=== PATIENT | female | born 1995 | race Caucasian/White ===

== ENCOUNTER 2017-05-26 15:07 | Emergency (ER) | payer OTHER, BC, SELFPAY ==
[2017-05-26 15:08] VITALS: BP 119/69; PULSE 73; RESP 16; TEMP 36.2; O2SAT 98; BMI 31.3
--- NOTE | 2017-05-26 15:29 | ED.VISSUMM ---
- ER Visit Summary Date of Service: 05/26/17 Chief Complaint: [] Rash History of Present Illness: The patient is a 21 F [] c/o rash to B/L breasts and bilateral upper extremities and left lower extremity. 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 She reports she was holding up the parts to her chest and the oil may have leaked through into her close. Physical Examination: [] Rash consistent with contact dermatitis to the breasts and left upper extremity and left lower extremity. Test Results: [] None Emergency Department Course and Treatment: [] Patient given prednisone and Benadryl in the emergency department and a prescription for prednisone for home. Treatment Plan: [] Continue taking prednisone at home. Disposition: [] Discharge, stable. Impression: [] Contact dermatitis This note was generated with [employer] dictation software. It may contain incorrect words, spelling, and punctuation that were not noted in review of the chart prior to signing ED Disposition - Plan for ED Patient: Chief Complaint: Rash Referrals: [facility] Doctor,Out of [Primary Care Provider] -
--- NOTE | 2017-05-26 15:31 | ED.DEP ---
ED Disposition - Plan for ED Patient: Disposition: Home or Assisted Living Chief Complaint: Rash Instructions: ED Dermatitis Contact Prescriptions: Prednisone [Deltasone] 40 mg PO DAILY #5 tab Referrals: [facility] Doctor,Out of [Primary Care Provider] -
[2017-05-26] MEDS: DiphenhydrAMINE 25 MG Capsule 50 MG PO (15:48)
[2017-05-26 15:59] VITALS: PULSE 71; RESP 16; O2SAT 99
== END 2017-05-26 16:00 | disposition home or self-care (01) ==
LOC: ED 15:55
PROVIDERS: Emergency Provider Emergency Medicine
DX: L25.9 Unspecified contact dermatitis, unspecified cause (principal); E03.9 Hypothyroidism, unspecified; Z79.899 Other long term (current) drug therapy
CPT/HCPCS: 99283

== ENCOUNTER 2019-04-06 00:48 | Emergency (ER) | payer OTHER, MEDICAID, SELFPAY ==
[2019-04-06 00:50] VITALS: BP 130/82; PULSE 100; RESP 15; TEMP 37.1; O2SAT 100; BMI 35.3
--- NOTE | 2019-04-06 00:57 | ED.DCSUM_ITS ---
- ER Visit Summary Date of Service: 04/06/19 Chief Complaint: Nausea and vomiting History of Present Illness: The patient is a 23 F past medical history of hypothyroidism. Currently 17 weeks due September 09, 2019. This is her first . Patient states that Saturday evening earlier tonight she started having nausea and vomiting around 7 PM. She later developed some mild left upper quadrant abdominal discomfort. No documented fever but subjectively if felt feverish. No diarrhea. No constipation. No dysuria. She has previously had a ultrasound showing a single live IUP. She denies any vaginal bleeding. Physical Examination: Young female actively vomiting. Vital signs are stable. She is afebrile. She does not look septic or toxic. HEENT exam unremarkable. Moist with membranes. Neck nontender. Lungs clear to auscultation bilaterally. Heart regular rhythm rate about 95. No murmur. Abdomen gravid uterus nontender. Normal bowel sounds no peritoneal signs. Right upper right lower quadrant unremarkable. No Jose sign or McBurney's point tenderness. Patient is moving all 4 extremities. Neurovascularly intact. No edema. Neurologically she is awake and alert with no focal motor deficits. Skin is unremarkable. Test Results: Hepatic enzymes are normal as is her lipase. Positive heart tones on ultrasound. Emergency Department Course and Treatment: Most likely patient is a viral syndrome versus nausea and vomiting of . Should be treated with a liter normal saline and IV Zofran. Patient is doing better on repeat exam at oh 2:20 AM. Positive p.o. fluids. She was also given a GI cocktail and Pepcid. Treatment Plan: Zofran as needed for nausea. Plenty of fluids and rest. [place] diet and increase slowly as tolerated. Follow-up with your [facility] for reevaluation. Disposition: Discharge Impression: Acute nausea and vomiting at 17 weeks This note was generated with [employer] dictation software. It may contain incorrect words, spelling, and punctuation that were not noted in review of the chart prior to signing ED Disposition - Plan for ED Patient: Referrals: [facility] Doctor,Out of [NON-STAFF] -
[2019-04-06] MEDS: 0.9% Normal Saline 1,000 ML 1000 ML IV (01:08)
[2019-04-06] MEDS: Ondansetron 4 MG/2 ML Vial IV (01:09)
[2019-04-06 01:37] LABS: AST(SGOT) 14 U/L (15-37); Alanine Aminotransfer ALT/SGPT 18 U/L (13-56); Albumin, Serum 3.3 g/dL (3.2-5.0); Alkaline Phosphatase 60 U/L (45-117); Bilirubin, Direct 0.08 mg/dL (0.00-0.30); Globulin 4.9 g/dL (2.2-4.2); Lipase 65 U/L (73-393); Protein, Total 8.2 g/dL (6.4-8.2)
--- NOTE | 2019-04-06 02:22 | DCINST.ED_ITS ---
ED Disposition - Plan for ED Patient: Disposition: Home or Assisted Living Instructions: VOMITING (8y-Adult) Prescriptions: Ondansetron [Zofran Odt] 4 mg PO Q8H PRN PRN #10 tab PRN Reason: Nausea Prescription Printed Additional Instructions: Follow-up with your SPOOL FIXER or emergency department technician. Zofran as needed for nausea.
[2019-04-06] MEDS: Famotidine 20 MG Tablet 40 MG PO (02:34)
[2019-04-06] MEDS: Mag Hydrox/Al Hydrox/Simeth 30 ML UDC PO (02:34)
== END 2019-04-06 02:34 | disposition home or self-care (01) ==
PROVIDERS: Emergency Provider Emergency Medicine
DX: O21.9 Vomiting of pregnancy, unspecified (principal); Z3A.17 17 weeks gestation of pregnancy; O99.282 Endocrine, nutritional and metabolic diseases complicating pregnancy, second trimester; E03.9 Hypothyroidism, unspecified; Z79.899 Other long term (current) drug therapy
CPT/HCPCS: 80076; 83690; 96361; 96374; 99283; A4216; J2405

== ENCOUNTER 2019-05-26 17:01 | Outpatient (CLI) | payer OTHER, MEDICAID, SELFPAY ==
[2019-05-26 17:33] VITALS: BMI 37.4
[2019-05-26 18:20] LABS: Color, Urine Yellow (Yellow); Glucose, Dipstick Normal (Normal); Ketone-Dipstick 5 mg/dl (Negative); Leukocyte Esterase-Dipstick 25 /ul (Negative); Nitrite-Dipstick Negative (Negative); Occult Blood-Urine Negative /ul (Negative); Protein-Dipstick Negative (Negative); Specific Gravity, Urine 1.015 (1.002-1.030); Urine Bilirubin Dipstick Negative (Negative); Urine Clarity Clear (Clear); Urine Urobilinogen Normal (Normal); Urine pH 6.5 (5.0 - 8.0)
--- NOTE | 2019-05-26 21:00 | OB.TRI.HP_ITS ---
History of Present Illness Reason For Visit: NST Date of Service: 05/26/19 Final TREV: 09/09/19 Gestational age: 24 Weeks and 6 Days Allergies Penicillins Allergy (Verified 05/26/19 17:32) Unknown sulfamethoxazole [From Bactrim] Allergy (Verified 05/26/19 17:32) Rash trimethoprim [From Bactrim] Allergy (Verified 05/26/19 17:32) Rash amoxicillin Adverse Reaction (Verified 05/26/19 17:32) Unknown Laboratory Studies: Laboratory Tests 05/26/19 Range/Units 17:45 Urine Color Yellow (Yellow) Urine Clarity Clear (Clear) Urine pH 6.5 (5.0 - 8.0) Ur Specific [place] 1.015 (1.002-1.030) Urine Protein Negative (Negative) mg/dl Urine Glucose (UA) Normal (Normal) mg/dl Urine Ketones 5 H (Negative) mg/dl Urine Occult Blood Negative (Negative) /ul Urine Nitrite Negative (Negative) Urine Bilirubin Negative (Negative) mg/dL Urine Urobilinogen Normal (Normal) mg/dl Ur Leukocyte Esterase 25 H (Negative) /ul NST - FHR Rate Baby A Baseline: 150 Decelerations:: Variable NST Reactive:: Appropriate for gestational age Impression/Plan Reassuring NST for 24 weeks for patient with decreased FM
== END 2019-05-26 19:20 | disposition home or self-care (01) ==
LOC: WPOUT 17:02 → OBT 17:03
PROVIDERS: Referring Provider Obstetrics & Gynecology; Visit Provider Obstetrics & Gynecology
DX: O36.8120 Decreased fetal movements, second trimester, not applicable or unspecified (principal); Z3A.24 24 weeks gestation of pregnancy
CPT/HCPCS: 59025; 59050; 81002; 99218; G0378

== ENCOUNTER 2019-08-29 07:00 | Inpatient (IN) | payer OTHER, MEDICAID, SELFPAY ==
[2019-05-28 13:26] VITALS: BMI 37.4
[2019-08-29] VITALS (44 sets, daily range): BP systolic 109–213; BP diastolic 55–140; PULSE 83–184; RESP 18; TEMP 36.1–37.7; O2SAT 98–100; BMI 44.3
[2019-08-29 07:00] LABS: ROM Internal Control Test YES-OK TO RESULT pt. (Internal QC); ROM Patient Test POSITIVE (Negative)
[2019-08-29] MEDS: Lactated Ringers 1,000 ML 200 ML IV ×3 (07:30→19:06)
[2019-08-29] MEDS: Lactated Ringers 500 ML 999 ML IV ×2 (07:53→17:33)
[2019-08-29 08:07] LABS: Absolute Lymphocyte Count 2.31 X10^3/uL (0.83-4.51); Absolute Neutrophil Count 11.7 X10^3/uL (2.0-7.7); Basophil# 0.03 X10^3/uL; Basophil% 0.2 % (0-1); Eosinophil# 0.03 X10^3/uL; Eosinophils% 0.2 % (0-5); Hematocrit 37.8 % (37-47); Hemoglobin 13.1 g/dL (12.0-15.0); Lymphocyte # 2.31 X10^3/ul (4.0); Lymphocyte % 15.3 % (19-41); Mean Corp Hgb Conc 34.7 g/dL (32-36); Mean Corpuscular Hgb 30.3 pg (27.0-32.0); Mean Corpuscular Volume 87.3 fL (81-99); Mean Platelet Vol. 11.4 fl (6.2-12.0); Monocyte# 0.89 X10^3/uL; Monocyte% 5.9 % (0-10); NRBC Flagged by Analyzer 0 % (0-5); Neutrophil # 11.72 X10^3/uL (2.7-7.7); Neutrophil % 77.5 % (47-70); Platelet Count 256 K/mm3 (150-450); RBC Distribution Width CV 13.9 % (11.6-14.6); RBC Distribution Width SD 43.6 fl (35.1-43.9); Red Blood Count 4.33 M/mm3 (4.2-5.4); White Blood Count 15.1 K/mm3 (4.4-11.0)
--- NOTE | 2019-08-29 08:50 | PCM.HP.OB ---
History Date of Admission: 08/29/19 Final TREV: 09/09/19 Final TREV Source: US <20 weeks Gestational age: 38 Weeks and 3 Days History of this : This is a 24 year-old, @ 38.3 wks, SROM at home in early labor Medical History: Medical History (Last Updated 06/05/19 @ 09:[address] 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, E06.3 Allergies sulfamethoxazole [From Bactrim] Allergy (Verified 08/29/19 06:31) Rash trimethoprim [From Bactrim] Allergy (Verified 08/29/19 06:31) Rash Home Medications: Home Medications Pnv No.95/Ferrous Fum/Folic AC [ Caplet] 1 ea PO DAILY 04/06/19 Levothyroxine Sodium [Synthroid] 100 mcg PO DAILY 08/29/19 Smoking Status: Former smoker Substance Use Type: Alcohol, Marijuana Number of Fetus(es): 1 History Past Pregnancies: Past Pregnancies Delivery Date Name GA/ Weeks Outcome Route Wt Sex Labor Length Anesthesia Delivery Location Provider FOB Expected Infant Delivery Method: Spontaneous Vaginal Physical Exam Vitals: Vital Signs Temp Pulse BP Pulse Ox 99.0 F 98 141/85 H 98 08/29/19 08:29 08/29/19 08:47 08/29/19 08:47 08/29/19 08:44 General: Alert, Oriented x3 Abdomen: Soft, Non Tender, Gravid Neurological: Cranial nerves II-XII grossly intact Presentation: Cephalic Cervix Dilation (cm): 3.5 - per RN Station: -2 Effacement (%): 60 Assessment/Plan This is a 24 year-old, G 1P0 @ 38.3 weeks, SROM at home in early labor admit to L&D monitor fhr/toco anticipate epidural for pain mgmt PCN for GBS pitocin for augmentation if indicated
[2019-08-29] MEDS: fentaNYL-bupivacaine (epidural) 100 ML BAG EPIDURAL ×2 (09:24→16:25)
[2019-08-29] MEDS: Ondansetron 4 MG/2 ML Vial IV ×3 (10:09→22:04)
[2019-08-29] MEDS: Oxytocin 30 units/NS 500 ml 30 UNITS/500 ML IV.SOLN IV (10:37)
--- NOTE | 2019-08-29 22:42 | PCM.PN.BLA ---
Progress Note Patient seen at bedside and examined. Vaginal exam 8.5/90/0 with caput appreciated. Difficult to tell if the fetus is in the OP presentation. At this time I discussed with the patient that she has been 7 cm since approximately 2 PM and 8 cm since approximately 4:30 PM with minimal change now with caput appreciated my recommendation is for primary section for arrest of dilation-8 cm for approximately 6 hours. Discussion of primary and risks reviewed with the patient she agrees to proceed at this time. OR staff was notified. Preoperative azithromycin 500mg and Ancef 2 g were ordered. STROKE Vital Signs/Narrative: Vital Signs Temp Pulse BP Pulse Ox 08/29/19 22:20 99.2 F H 104 H 120/69 100 08/29/19 21:18 98.2 F 95 122/71 H 100 08/29/19 20:27 98 100 08/29/19 20:26 99.3 F H 88 115/56 L 08/29/19 19:22 99.0 F 99 120/63 100
[2019-08-29] MEDS: Sodium Citrate/Citric Acid 30 ML UDC PO (22:45)
[2019-08-29] MEDS: Cefazolin 2 GM in 0.9% Normal Saline 100 ML IV (22:57)
--- NOTE | 2019-08-29 23:39 | PCM.OPRPT ---
Delivery Classification: OLEGARIO Final TREV: 09/09/19 Gestational age: 38 Weeks and 3 Days chemical technician: Farshad Grullon Type of Anesthesia:: Epidural Implants Used: none Date of Procedure: 08/29/19 Pre-Operative Diagnosis: term gestation, arrest of dilation Post-Operative Diagnosis: Same, Live female OP position, Indications: Arrest of dilation 8cm for approximately 6 hours with SROM and Adequate contractions Description of Procedure: After informed consent was obtained the patient was taken the operating room. She was then placed in the supine position. She was prepped and draped in the normal sterile fashion. Epidural Anesthesia was found to be adequate. At this time a Pfannenstiel skin incision was made with a knife was carried down to the underlying layer of the fascia. The fascial incision was then extended laterally using curved Posadas scissor. Attention was then turned to the superior aspect of the fascial edge was grasped with 2 straight [place] clamps tented up and the rectus muscle dissected off sharply using curved Posadas scissor. Attention was then turned to the inferior aspect where again [place] clamps were placed in the rectus muscles were tented up and the fascia was dissected off sharply using the curved Posadas scissor. Rectus muscles were then in the midline bluntly and peritoneum was entered bluntly. Gentle opposing traction was placed. At this time the vesicouterine peritoneum was identified. Scalpel was used to make a uterine incision in a low transverse fashion. The uterus was then entered bluntly gentle opposing traction was placed to extend this incision. Thick meconium fluid noted. 's head in OP position- was brought to the uterine incision was delivered atraumatically. Cord was clamped and cut infant was handed to the waiting nursery team. The Placenta was removed from the uterus. The uterus was then removed from the abdominal cavity. The uterus was cleared of all clots and debris using a lap. At this time the uterine incision was reapproximated using #1 Vicryl in a running locked fashion- followed by a second imbricating layer using #1 vicryl. Hemostasis was appreciated. Posterior cul-de-sac was then cleared of all clots and debris. Uterus was placed back in the abdominal cavity. Gutters were cleared of all clots and debris. Uterine incision was reevaluated and noted to be of excellent hemostasis. Zaida placed. At this time the peritoneum was grasped with Kellys reapproximated using #2 Vicryl suture in a running fashion. Fascia was then reapproximated using #1 PDS in a running fashion. Zaida placed in Subcu layer- Subcu layer was reapproximated with #2 0 vicryl suture in an interrupted fashion. Subcu layer was closed using 4-0 vicryl on a Duong needle in a subcu fashion. Dry sterile dressing was applied. Instrument lap needle count correct ?2. Anticipated normal postoperative course. Amniotic Membrane Rupture Type: Spontaneous Amniotic Fluid Description: Thick meconium - at time of delivery Placenta Disposition: [facility] Drain: [place] to straight drain Cord Entanglement: None Cord Vessel Description: 3 Vessels Esitmated Blood Loss (ml): 600 Gender: Female (1 minute): 8 (5 minute): 9 Antibiotic Given: Ancef 2 grams IV x1, Zithromax 500 mg/5 mL X1 Pt instructed on risks of surgery: Bleeding, Anesthesia Risks, Infection, Injury to surrounding structure(s) including bowel and bladder Complications: None - Admit VTE Documentation VTE Present on Admission: Yes VTE Mechan Device Prophylaxis: SCD's VTE Pharm Prophylaxis ordered?: Yes
[2019-08-29] MEDS: Oxytocin 30 units/NS 500 ml 30 UNITS/500 ML IV.SOLN 167 UNITS IV (23:55)
[2019-08-30] VITALS (15 sets, daily range): BP systolic 101–128; BP diastolic 51–88; PULSE 78–100; RESP 16–18; TEMP 36.4–37.7; O2SAT 96–100
[2019-08-30] MEDS: HYDROmorphone 1 MG/ML Syringe IV ×2 (00:09→03:20)
[2019-08-30] MEDS: Lactated Ringers 1,000 ML 100 ML IV (02:46)
[2019-08-30] MEDS: Ketorolac 30 MG/ML Syringe IV ×4 (06:00→23:58)
[2019-08-30] MEDS: Levothyroxine 100 MCG Tablet PO (06:06)
[2019-08-30 06:16] LABS: Hematocrit 32.6 % (37-47); Hemoglobin 10.6 g/dL (12.0-15.0); Mean Corp Hgb Conc 32.5 g/dL (32-36); Mean Corpuscular Hgb 29.6 pg (27.0-32.0); Mean Corpuscular Volume 91.1 fL (81-99); Platelet Count 202 K/mm3 (150-450); RBC Distribution Width CV 14.3 % (11.6-14.6); RBC Distribution Width SD 47.7 fl (35.1-43.9); Red Blood Count 3.58 M/mm3 (4.2-5.4); White Blood Count 18.9 K/mm3 (4.4-11.0)
[2019-08-30 06:20] LABS: Scan Indicated on CBC? Y/N NO
--- NOTE | 2019-08-30 08:25 | PCM.PN.OB ---
Subjective: pt seen at bedside, doing well. pt reports good pain control. lochia mild. Breast feeding. Shepherd still in place. denies N/v or flatus at this time. - Physical Exam Vitals/I&O's: Vital Signs Temp Pulse Resp BP Pulse Ox 97.6 F L 89 18 123/52 H 98 08/30/19 07:50 08/30/19 07:50 08/30/19 07:50 08/30/19 07:50 08/30/19 07:50 Oxygen Delivery Method Room Air Weight: 96.162 kg Body Mass Index (BMI) 44.3 Intake and Output for Last 24 Hours 08/28/19 08/29/19 08/30/19 23:59 23:59 23:59 Intake Total 4068.60 / 4068.60 1575.95 / 1575.95 Output Total 500 / 500 250 / 250 Balance 3568.60 / 3568.60 1325.95 / 1325.95 General: Alert, Oriented x3 Abdomen: Soft, Non-Distended, - - fundus firm, dressing dry and intact Extremities: No Calf Tenderness Laboratory Results 08/29/19 07:52: Blood Type A POSITIVE, Antibody Screen NEGATIVE 08/30/19 06:03: WBC 18.9 H, RBC 3.58 L, Hgb 10.6 L, Hct 32.6 L, MCV 91.1, MCH 29.6, MCHC 32.5 D, RDW Std Deviation 47.7 H, RDW Coeff of Miguel 14.3, Plt Count 202, MPV 11.0 Current Medications Acetaminophen (Tylenol) 1,000 mg PO Q8H PRN PRN PRN Reason: Pain Score 1-3/10;Temp>99.6F Bisacodyl (Dulcolax) 10 mg RECTAL UD PRN PRN Reason: If no BM Enoxaparin Sodium (Lovenox) 40 mg SC BID YARI Hydrocortisone (Hytone) 1 applic TOPICAL TID PRN PRN; Protocol PRN Reason: Discomfort Hydromorphone HCl (Dilaudid Inj) 0.5 - 1.5 mg IV Q3H PRN PRN PRN Reason: Pain Score 4-10/10 Stop: 08/30/19 23:47 Last Admin: 08/30/19 03:20 Dose: 1 mg Documented by: Lactated Ringer's () 1,000 mls @ 100 mls/hr IV .Q10H [facility] Last Admin: 08/30/19 02:46 Dose: 100 mls/hr Documented by: Naloxone HCl 4 mg/ Dextrose 504 mls @ 0 mls/hr IV .Q0M PRN; Protocol PRN Reason: Respiratory depression Ibuprofen (Motrin) 600 mg PO Q6H PRN PRN PRN Reason: Pain Score 1-3/10 Ketorolac Tromethamine (Toradol (Bkc)) 30 mg IV Q6H [facility] Stop: 09/01/19 00:01 Last Admin: 08/30/19 06:00 Dose: 30 mg Documented by: Levothyroxine Sodium (Synthroid) 100 mcg PO DAILY@0600 [facility] Last Admin: 08/30/19 06:06 Dose: 100 mcg Documented by: Methylergonovine Maleate (Methergine) 0.2 mg IM X1 PRN PRN Reason: Uterine Atony Naloxone HCl (Narcan) 0.02 mg IV Q1M PRN PRN Reason: RR <10 and pt unresponsive Ondansetron HCl (Zofran) 4 mg IV Q4H PRN PRN PRN Reason: Nausea Oxycodone HCl (Oxyir) 5 - 10 mg PO Q4H PRN PRN PRN Reason: Pain Score 4-10/10 Prochlorperazine Edisylate (Compazine Iv) 10 mg IV Q6H PRN PRN PRN Reason: NAUSEA Senna/Docusate Sodium (Senokot-S, Larissa-Colace) 0 tablet PO DAILY PRN PRN Reason: Constipation Simethicone (Mylicon) 80 mg PO PCHS PRN PRN Reason: Indigestion/stomach pain Sodium Chloride () 5 - 15 ml IV UD PRN PRN Reason: SALINE FLUSH Medical Necessity - Tobacco Use Smoking Status: Former smoker Assessment/Plan POD#1, doing well routine care pain mgmt ambulation sherry shepherd
[2019-08-30] MEDS: Senna/Docusate Sodium 1 Tablet PO (09:20)
[2019-08-30] MEDS: oxyCODONE 5 MG Tablet PO ×4 (09:21→21:38)
[2019-08-30] MEDS: 0.9% Saline Lock 10 ML Syringe IV ×4 (09:41→23:58)
[2019-08-30] MEDS: Enoxaparin 40 MG/0.4 ML Syringe SC ×2 (12:35→21:39)
[2019-08-31 01:10] VITALS: BP 129/76; PULSE 98; RESP 18; TEMP 37.1
--- NOTE | 2019-08-31 01:10 | NURSING ---
RN called to room by patient. Patient reported passing a large clot into the toilet. This RN evaluated clot and it looked medium in size. Larger than a grape but smaller than an egg. Assessed fundus and it was -1, midline, and semi-firm. Massaged to completely firm. No large gushes during massage. Vital signs stable with BP: 129/76, HR: 98, Resp: 18, temp 98.8. Patient stated it was the first clot she had passed since delivery and that bleeding on the pad was light. After assessment, this RN decided no further action was needed at this time. Instructed patient to call RN to room if another clot was passed for further assessment.
[2019-08-31] MEDS: Acetaminophen 500 MG Tablet 1000 MG PO (04:07)
[2019-08-31] MEDS: Ketorolac 30 MG/ML Syringe IV ×3 (05:51→17:41)
[2019-08-31] MEDS: 0.9% Saline Lock 10 ML Syringe IV ×3 (05:51→17:41)
[2019-08-31] MEDS: Levothyroxine 100 MCG Tablet PO (05:56)
[2019-08-31 08:00] VITALS: BP 128/60; PULSE 88; RESP 16; TEMP 36.3; O2SAT 99
[2019-08-31] MEDS: Enoxaparin 40 MG/0.4 ML Syringe SC ×2 (09:37→21:50)
[2019-08-31] MEDS: oxyCODONE 5 MG Tablet PO ×2 (11:33→21:50)
[2019-08-31 11:37] VITALS: BP 138/79; PULSE 94; RESP 18; O2SAT 98
--- NOTE | 2019-08-31 11:41 | NURSING ---
Patient called and requested pain medication for pain rating of 8/10. States she woke up in a lot of pain. She had just been up to the restroom and passed a clot in the toilet. I visualized the clot which was about the size of the palm of my hand. Fundus is -2, firm and midline. Lochia has been appropriate. Vitals taken and recorded. Patient denies feeling dizzy or lightheaded when up. Will notify OB when she rounds unit shortly.
--- NOTE | 2019-08-31 13:10 | CASEMGMT ---
Social Work Assessment Labor and Delivery Unit Patient Address: [address] [place] [address] Phone number: [phone] Date of Referral: 08/29/2019 Time of Referral: 234 Referred By: Dr. Ontiveros Date of Intervention: 08/31/2019 Time of Intervention: 1310 Reason for Referral: mental health History obtained from: medical records, patient/mother of baby (MOB), and father of baby (FOB) Doug Elliott Household composition: MOB and FOB live with MOB's parents. Home is reported as safe and adequate. Patient's parent/guardian status: ELENITA Resendiz (age 22) has been with FOB Doug Elliott (age 21) for 4 years. Privately, MOB denies any form of abuse, control, intimidation in this relationship. [place] baby, Mitra Elliott (born on 08.29.2017) is the first child for both. Medical History: MOB is G1, P0 to 1 after delivering Mitra. care started in [place] at 15 weeks, a transfer of care from Dr. Raymond in [place]. Transfer of care reportedly due to insurance issues. MO with history of PCOS, migraines, and hypothyroidism. Baby born via OLEGARIO at 38 weeks gestation. Birthweight 7 pounds 3 ounces. Apgars 8 and 9. Educational Status: MOB graduated from high school, reports to be able to read and write. No learning comprehension issues reported. 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 ELENITA is not currently employed but plans to look for a job when able. No concerns with finances voiced. Infant Supplies: MOB reports to have needed baby supplies including bassinet, crib, car seat, clothing, diapers, wipes, and a breast pump. Childcare/Caregiver(s): MOB and FOB. Transportation: No reported issues. Programs/Agencies Involved: Active with [facility] for food and medical. Active with WIC. MOB reports to have a counselor named Anais at [facility] (but admittedly has not gone recently). Agrees to a Help Me Grow referral. Children Services/Legal Issues: None reported. Behavioral Health Issues: Mental Health History: MOB reports history of depression and anxiety, with medications recommended during this . MOB admits she did not take the medicine and prefers counseling. MOB denies any thoughts of suicide during this , but west report a history of thoughts 2 years ago. MOB reports history of self injury by cutting, more as a way to feel in control rather than to take her life. MOB reports has not self-injured in two years. [place] Depression screen completed at [facility] visit 04.07.2019 was an 8. Today score is a 5 (see attached link). Substance Use History: MOB reports history of using alcohol and marijuana, describing this as something she did when she was younger. Denies use was problematic or that was dependent on either substance. MOB reports last use was in November or December when found out was . MOB reports ti was not hard at all to quit. MOB denies history of other drug use such as heroin, cocaine, meth, or narcotic type pills. No tobacco use at this time. Family History: ELENITA's sister with history of depression and depression. Drug Screens: maternal drugs screen on 03.20.2019 negative. Baby's urine negative at delivery. There is a meconium and this is pending. Family/Social Stressors: FOB reports he was diagnoses with depression and started on medication during ELENITA's . FOB reports his parents both have bipolar disorder, so FOAntwon was tested and it was deemed that ALIVIA has depression only. FOB reports since starting on medication this has been helpful. Support Systems: MOB reports her parents and ALIVIA's parents are all supportive. MOB reports to lean on her mother for emotional support. Depression/Shaken Baby/Safe Sleeping : Educated parents to mood and anxiety disorders, risk factors, and reinforced importance of seeking out care and support should symptoms arise and/or cause distress. Education on shaken baby prevention and safe sleeping discussed as well. ASSESSMENT: Met with MOB and FOB together and then alone with MOB to complete depression screening (also addressed DV/IPV at this time). MOB and FOB both pleasant and cooperative. Both engaged in conversation, held normal eye contact, and made appropriate comments. MOB and FOB reports to feel good about the baby, to have help at home, and to have needed supplies to care for baby. MOB and FOB both agree to a Help Me Grow referral as well. MOB denies any intent to start using marijuana again not that now . MOB reports willingness to go back to counseling should mood or anxiety issues surface. No voiced concerns by staff regarding parent/child bonding or interactions. Safe Plan of Care for related to substance use: Continue abstinence of marijuana or other substances. PLAN: MOB and baby to home when ready. [facility] resource lists provided as well as resources on mood and anxiety disorders. [facility] referral to be completed. MOB will call WIC and JFS to alert to of baby. No other services requested or indicated. -ELIDA Callejas, POCKET AND PULLEY MACHINE OPERATOR
[2019-08-31 13:23] VITALS: BP 117/66; PULSE 96; RESP 18; TEMP 36.3; O2SAT 98
--- NOTE | 2019-08-31 14:17 | PCM.PN.OB ---
Subjective: No complaints - Physical Exam Vitals/I&O's: Vital Signs Temp Pulse Resp BP Pulse Ox 97.3 F L 96 18 117/66 98 08/31/19 13:23 08/31/19 13:23 08/31/19 13:23 08/31/19 13:23 08/31/19 13:23 Oxygen Delivery Method Room Air Weight: 212 lb Body Mass Index (BMI) 44.3 Intake and Output for Last 24 Hours 08/29/19 08/30/19 08/31/19 23:59 23:59 23:59 Intake Total 4068.60 / 4068.60 3617.62 / 3617.62 Output Total 500 / 500 1050 / 1050 Balance 3568.60 / 3568.60 2567.62 / 2567.62 General: Alert, Oriented x3 Abdomen: Soft, Non Tender, Non-Distended - ff mid & below umb; incision - bandage c/d/i; some abdominal erythema on panus and on skin but no erythema near incision Extremities: No Calf Tenderness Musculoskeletal: No Tenderness to Palpation of Joints or Extremities Neurological: Cranial nerves II-XII grossly intact Current Medications Acetaminophen (Tylenol) 1,000 mg PO Q8H PRN PRN PRN Reason: Pain Score 1-3/10;Temp>99.6F Last Admin: 08/31/19 04:07 Dose: 1,000 mg Documented by: Bisacodyl (Dulcolax) 10 mg RECTAL UD PRN PRN Reason: If no BM Enoxaparin Sodium (Lovenox) 40 mg SC BID [facility] Last Admin: 08/31/19 09:37 Dose: 40 mg Documented by: Hydrocortisone (Hytone) 1 applic TOPICAL TID PRN PRN; Protocol PRN Reason: Discomfort Naloxone HCl 4 mg/ Dextrose 504 mls @ 0 mls/hr IV .Q0M PRN; Protocol PRN Reason: Respiratory depression Ibuprofen (Motrin) 600 mg PO Q6H PRN PRN PRN Reason: Pain Score 1-3/10 Ketorolac Tromethamine (Toradol (Bkc)) 30 mg IV Q6H [facility] Stop: 09/01/19 00:01 Last Admin: 08/31/19 12:03 Dose: 30 mg Documented by: Levothyroxine Sodium (Synthroid) 100 mcg PO DAILY@0600 [facility] Last Admin: 08/31/19 05:56 Dose: 100 mcg Documented by: Methylergonovine Maleate (Methergine) 0.2 mg IM X1 PRN PRN Reason: Uterine Atony Naloxone HCl (Narcan) 0.02 mg IV Q1M PRN PRN Reason: RR <10 and pt unresponsive Ondansetron HCl (Zofran) 4 mg IV Q4H PRN PRN PRN Reason: Nausea Oxycodone HCl (Oxyir) 5 - 10 mg PO Q4H PRN PRN PRN Reason: Pain Score 4-10/10 Last Admin: 08/31/19 11:33 Dose: 10 mg Documented by: Prochlorperazine Edisylate (Compazine Iv) 10 mg IV Q6H PRN PRN PRN Reason: NAUSEA Senna/Docusate Sodium (Senokot-S, Larissa-Colace) 0 tablet PO DAILY PRN PRN Reason: Constipation Last Admin: 08/30/19 09:20 Dose: 2 tablet Documented by: Simethicone (Mylicon) 80 mg PO PCHS PRN PRN Reason: Indigestion/stomach pain Last Admin: 08/30/19 21:38 Dose: 80 mg Documented by: Sodium Chloride () 5 - 15 ml IV UD PRN PRN Reason: SALINE FLUSH Last Admin: 08/31/19 12:03 Dose: 10 ml Documented by: Medical Necessity - Tobacco Use Smoking Status: Former smoker Assessment/Plan POD#2 ID - AF, no signs infection. Skin erythema - away from incision thus no concern for cellulitis. Suspect irritant dermatitis vs yeast infection. Rx nystatin cream and hydrocortisone cream given. D/c home later today per patient request.
--- NOTE | 2019-08-31 14:20 | DCINST_ITS ---
Discharge Diet: No Restrictions Discharge Activity: May not drive while taking narcotic pain medications., May Shower May resume sexual activity in: 6 weeks Weight Bearing Status: Weight bearing as tolerated Call your doctor if your incision/area has: Continuous Slow Oozing, Sudden Increased Bleeding, Increased Pain/ Swelling, Foul Smelling Discharge, Swelling at the incision site Suture Line Care: Avoid Pulling/Pushing, Avoid Pinching/Bending Cleanse incision/area with: Soap & Water Additional Instructions: If you experience any of the following, contact your healthcare provider. * Bleeding that soaks a pad every hour for 2 hours * Fever 100.4 or higher * Unrelieved incision or abdominal pain * Swelling, redness, discharge or bleeding from your incision or episiotomy site * Your incision begins to separate * Problems urinating (including inability to urinate or burning while urinating). * Visual changes * Severe headache * Flu-like symptoms * Pain or redness in one of both of your breasts * Pain, warmth, tenderness or swelling in your legs, especially the calf area * Frequent nausea and vomiting * Symptoms of depression or anxiety If you experience any of the following, call 911 or go to the nearest Emergency Room. * Chest pain * Problems breathing * Seizure activity * Partial or complete paralysis of a body part, slurred speech, weakness or drooping of the face, or a sudden inability to walk or hold your balance Allergies/Adverse Reactions: Allergies sulfamethoxazole [From Bactrim] Allergy (Verified 08/29/19 06:31) Rash trimethoprim [From Bactrim] Allergy (Verified 08/29/19 06:31) Rash Medications to take at Discharge Pnv No.95/Ferrous Fum/Folic AC [ Caplet] 1 ea PO DAILY 04/06/19 Levothyroxine Sodium [Synthroid] 100 mcg PO DAILY 08/29/19 Acetaminophen [Tylenol] 1,000 mg PO Q8H PRN PRN tablet 08/31/19 Hydrocortisone 2.5% Crm [Hytone] 1 applic TOPICAL TID PRN PRN #1 tube 08/31/19 Ibuprofen [Motrin] 600 mg PO Q6H PRN PRN tablet 08/31/19 Nystatin 1 applicatio TP TID #30 g 08/31/19 Ondansetron HCl [Zofran] 4 mg PO Q8H PRN PRN #10 tab 08/31/19 Oxycodone [Oxyir] 5 - 10 mg PO Q4H PRN PRN 5 Days #20 tab 08/31/19 Senna/Docusate Sodium [Senokot-S] 1 tab PO DAILY PRN #15 tab 08/31/19 The following prescriptions were given: Hydrocortisone 2.5% Crm [Hytone] 1 applic TOPICAL TID PRN PRN #1 tube PRN Reason: Discomfort Transmission Status: Pending to [facility] Nystatin 1 applicatio TP TID #30 g Transmission Status: Pending to [facility] Oxycodone [Oxyir] 5 - 10 mg PO Q4H PRN PRN 5 Days #20 tab PRN Reason: Pain Score 4-10/10 Transmission Status: Sent to [facility] Senna/Docusate Sodium [Senokot-S] 1 tab PO DAILY PRN #15 tab PRN Reason: Constipation Transmission Status: Pending to [facility] Ondansetron HCl [Zofran] 4 mg PO Q8H PRN PRN #10 tab PRN Reason: Nausea Transmission Status: Pending to [facility] Follow-Up: Call to make an appointment with your doctor for an incision check in 1-2 weeks. You will also need a 6 week post- follow up appointment. Test results from this visit will be discussed in further detail at your follow- up appointment, if applicable.
[2019-08-31] MEDS: Nystatin Ointment 1 APPLIC TOPICAL ×2 (16:09→21:50)
[2019-08-31] MEDS: Hydrocortisone 2.5% Crm 1 APPLIC TOPICAL (16:09)
[2019-08-31] MEDS: Senna/Docusate Sodium 1 Tablet PO (17:40)
[2019-08-31 20:22] VITALS: BP 125/75; PULSE 92; RESP 16; TEMP 36.2; O2SAT 99
[2019-09-01 01:37] VITALS: BP 121/74; PULSE 96; RESP 20; TEMP 36.8; O2SAT 100
[2019-09-01] MEDS: Acetaminophen 500 MG Tablet 1000 MG PO (04:02)
[2019-09-01] MEDS: Ibuprofen 600 MG Tablet PO (06:10)
[2019-09-01] MEDS: Senna/Docusate Sodium 1 Tablet PO (06:10)
[2019-09-01] MEDS: Levothyroxine 100 MCG Tablet PO (06:10)
[2019-09-01] MEDS: Nystatin Ointment 1 APPLIC TOPICAL (06:10)
[2019-09-01 08:11] VITALS: BP 98/64; PULSE 96; RESP 18; TEMP 36.6; O2SAT 96
[2019-09-01] MEDS: oxyCODONE 5 MG Tablet PO (08:42)
--- NOTE | 2019-09-01 10:01 | PCM.PN.OB ---
- Physical Exam Vitals/I&O's: Vital Signs Temp Pulse Resp BP Pulse Ox 97.9 F 96 18 98/64 96 09/01/19 08:11 09/01/19 08:11 09/01/19 08:11 09/01/19 08:11 09/01/19 08:11 Oxygen Delivery Method Room Air Weight: 212 lb Body Mass Index (BMI) 44.3 Intake and Output for Last 24 Hours 08/30/19 08/31/19 09/01/19 23:59 23:59 23:59 Intake Total 3617.62 / 3617.62 Output Total 1050 / 1050 Balance 2567.62 / 2567.62 General: Alert, Oriented x3 Abdomen: Soft, Non Tender, Non-Distended - ff mid & below umb; incision - bandage c/d/i; some abdominal erythema (stable) on panus and on skin but no erythema near incision Extremities: No Calf Tenderness Neurological: Cranial nerves II-XII grossly intact Current Medications Acetaminophen (Tylenol) 1,000 mg PO Q8H PRN PRN PRN Reason: Pain Score 1-3/10;Temp>99.6F Last Admin: 09/01/19 04:02 Dose: 1,000 mg Documented by: Bisacodyl (Dulcolax) 10 mg RECTAL UD PRN PRN Reason: If no BM Enoxaparin Sodium (Lovenox) 40 mg SC BID [facility] Last Admin: 08/31/19 21:50 Dose: 40 mg Documented by: Hydrocortisone (Hytone) 1 applic TOPICAL TID PRN PRN; Protocol PRN Reason: Discomfort Last Admin: 08/31/19 16:09 Dose: 1 tube Documented by: Naloxone HCl 4 mg/ Dextrose 504 mls @ 0 mls/hr IV .Q0M PRN; Protocol PRN Reason: Respiratory depression Ibuprofen (Motrin) 600 mg PO Q6H PRN PRN PRN Reason: Pain Score 1-3/10 Last Admin: 09/01/19 06:10 Dose: 600 mg Documented by: Levothyroxine Sodium (Synthroid) 100 mcg PO DAILY@0600 [facility] Last Admin: 09/01/19 06:10 Dose: 100 mcg Documented by: Methylergonovine Maleate (Methergine) 0.2 mg IM X1 PRN PRN Reason: Uterine Atony Naloxone HCl (Narcan) 0.02 mg IV Q1M PRN PRN Reason: RR <10 and pt unresponsive Nystatin (Mycostatin) 1 applic TOPICAL TID YARI; Protocol Last Admin: 09/01/19 06:10 Dose: 1 applicatio Documented by: Ondansetron HCl (Zofran) 4 mg IV Q4H PRN PRN PRN Reason: Nausea Oxycodone HCl (Oxyir) 5 - 10 mg PO Q4H PRN PRN PRN Reason: Pain Score 4-10/10 Last Admin: 09/01/19 08:42 Dose: 5 mg Documented by: Prochlorperazine Edisylate (Compazine Iv) 10 mg IV Q6H PRN PRN PRN Reason: NAUSEA Senna/Docusate Sodium (Senokot-S, Larissa-Colace) 0 tablet PO DAILY PRN PRN Reason: Constipation Last Admin: 09/01/19 06:10 Dose: 2 tablet Documented by: Simethicone (Mylicon) 80 mg PO PCHS PRN PRN Reason: Indigestion/stomach pain Last Admin: 09/01/19 00:30 Dose: 80 mg Documented by: Sodium Chloride () 5 - 15 ml IV UD PRN PRN Reason: SALINE FLUSH Last Admin: 08/31/19 17:41 Dose: 10 ml Documented by: Medical Necessity - Tobacco Use Smoking Status: Former smoker Assessment/Plan POD#3 D/c home Skin dermatitis - suspect yeast vs irritation. Continue steroid & nystatin creams. Skin around incision without erythema.
--- NOTE | 2019-09-01 10:04 | DS.PCM_ITS ---
Discharge Date and Diagnosis Date of Admission: 08/29/19 Date of Discharge: 09/01/19 - Secondary Discharge Diagnosis Chronic Problems (Last Updated 06/05/19 @ 09:[address] 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 She had a primary c- section - see operative note. Hospital course Heme - HDS, post-op CBC reviewed. ID - AF, no signs infection. Skin erythema - away from incision thus no concern for cellulitis. Suspect irritant dermatitis vs yeast infection. Rx nystatin cream and hydrocortisone cream given. GI/ - no issues. - Physical Exam Vitals/I&O's: Vital Signs Temp Pulse Resp BP Pulse Ox 97.9 F 96 18 98/64 96 09/01/19 08:11 09/01/19 08:11 09/01/19 08:11 09/01/19 08:11 09/01/19 08:11 Oxygen Delivery Method Room Air Weight: 212 lb Body Mass Index (BMI) 44.3 Intake and Output for Last 24 Hours 08/30/19 08/31/19 09/01/19 23:59 23:59 23:59 Intake Total 3617.62 / 3617.62 Output Total 1050 / 1050 Balance 2567.62 / 2567.62 Current Medications Acetaminophen (Tylenol) 1,000 mg PO Q8H PRN PRN PRN Reason: Pain Score 1-3/10;Temp>99.6F Last Admin: 09/01/19 04:02 Dose: 1,000 mg Documented by: Bisacodyl (Dulcolax) 10 mg RECTAL UD PRN PRN Reason: If no BM Enoxaparin Sodium (Lovenox) 40 mg SC BID [facility] Last Admin: 08/31/19 21:50 Dose: 40 mg Documented by: Hydrocortisone (Hytone) 1 applic TOPICAL TID PRN PRN; Protocol PRN Reason: Discomfort Last Admin: 08/31/19 16:09 Dose: 1 tube Documented by: Naloxone HCl 4 mg/ Dextrose 504 mls @ 0 mls/hr IV .Q0M PRN; Protocol PRN Reason: Respiratory depression Ibuprofen (Motrin) 600 mg PO Q6H PRN PRN PRN Reason: Pain Score 1-3/10 Last Admin: 09/01/19 06:10 Dose: 600 mg Documented by: Levothyroxine Sodium (Synthroid) 100 mcg PO DAILY@0600 [facility] Last Admin: 09/01/19 06:10 Dose: 100 mcg Documented by: Methylergonovine Maleate (Methergine) 0.2 mg IM X1 PRN PRN Reason: Uterine Atony Naloxone HCl (Narcan) 0.02 mg IV Q1M PRN PRN Reason: RR <10 and pt unresponsive Nystatin (Mycostatin) 1 applic TOPICAL TID [facility]; Protocol Last Admin: 09/01/19 06:10 Dose: 1 applicatio Documented by: Ondansetron HCl (Zofran) 4 mg IV Q4H PRN PRN PRN Reason: Nausea Oxycodone HCl (Oxyir) 5 - 10 mg PO Q4H PRN PRN PRN Reason: Pain Score 4-10/10 Last Admin: 09/01/19 08:42 Dose: 5 mg Documented by: Prochlorperazine Edisylate (Compazine Iv) 10 mg IV Q6H PRN PRN PRN Reason: NAUSEA Senna/Docusate Sodium (Senokot-S, Larissa-Colace) 0 tablet PO DAILY PRN PRN Reason: Constipation Last Admin: 09/01/19 06:10 Dose: 2 tablet Documented by: Simethicone (Mylicon) 80 mg PO PCHS PRN PRN Reason: Indigestion/stomach pain Last Admin: 09/01/19 00:30 Dose: 80 mg Documented by: Sodium Chloride () 5 - 15 ml IV UD PRN PRN Reason: SALINE FLUSH Last Admin: 08/31/19 17:41 Dose: 10 ml Documented by: Discharge Diet: No Restrictions Discharge Activity: May not drive while taking narcotic pain medications., May Shower May resume sexual activity in: 6 weeks Weight Bearing Status: Weight bearing as tolerated Call your doctor if your incision/area has: Continuous Slow Oozing, Sudden Increased Bleeding, Increased Pain/ Swelling, Foul Smelling Discharge, Swelling at the incision site Suture Line Care: Avoid Pulling/Pushing, Avoid Pinching/Bending Cleanse incision/area with: Soap & Water Home Medications: Medications to take at Discharge Pnv No.95/Ferrous Fum/Folic AC [ Caplet] 1 ea PO DAILY 04/06/19 Levothyroxine Sodium [Synthroid] 100 mcg PO DAILY 08/29/19 Acetaminophen [Tylenol] 1,000 mg PO Q8H PRN PRN tab 08/31/19 Hydrocortisone 2.5% Crm [Hytone] 1 applic TOPICAL TID PRN PRN #1 tube 08/31/19 Ibuprofen [Motrin] 600 mg PO Q6H PRN PRN tab 08/31/19 Nystatin 1 applicatio TP TID #30 g 08/31/19 Ondansetron HCl [Zofran] 4 mg PO Q8H PRN PRN #10 tab 08/31/19 Oxycodone [Oxyir] 5 - 10 mg PO Q4H PRN PRN 5 Days #20 tab 08/31/19 Senna/Docusate Sodium [Senokot-S] 1 tab PO DAILY PRN #15 tab 08/31/19 Following Prescrptions Were Given to Patient: Hydrocortisone 2.5% Crm [Hytone] 1 applic TOPICAL TID PRN PRN #1 tube PRN Reason: Discomfort Transmission Status: Received by [facility] Nystatin 1 applicatio TP TID #30 g Transmission Status: Received by [facility] Oxycodone [Oxyir] 5 - 10 mg PO Q4H PRN PRN 5 Days #20 tab PRN Reason: Pain Score 4-10/10 Transmission Status: Received by [facility] Senna/Docusate Sodium [Senokot-S] 1 tab PO DAILY PRN #15 tab PRN Reason: Constipation Transmission Status: Received by [facility] Ondansetron HCl [Zofran] 4 mg PO Q8H PRN PRN #10 tab PRN Reason: Nausea Transmission Status: Received by [facility] Please Follow Up With: Niki Coleman MD When: Make appt for incision check in 1-2 weeks. Please Follow Up With: Niki Coleman MD When: Make appt for visit in 6 weeks. Medical Necessity - Tobacco Use Smoking Status: Former smoker Meaningful Use Info Meaningful Use Diagnoses (Choose all that apply): None applicable
--- NOTE | 2019-09-01 11:29 | CASEMGMT ---
Social Work Labor and Delivery Help Me Grow referral submitted via the [facility]'s secure web based referral form. No other services requested or indicated. Refer to prior social work notes this admission for details of interactions and resources provided. -MICHAEL Callejas, PEDIATRIC PHYSICIAN ASSISTANT
--- OUTSIDE RECORDS SUMMARY | 2020-02-02 07:57 | XMS RPT_ITS | CCD ---
:1995 External Reference #:[id number] Author Organization [facility] Care Team Providers Name Role Phone Gil Unavailable Unavailable Hadley Berumen Unavailable Unavailable Premtabi Unavailable Unavailable Qasim, N Unavailable Unavailable BIRO Unavailable Unavailable BIRO Unavailable Unavailable [place] Unavailable Unavailable Segundo Unavailable Unavailable Hadley Berumen Primary Care Provider Allergies Reported Allergen Reaction(s) Severity Date of Onset Location Sulfamethoxazole / Itching, Vomiting 03-12-2019 - [facility] Trimethoprim ([id number]) Sulfamethoxazole / Itching, Itching MP-Kira [facility] Trimethoprim Practice ([id number] ) Medications Medication Name Sig Date Prescriber Location Ethinyl Estradiol / norgestimate 0.25 09-18-2019 Audrey ([facility]) [facility] norgestimate mg-ethinyl estradiol Colleen Audrey ([id number] ) 35 mcg (SPRINTEC) ([facility]) [place] 0.25-35 mg-mcg per tablet Take 1 tablet by mouth once daily. 3 Package 3 09/18/2019 Active Comment: Take 1 tablet by mouth once daily. fluticasone fluticasone (FLONASE) 50 06-05-[address] [facility] mcg/actuation nasal Provider ([id number]) spray USE 2 SPRAYS IN EACH NOSTRIL ONCE DAILY NEEDED FOR NASAL CONGESTION 0 06/05/2019 Active Comment: USE 2 SPRAYS IN EACH NOSTRIL ONCE DAILY NEEDED FOR NASAL CONGESTION levothyroxine levothyroxine 09-08-2019 [facility] (SYNTHROID) 75 mcg Practice (11933) tablet Take 1 tablet by mouth once daily. 30 tablet 2 09/08/2019 Active Levothyroxine Sodium 75 MCG 06-20-2018 Olga CAMPA [facility] Practice Oral Tablet TAKE 1 TABLET DAILY (49063) DIRECTED. Quantity: 30 Refills: Olga Petty DO Start : 20-Jun-2018 Active Comment: Take 1 tablet by mouth once daily. metFORMIN metFORMIN HCl - 500 10-01-2017 [facility] nd MG Oral Tablet TAKE [facility] Alisson hoskins 2 TABLETS DAILY. (08945) Refills: 0 DO Start : 01-Oct-2017 Active NITROFURANTOIN, nitrofurantoin 09-18-2019 - Audrey ([facility]) [facility] MACROCRYSTALS / monohydrate and 09-25-2019 [place] Audrey (74881) Nitrofurantoin, macrocrystal ([facility]) [place] Monohydrate (MACROBID) 100 mg capsule Take 1 capsule by mouth twice daily for 7 days. 14 capsule 0 09/18/2019 09/25/2019 Active Comment: Take 1 capsule by mouth twic e daily for 7 days. Multi +DHA Multi +DHA [facility] [address] 27-0.8-250 MG Oral 27-0.8-250 MG Oral (44 805) Capsule Capsule Refills: 0 DO Active Multi +DHA 27-0.8-250 MG Oral [facility] [address] (03666) Capsule Refills: 0 Active Ccf Provider [place] Drzfgbfw-Sj-Xgt-Fe-FA Dzghudjg-Wz-Ldc-Fe-FA Ccf [facility] ([id number]) ( VITAMIN) tab ( VITAMIN) tab Take 1 tablet by mouth. 0 Active Comment: Take 1 tablet by mouth. Triamcinolone triamcinolone 09-18-2019 - Audrey ([facility]) [place] Cli kaveh (KENALOG) 0.025 % 09-28-[facility] (81449) cream Apply to ([facility]) [place] affected area twice daily for 10 days. 80 g 0 09/18/2019 09/28/2019 Active Comment: Apply to affected area twice daily for 10 days. Problems Active Problems Category Problem Name Status Date Location Administrative/social Encounter for Active 09-30-2017 - [facility] admission pre-employment Hospital (000 00) examination Anxiety disorders Generalized anxiety Active [facility] Family disorder Practice (34643 ) Menstrual disorders Secondary amenorrhea Active [facility] (06178 ) Mood disorders Depressive disorder Active [facility] (06662 ) Other endocrine disorders Polycystic ovarian Active [facility] Family syndrome Practice (56957 ) Other endocrine disorders [facility]ar[facility] [address] ([address]) Other gastrointestinal Functional disorder of Active [facility] disorders intestine [address] ([address]689) Other nutritional; Obesity Active 06-26-2019 - [facility] endocrine; and metabolic (44 195) disorders Other screening for Cancer cervix - Active [facility] suspected conditions (not screening done [address] mental disorders or (23764) infectious disease) Other skin disorders [facility] [address] (30441) Thyroid disorders Acquired hypothyroidism Active [facility] (72378 ) Past or Other Problems Category Problem Name Status Date Location Genitourinary symptoms Bacteriuria Completed 03-23-2019 - [place] [facility] and ill-defined (36946) conditions Other nutritional; H/O: hypothyroidism Completed 03-12-2019 - [facility] endocrine; and (71885) metabolic disorders Other and Urine test Completed 03-12-2019 - [facility] delivery including positive Practice (41580) normal Residual codes; FH: Congenital heart Completed 03-12-2019 - [facility] unclassified disease (25130) NEGATED: Highlighted Disease Completed [facility] and Family row has not Practice (63464 ) occurred!Residual codes; unclassified Screening and history H/O: depression Completed 03-12-2019 - [facility] of mental health and (36517) substance abuse codes Unclassified General finding of [facility] Family height Practice (88760 ) Unclassified Patient encounter [facility] Practice (13744 ) Unclassified Cancer cervix screening [facility] Practice (62712 ) Results Result Name Value Range Unit Interpretation Flag Date Location triage - ed on 2019 Triage - ED Quick Triage: Normal 12-11-2019 [facility] Are You no H ealth (56259) Are You Currently Breastfeedingno Chart Review: CHIEF COMPLAINT ERMIAS EGAN is a Female patient with a chief co mplaint of ear pain (left ear pain started 3 wks ago, went to urgent care had amoxil for 10 days but came back. had green puss coming out and I c ant hear out of it lump by my ear). Triage Date/Time: 11-Dec-2019 14:27 Pain Rating (0-10): 8 = Severe Pain location: ear Vital Signs: Temperature: 97.6F ( 36.4C) taken oral Blood Pressure: 126/78 Mean: Heart Rate: 90 Respiratory Rate: 18 Pulse Oximetry: 97% on room air, no respiratory support. Height: 4 feet 10.00 inches. 147.3 CM Weight: 188.4 pounds. Calculated 85.5 kg. Calculated BMI (kg/m2): 39.405 Calculated BSA (m2) 1.87 [place] Coma Scale: Best Eye Response: (E4) spontaneous Best Motor Response: (M6) obeys commands Best Verbal Response: (V5) oriented Kaveh Score: 15 Allergies: yes Last menstrual period: 16-Nov-2019 Patient has homicidal thoughts: no DENNIS: 4 Symptoms Are POSITIVE For: hearing problems. Symptoms Are Negative For: chills, congestion, cough, dizziness, fe lenin, headache, ear itching, rhinorrhea and sore throat. Risk Screens Suicide Risk Screen In the Past Month: Have you wished you were or wished y ou could go to sleep and not wake up no In the Past Month: Have you had any actual thoughts of killi ng yourself no In Your Lifetime: Have you ever done anything, started to do anything, or prepared to do anything to end your life no Marie Fall Scale Screening Has the patient fallen before (or is the patient in the ED as a result of a fall) has not had a fall Does the patient have an impaired gait does not have impaire d gait Is the patient cognitively impaired not cognitively impaired Interventions: Marie Fall Interventions: LOW INTERVENTIONS: *patient oriented to surroundings and call system, * patient/family falls education completed and documented, *patients fall status communicated during bedside handoff, *whiteboard updated, *mode of toileting discussed with patient, *bed in low position with brakes locked, *call light in reach, * non-skid footwear PAIN Pain Scale Used: JENNA Pain Rating (0-10): 8 = Severe ARRIVAL INFORMATION Mode of Arrival: private vehicle TRAVEL HISTORY Travel History Coronavirus Screening: no exposure or symptoms Past Medical History: Past Medical History Reviewedno Electronic Signatures: Prisca Bonilla) (Signed 11-Dec-2019 14:31) Authored: Triage, Past Medical History Last Updated: 11-Dec-2019 14:31 by Prisca Bonilla (CHANTELLE) risk screen - adult emergency on 2019-12-11 Risk Screen - Preferred Language: Normal 2019 [facility] Adult Emergency Preferred Language: [facility] Preferred Language for Discussing Health Care (patient/desjoaquina nee)Malian (04805) Advanced Directives: Advance Directive/DNRno Family Violence Adult: Abuse Screen: Are you or have you been threatened or abused physically, em otionally, or sexually by anyoneno Learning Assessment (Patient): Learning Assessment (Patient): Patient is Able to be Assessed for Learningyes Factors Influencing Readiness to Learnacuteness of illness Factors that Impact Ability to Learnnone Devices/Methods Used to Communicatenone Learning Preferencesaudio Cultural Considerationsnone Developmental Considerationsnone Shinto Considerationsnone Learning Assessment (Other Learner): Learning Assessment (Other Learner): Other learner availableno Pressure Injury/TB/Substance: Pressure Injury: Pressure Injury Present on Admissionno Do you have a coughno Admission Risk Screen: Significant IndicatorsComplete CAGE: CAGE: Is this an injured patient at a Trauma Center ([facility]/Emiliano/Liz villegas/[place]/Stefan/[place]): no Electronic Signatures: Prisca Bonilla (CHANTELLE) (Signed 11-Dec-2019 14:32) Authored: Preferred Language, Advanced Directives, Family Vi olence Adult, Learning Assessment (Patient), Learning Assessment (Ot her Learner), Pressure Injury/TB/Substance, CAGE Last Updated: 11-Dec-2019 14:32 by Prisca Bonilla (CHANTELLE) provider note - ed v2 on 2019-12-11 Provider Note - Provider Note - ED v2: Normal 0 12-11-2019 [facility] ED v2 Chart Review: [facility] ED NOTES ([id number]) ED NOTES: ====HPI==== Patient is a 24-year-old fem adolfo who presents to the emergency department with a chief complaint of left ear pain. Patient states that her sy mptoms started approximately 3 weeks ago. She states at that time she was t reated for an inner ear infection. She was told that they could not see her eardrum. She states that she was put on amoxicillin for an ear infe ction. She states that her ear pain continues to worsen and she has had green pus from her ear. She states that her ear is tender to touch. She denies any fev er or chills. She states that her hearing is muffled. Character: Severity: 9/10 Exacerbated by: nothing Improved by: nothing ====Review of Systems==== 10 point system review is negative except for th ose specifically mentioned in history of present illness ====Physical Exam==== Constitutional/General: Aler t and oriented x3, well appearing, nontoxic, and in NAD. Head: Normocephalic and atraumatic. Eyes: PERRL, EOMI, conjuncti ve normal, sclera nonicteric, subconjunctival layer is pink. Ears: External auditory canal on the left side is swollen. T M is mildly erythematous Mouth: Oropharynx clear, handling secretions, no trismus, no asymmetry of the posterior oropharynx or uvular edema Neck: Supple, full ROM, non tender to pa lpation in the midline, no stridor, no crepitus, no meningeal signs. Trachea at midline. Respiratory: Lungs clear to auscultation bilaterally, no w heezes, rales, or rhonchi, not in respiratory distress. Cardiovascular: Regular rate, regular rh ythm, no murmurs, gallops, or rubs, 2+ distal pulses. Musculoskeletal: Moves all e xtremities x4, warm and well perfused, no clubbing, cyanosis, or edema, cap refill <3 seconds Integument: Skin warm and dry, no rashes. Lymphatic: No lymphadenopathy noted. Neurologic: GCS 15, no focal deficits, s ymmetric strength 5/5 in the upper and lower extremities bilaterally. Psychiatric: Normal affect. ====ED Course and Medical Decision Making==== See MDM section for review of findings & plan of care. Portions of this note were dictated by kirill snow. An attempt at proof reading was made to minimize errors. Minor errors in transcr iption may be present. Please call if questions.. HISTORY OF PRESENTING ILLNESS ERMIAS is a 24 year old Female and was seen by me at 14:36 for a chief complaint of ear pain (left ear pain started 3 w ks ago, went to urgent care had amoxil for 10 days but came back. had green puss coming out and I cant hear out of it lump by my ear). Triage Information: Most recent Vital Sign Value Date Temp (F): 97.6 12-11-2019 14:27 Temp (C): 36.4 12-11-2019 14:27 Heart Rate (beats/min): 90 12-11-2019 14:27 Respirations (breaths/min): 18 12-11-2019 14:27 SpO2 (%): 97 12-11-2019 14:27 BP Systolic (mm Hg): 126 12-11-2019 14:27 BP Diastolic (mm Hg): 78 12-11-2019 14:27 PAST MEDICAL HISTORY ATTESTATION: I have reviewed and confirm ed nurse's/medic's notes for patient's medications, allergies, medical history, and surgical histor y ALLERGIES/INTOLERANCES: Allergy Allergen: Bactrim Type: Drug Reaction: Itching Allergen: sulfa drugs Type: Drug Category Reaction: Itching HEALTH HISTORY: No documented data. OUTPATIENT MEDICATIONS: Home Medications Review Status for R econciliation: Complete Med Status: Patient Currently Takes Medications Drug Name: amoxicillin 500 mg oral capsule Instructions: 1 cap(s) orally 3 times a day for 10 days Drug Name: EUTHYROX 75 MCG TABLET Instructions: 1 tab(s) orally once a day Drug Name: SPRINTEC 28 TAB 28 DAY Instructions: 1 tab(s) orally once a day//last filled in August Drug Name: Ciprodex 0.3%-0.1% otic suspension Instructions: 4 drop(s) in each affected ear 2 times a day Drug Name: Augmentin 875 mg-125 mg oral tablet Instructions: 1 tab(s) orally every 12 hours SIGNIFICANT EVENTS: No documented data. MULTIFOCAL BUTTON GENERATOR: Is : no Is : no RESULTS/VITAL SIGNS VITAL SIGNS: T PRBP SpO2O2(LPM) %FiO2 Method 11-Dec-2019 14:27:[id number] 97 room air, no respirat ory support MEDICAL DECISION MAKING/ED COURSE MDM/ED COURSE: Patient has evidence of otitis externa. Her tympanic membran e was only partially visualized secondary to swelling of he r external auditory canal and the portion that was visualized appeared erythematous consistent with otitis media. She was on amoxicillin and has not received any treat ment for her otitis externa. She will be discharged home with Augmentin a long with Ciprodex. She is afebrile and nontoxic-appearing. She does r eport that her hearing is muffled. She has been referred to ENT and i nstructed to follow-up if no improvement of her symptoms. CLINICAL IMPRESSION Diagnosis/Annotation: ED Dx Name:Otitis externa of left ear Code:H60.92 Dispostion: discharged Type: home ATTESTATION CRITICAL CARE TIME Is this a critically ill patient: no Electronic Signatures: Sumi Baldwin (PAC) (Signed 11-Dec-2019 15:29) Authored: Provider Note - ED v2 Last Updated: 11-Dec-2019 15:29 by Sumi Baldwin (PAC ) obsolete on 2019-11 OBSOLETE Refill (OBGYWM) Normal 11-23-2019 [facility] ERMIAS EGAN ([id number]) 1995 [facility] Time Provider Department ([id number]) 11/23/19 MARIAJOSE HERRON OBGYWM During your visit today, we recorded the following informati on about you: Tarah Anand LPN 11/24/2019 8:52 AM Addendum Refill request received from pharmacy for levothyroxine 75 mcg. Patient was last seen for 6 week visit 10/14/19 Haylie Urena MD 11/24/2019 12:18 PM Signed Patient should be following with pcp and getting refil ls there at this time. We can give her 1 month if needed. MD Tarah Claros LPN 11/24/2019 4:31 PM Signed Left message to call office Tarah Anand LPN 11/26/2019 9:05 AM Signed Left message to call office Tarah Anand LPN 11/26/2019 4:38 PM Signed [facility] Patient aware that she will need to get further refill from pcp. Allergies As of Date: 11/23/2019 Noted Allergy Reaction BACTRIM (SULFAMETHOXAZOLE-TRIMETH*03/12/2019 9 - Itching 11 - Vomiting Date Reviewed: 10/14/2019 Reviewed by: Giana Biswas Ma - Fully Assessed Reason for Visit: Refill Request [94] Order(s):levothyroxine (SYNTHROID) 75 mcg tabletTake 1 tab let by mouth once daily.Disp: 30 tabletRfl: 2 Prescriptions as of 11/23/2019 Sig: LEVOTHYROXINE 75 MCG TABLET Take 1 tablet by mouth once d* NORGESTIMATE 0.25 MG-ETHINYL * Take 1 tablet by mouth once d * FLUTICASONE PROPIONATE 50 MCG* USE 2 SPRAYS IN EACH NOSTRIL * VITAMIN TABLET Take 1 tablet by mouth. Problem List As Of Date 11/23/2019 Noted Resolved with care elsewhere, antepar*03/12/2019 0 10/14/2019 More... History of hypothyroidism [Z86.39] 03/12/2019 10/14/2019 More... History of depression [Z86.59] 03/12/2019 More... Family history of congenital heart defect [Z82.*03/12/2019 0 10/14/2019 More... GBS bacteriuria [R82.71] 03/23/2019 10/14/2019 Obesity in , antepartum [O99.210] 06/26/20192019 More... Prescriptions ordered this encounter Disp Refills Start End LEVOTHYROXINE 75 MCG TABLET 30 t* 2 11/26/2019 Route: ORAL Sig: Take 1 tablet by mouth once daily. Medications Discontinued During This Encounter Prescriptions - levothyroxine (SYNTHROID) 75 mcg tablet (Discontinued) Take 1 tablet by mouth once daily. Encounter Status:Closed by HAYLIE URENA MD on 11/26/19 progress on 2019-09 PROGRESS HNO ID: [id number] Normal 10-14-2019 [facility] Author: Mariajose Gutierrez ([id number]) Service: ? Author Type: Physician Type: Progress Notes Filed: 10/14/2019 4:48 PM Note Text: VISIT Ermias Egan is a 24 year old year old here for postpa rtum visit. Delivery Summary: C-s ROS/ Recovery: Feeding: Bottle feeding problems: None Menses since delivery: light flow Menstrual pattern prior to : Regular periods [place] since delivery: Resumed Depression: denies symptoms of depression. (Lines 3 AND 4 applicable if either Lines 1 or 2 are positiv e) 1. Over the past 2 weeks have you felt down, depressed, or h opeless? Negative 2. Over the past two weeks, have you felt little interest or pleasure in doing things? Negative 3. Have you had thoughts of harming yourself or others? N/A 4. [place] Depression Scale (EPDS) Total Score: 0 Emotional support: Yes Bowel symptoms: Negative for abdominal discomfort, blood in stools or black stools and change in bowel habits Abdomen: She reports no incisional redness, tenderness, eryt merrill Bladder symptoms: No dysuria, gross hematuria, urinary frequ ency, urinary urgency, or incontinence Other issues: None Last Pap: 2019 normal HPV: N/A PAST MEDICAL HISTORY Diagnosis Date - depression/anxiety - Hypothyroid - PCOS (polycystic ovarian syndrome) PAST SURGICAL HISTORY Procedure Laterality Date - DELIVERY ONLY 08/29/2019 C/S low transverse FAMILY HISTORY Problem Relation Age of Onset - other (pulmonary atresia) Mother - other (vsd) Mother - other (transposition of great arteries) Mother - Thyroid Father - Thyroid Sister - Diabetes Maternal Grandmother - Heart Failure Maternal Grandfather - other (liver sclerosis) Paternal Grandfather - Thyroid Sister - Depression Sister Social History Tobacco Use - Smoking status: Never Smoker - Smokeless tobacco: Never Used Substance Use Topics - Alcohol use: Not Currently - Drug use: Not Currently PHYSICAL EXAMINATION: Ht 4' 10 (1.47m) Wt 187 lb (84.8kg) LMP 10/13/2019 BM I 39.09 kg/(m2). GENERAL: pleasant, female in no apparent distress HEENT: Normocephalic, atraumatic, mucus membranes moist and no lesions NECK: Supple, full range of motion, no adenopathy and thyroi d normal DERMATOLOGY: Normal, without lesions, non-icteric and non-hi rsute BREAST: soft, non-tender, symmetric, no dominant mass, johanna l nipple-areolar complex, no lymphadenopathy and no nipple dis charge CHEST: Normal inspiratory effort ABDOMEN: soft, non-tender and no masses. INCISION: No incisi onal redness, swelling, or drainage PELVIC: external genitalia normal, normal Bartholin's glands , urethra, Boyle's glands, no vulvar lesions, no cervical lesions, good vaginal support, physiologic discharge present, normal appearing per ineal body and perianal region BIMANUAL: uterus normal size, shape and consistency, no adne xal masses and non-tender NEURO: alert and oriented x3,exam grossly non-focal EXTREMITIES: normal ASSESSMENT AND PLAN: 24 year old status post CS with normal co urse. Contraception plan: Oral contraceptives Follow up: RTC for annual exams and PRN Mariajose Herron MD urine culture on 08-09-28 Bacteria Sp. Request/Comment: - Specimen received in preservative Critically 09-18-2019 [place] identified Cx Nom abnormal Cl inic (U) Culture Result - <10,000 CFU /ml Streptococcus agalactiae (Group B streptococcus) --> ABNORMAL ALERT No further workup --> ABNORMAL ALERT <10,000 CFU/ml Normal urogenital manan [place] ([id number]) Comment: Performed By: #### CBC, HIV1 2C, RUBIGG, SYPHTX, AHCV, HBSAG #### [facility] [address] [place] [id number] progress on 2019-08 PROGRESS HNO ID: [id number] Normal 09-18-2019 [place] Author: Audrey Anne) [place] [facility] Service: ? [place] Author Type: Nurse Practitioner ([id number]) Type: Progress Notes Filed: 09/18/2019 4:52 PM Note Text: Ermias Egan is a 24 year old female who presents for problem visit dysuria for 3 days. HPI: pt states that she is having burning with urination for the past 3 days. Having some light spotting from delivery still, just n otices when wiping. She has notice a strong odor that started about 4-5 days ago. Also is having some mild breast pain in the right upper breast. P t plans to stop when infant is 1 month old. PAST MEDICAL HISTORY Diagnosis Date - depression/anxiety - Hypothyroid - PCOS (polycystic ovarian syndrome) PAST SURGICAL HISTORY Procedure Laterality Date - DELIVERY ONLY 08/29/2019 C/S low transverse FAMILY HISTORY Problem Relation Age of Onset - other (pulmonary atresia) Mother - other (vsd) Mother - other (transposition of great arteries) Mother - Thyroid Father - Thyroid Sister - Diabetes Maternal Grandmother - Heart Failure Maternal Grandfather - other (liver sclerosis) Paternal Grandfather - Thyroid Sister - Depression Sister Social History Tobacco Use - Smoking status: Never Smoker - Smokeless tobacco: Never Used Substance Use Topics - Alcohol use: Not Currently - Drug use: Not Currently Current Outpatient Medications Medication Sig - levothyroxine (SYNTHROID) 75 mcg tablet Take 1 tablet by m outh once daily. - fluticasone (FLONASE) 50 mcg/actuation nasal spray USE 2 S PRAYS IN EACH NOSTRIL ONCE DAILY NEEDED FOR NASAL CONGESTION - Zgrrjarw-Nr-Hbi-Fe-FA ( VITAMIN) tab Take 1 tablet by mouth. No current facility-administered medications for this visit. Allergies As of Date: 09/18/2019 Allergen Noted Reaction BACTRIM [SULFAMETHOXAZOLE-TRIMETH*03/12/2019 Itching and Vom iting Fully Assessed 09/07/2019 REVIEW OF SYSTEMS Abdomen: No bloating, early satiety, indigestion, or increas ed flatulence. No abdominal pain, nausea, vomiting, diarrhea, or constipati on. Bladder: +dysuria. Breast: pain in the right breast. Expanded ROS: N/A Allergies and current medication updated:Yes EXAM: LMP 12/03/2018 GENERAL: pleasant, female in no apparent distress HEENT: Normocephalic, atraumatic, mucus membranes moist and no lesions BREAST: soft, symmetric, no dominant mass, normal nipple-are olar complex, no lymphadenopathy, no nipple discharge and mild tenderness in the right breast upper quadrant possible clogged milk duct CHEST: Normal inspiratory effort PELVIC: external genitalia normal, normal Bartholin's glands , urethra, Boyle's glands, no vulvar lesions, no cervical lesions, good vaginal support, physiologic discharge present, normal appearing per ineal body and perianal region BIMANUAL: deferred NEURO: alert and oriented x3,exam grossly non-focal EXTREMITIES: normal ASSESSMENT/PLAN: 1. Dysuria - ICD9: 788.1, ICD10: R30.0 (primary diagnosis) acute - UA positive for tamara esterase, hematuria and proteinuria - Send urine for culture - Begin treatment with Macrobid 100 mg BID for 7 days - Patient education for prevention given - UA DIP, URINE (POC) - HCG QUAL UR B/O - URINE CULTURE 2. Vaginal odor - ICD9: 625.8, ICD10: N89.8 - BACT/CRISTHIAN VAG GRAM STAIN 3. Oral contraception initial prescription - ICD9: V25.01, I CD10: Z30.011 - RX for Sprintec given today. - discussed with patient on how to take OCP's. - counseled on benefits, risks and possible severe side effe cts of OCP's. - discussed need to use Condoms to help to prevent STD's inc luding HIV etc. 4. Mammary disorder - ICD9: 611.9, ICD10: N64.9 - Possible clogged milk duct- recommended massage and warm c ompresses to the breast Audrey Murillo APRN.TISH wymann on 2019-09-18 CNPN Telephone (OBGYWM) Normal 09-18-2019 [place] [facility] ERMIAS EGAN ([id number]) 1995 [facility] Date Time Provider Department ([id number]) 09/18/19 MARIJAOSE HERRON OBGYWM During your visit today, we recorded the following informati on about you: Mariajose Alcantara Pss 09/18/2019 2:40 PM Signed Patient would like to be seen for a UTI/rash on stomac h. Please call patient On Wait list today Adriana Ocasio LPN 09/18/2019 2:45 PM Signed Spoke with pt and appt scheduled. Adriana Ocasio LPN Allergies As of Date: 09/18/2019 Noted Allergy Reaction BACTRIM (SULFAMETHOXAZOLE-TRIMETH*03/12/2019 9 - Itching 11 - Vomiting Date Reviewed: 09/07/2019 Reviewed by: Eliza Loomis - Fully Assessed Reason for Visit: uti/urgent care ? [Other] Prescriptions as of 09/18/2019 Sig: LEVOTHYROXINE 75 MCG TABLET Take 1 tablet by mouth once d* FLUTICASONE PROPIONATE 50 MCG* USE 2 SPRAYS IN EACH NOSTRIL * VITAMIN TABLET Take 1 tablet by mouth. Problem List As Of Date 09/18/2019 Noted Resolved with care elsewhere, antepar*03/12/2019 More... History of hypothyroidism [Z86.39] 03/12/2019 More... History of depression [Z86.59] 03/12/2019 More... Family history of congenital heart defect [Z82.*03/12/2019 More... GBS bacteriuria [R82.71] 03/23/2019 Obesity in , antepartum [O99.210] 06/26/2019 More... Encounter Status:Closed by ADRIANA OCASIO LPN on 09/18/19 cnov on 2019-09-18 CNOV Office Visit (OBGYWM) Normal 09-18-[address] [place] [address] Rocco LONGERMIAS Fonseca ([id number]) 1995 [facility] Time Provider Department ([id number]) 09/18/19 4:15 PM AUDREY MURILLO (TISH) OBGYWM During your visit today, we recorded the following informati on about you: Blood pressure Weight 110/70 84.2 kg Audrey Murillo APRN.CNP 09/18/2019 4:52 PM Signed Ermias Egan is a 24 year old female who presents for problem visit dysuria for 3 days. HPI: pt states that she is having burning with u rination for the past 3 days. Having some light spotting from delivery still, just notices when wiping. She has notice a strong odor that started about 4-5 days ago. Also is having some mild breast pain in the righ t upper breast. Pt plans to stop when infant is 1 month old. PAST MEDICAL HISTORY Diagnosis Date - depression/anxiety - Hypothyroid - PCOS (polycystic ovarian syndrome) PAST SURGICAL HISTORY Procedure Laterality Date - DELIVERY ONLY 08/29/2019 C/S low transverse FAMILY HISTORY Problem Relation Age of Onset - other (pulmonary atresia) Mother - other (vsd) Mother - other (transposition of great arteries) Mother - Thyroid Father - Thyroid Sister - Diabetes Maternal Grandmother - Heart Failure Maternal Grandfather - other (liver sclerosis) Paternal Grandfather - Thyroid Sister - Depression Sister Social History Tobacco Use - Smoking status: Never Smoker - Smokeless tobacco: Never Used Substance Use Topics - Alcohol use: Not Currently - Drug use: Not Currently Current Outpatient Medications Medication Sig - levothyroxine (SYNTHROID) 75 mcg tablet Take 1 table t by mouth once daily. - fluticasone (FLONASE) 50 mcg/actuation nasal spray USE 2 S PRAYS IN EACH NOSTRIL ONCE DAILY NEEDED FOR NASAL CONGESTION - Mqtjtlxa-Zs-Jza-F e-FA ( VITAMIN) tab Take 1 tablet by mouth. No current facility-administered medications for this visit. Allergies As of Date: 09/18/2019 Allergen Noted Reaction BACTRIM [SULFAMETHOXAZOLE-TRIMETH*03/12/2019 Itching and Vom iting Fully Assessed 09/07/2019 REVIEW OF SYSTEMS Abdomen: No bloating, early satiety, indigestion , or increased flatulence. No abdominal pain, nausea, vomiting, diarrhea, or constipation. Bladder: +dysuria. Breast: pain in the right breast. Expanded ROS: N/A Allergies and current medication updated:Yes EXAM: LMP 12/03/2018 GENERAL: pleasant, female in no apparent distress HEENT: Normocephalic, atraumatic, mucus membranes moist and no lesions BREAST: soft, symmetric, no dominant mass, normal nipp le-areolar complex, no lymphadenopathy, no nipple discharge and mild tenderne ss in the right breast upper quadrant possible clogged milk duct CHEST: Normal inspiratory effort PELVIC: external genitalia normal, johanna l Bartholin's glands, urethra, Boyle's glands, no vulvar lesions, no cervical lesions, good vaginal support, physiologic discharge present, normal appearing perineal bod y and perianal region BIMANUAL: deferred NEURO: alert and oriented x3,exam grossly non-focal EXTREMITIES: normal ASSESSMENT/PLAN: 1. Dysuria - ICD9: 788.1, ICD10: R30.0 (primary diagnosis) acute - UA positive for tamara esterase, hematuria and proteinuria - Send urine for culture - Begin treatment with Macrobid 100 mg BID for 7 days - Patient education for prevention given - UA DIP, URINE (POC) - HCG QUAL UR B/O - URINE CULTURE 2. Vaginal odor - ICD9: 625.8, ICD10: N89.8 - BACT/CRISTHIAN VAG GRAM STAIN 3. Oral contraception initial prescription - ICD9: V25.01, I CD10: Z30.011 - RX for Sprintec given today. - discussed with patient on how to take OCP's. - counseled on benefits, risks and possible severe side effe cts of OCP's. - discussed need to use Condoms to help to prevent STD's i ncluding HIV etc. 4. Mammary disorder - ICD9: 611.9, ICD10: N64.9 - Possible clogged milk duct- recommended massage and warm compresses to the breast Audrey Murillo APRN.SENIOR LOAN PROCESSOR Referring Provider: SELF [200] Allergies As of Date: 09/18/2019 Noted Allergy Reaction BACTRIM (SULFAMETHOXAZOLE-TRIMETH*03/12/2019 9 - Itching 11 - Vomiting Date Reviewed: 09/18/2019 Reviewed by: Ligia Barry - Fully Assessed Reason for Visit: Breast Problem [16] Urinary Problem [252] Primary Visit Diagnosis:Dysuria [R30.0] Other Visit Diagnoses:Vaginal odor [N89.8] Oral contraception initial prescription [Z30.011] Mammary disorder [N64.9] Order(s):UA DIP, URINE (POC) [[id number]] Order #: [id number] UA DIP, URINE (POC) [] Order #: [id number]. #:[id number] HCG QUAL UR B/O [[id number]] Order #: [id number] URINE CULTURE [SQURCUL] Order #: [id number] norgestimate 0.25 mg-ethinyl estradiol 35 mcg (SPRINTEC) 0.2 5-35 mg-mcg per tabletTake 1 tablet by mouth once daily.Disp: 3 PackageRfl: 3 nitrofurantoin monohydrate and macrocrystal (MACROBID) 100 m g capsuleTake 1 capsule by mouth twice daily for 7 days.Disp: 14 capsuleRfl: 0 triamcinolone (KENALOG) 0.025 % creamApply to affected area twice daily for 10 days.Disp: 80 gRfl: 0 BACT/CRISTHIAN VAG GRAM STAIN [SQBVCNSM] Order #: [id number] F UTURE Prescriptions as of 09/18/2019 Sig: LEVOTHYROXINE 75 MCG TABLET Take 1 tablet by mouth once d* VITAMIN TABLET Take 1 tablet by mouth. NORGESTIMATE 0.25 MG-ETHINYL * Take 1 tablet by mouth once d * NITROFURANTOIN MONOHYDRATE AND * Take 1 capsule by mouth twi ce* TRIAMCINOLONE ACETONIDE 0.025* Apply to affected area twice * FLUTICASONE PROPIONATE 50 MCG* USE 2 SPRAYS IN EACH NOSTRIL * Problem List As Of Date 09/18/2019 Noted Resolved with care elsewhere, antepar*03/12/2019 More... History of hypothyroidism [Z86.39] 03/12/2019 More... History of depression [Z86.59] 03/12/2019 More... Family history of congenital heart defect [Z82.*03/12/2019 More... GBS bacteriuria [R82.71] 03/23/2019 Obesity in , antepartum [O99.210] 06/26/2019 More... Prescriptions ordered this encounter Disp Refills Start End NORGESTIMATE 0.25 MG-ETHINYL ESTRADI* 3 Pa* 3 09/18/2019 Route: ORAL Sig: Take 1 tablet by mouth once daily. NITROFURANTOIN MONOHYDRATE AND MACROCR* 14 c* 0 09/18/2019 0 09/25/2019 Route: ORAL Sig: Take 1 capsule by mouth twice daily for 7 days. TRIAMCINOLONE ACETONIDE 0.025 % TOPI* 80 g 0 09/18/2019 06/0 11/2019 Route: TOPICAL Sig: Apply to affected area twice daily for 10 days. Encounter Status:Closed by AUDREY MURILLO on 09/18/19 bact/cand vag grm st on 2019-09-18 Bact/Cand Vag Grm Sp. Request/Comment: - Swab Norm [place]18[place] [facility] [id number] Smear Result - BACTERIAL VAG INOSIS RESULT: Stain results indicate mixed morphotypes consistent with transition from normal vaginal manan. No Yeast observed Few Polymorphonuclear leukocytes Moderate Epithelial cells Comment: Performed By: #### CBC, HIV1 2C, RUBIGG, SYPHTX, AHCV, HBSAG #### [facility] [address] [place], [place] [address] cnpn on 2019-09-09 CNPN Telephone (OBGYWM) Normal 09-09-2019 [place] [facility] ERMIAS EGAN ([id number]) 1995 [facility] Date Time Provider Department ([id number]) 09/09/19 MARIAJOSE HERRON OBGYWMeliton During your visit today, we recorded the following informati on about you: Muriel Queen RN 09/09/2019 4:08 PM Signed C/S on 09/01/19. Seen on 09/07/19 for inci mathieu check. Patient calling today with lower left sided abdominal pain below c/s incisi on. Pain started an hour ago. Pain rate of 9 out of 10. Took 600mg of Ibuprofen. Pain rate of 7 now. Intermittent cramping. Patie nt had unprotected intercourse last night. Did a 30 minute fast walking workout on the treadmill and almost fe ll. Unsure if she pulled something. Nurse stressed that liz berry had major surgery and should not overdo her activity. Bleeding is minimal. Please advise. Muriel Herron MD 09/09/2019 4:42 PM Signed She should not have intercou rse for at least 4 weeks after a c/s and should not do any type of high impact activity, including walking at a fast pace for 6 weeks after abdominal surgery. Doing so will increase her ri sk of complications and hernias. I would recommend heat and ice, take 2 tylenol to supplement the motrin and not stress the incision. MD Dina Zhang RN 09/09/2019 4:50 PM Signed Patient notified. Dina Cho RN Allergies As of Date: 09/09/2019 Noted Allergy Reaction BACTRIM (SULFAMETHOXAZOLE-TRIMETH*03/12/2019 9 - Itching 11 - Vomiting Date Reviewed: 09/07/2019 Reviewed by: Eliza Loomis - Fully Assessed Reason for Visit: Post C/S abdominal pain [Other] Prescriptions as of 09/09/2019 Sig: LEVOTHYROXINE 75 MCG TABLET Take 1 tablet by mouth once d* FLUTICASONE PROPIONATE 50 MCG* USE 2 SPRAYS IN EACH NOSTRIL * VITAMIN TABLET Take 1 tablet by mouth. Problem List As Of Date 09/09/2019 Noted Resolved with care elsewhere, antepar*03/12/2019 More... History of hypothyroidism [Z86.39] 03/12/2019 More... History of depression [Z86.59] 03/12/2019 More... Family history of congenital heart defect [Z82.*03/12/2019 More... GBS bacteriuria [R82.71] 03/23/2019 Obesity in , antepartum [O99.210] 06/26/2019 More... Encounter Status:Closed by DINA CHO RN on 09/09/19 tsh on 2019-09-07 TSH Qn 0.836 0.270-4.200 uU/mL Normal 09-07-2019 [facility] ([id number]) Comment: Result Comment: If the patie nt is , TSH reference range varies by gestational period: First Trimester (weeks 9-12) : 0.180-2.990 mcIU/mL Second Trimester: 0.110-3.98 0 mcIU/mL Third Trimester: 0.480-4.710 mcIU/mL Yosi Haskins, et al. A Practica l Approach for the Verifications and Determination of Site- and Trimester-Specific Reference Intervals for Thyroid Function tests in . Thyroid, 2019:29:3:412-420. Mateo Hall, et al. 2017 Guide lines of the [place] Thyroid Association for the Diagnosis and Management of Thyroid Disease during and the . Thyroid, 2017:27:3:315-389. Performed By: #### CBC, HIV1 2C, RUBIGG, SYPHTX, AHCV, HBSAG #### [facility] [address] [place], [place] [address] progress on 2019-08 PROGRESS HNO ID: [id number] Normal 09-07-2019 [facility] Author: Mariajose Gutierrez ([id number]) Service: ? Author Type: Physician Type: Progress Notes Filed: 09/07/2019 3:53 PM Note Text: EARLY VISIT Ermias Egan is a 24 year old here for 1 week postpart um visit. Delivery Summary: c-s ROS: General: Denies any fever or chills Hypertension Screening: ? Headache? No. ? Visual Changes? No ? Epigastric Pain? No ? Increased Swelling? No ? Taking any BP medications at home? No ? If applicable, monitoring BP at home? (If Yes, include res ults) NA Mood: normal Depression: denies symptoms of depression. (Lines 3 AND 4 applicable if either Lines 1 or 2 are positiv e) 1. Over the past 2 weeks have you felt down, depressed, or h opeless? Negative 2. Over the past two weeks, have you felt little interest or pleasure in doing things? Negative 3. Have you had thoughts of harming yourself or others? N/A 4. [place] Depression Scale (EPDS) Total Score: 0 Feeding: Breast feeding problems: None Bladder: No dysuria, gross hematuria, urinary frequency, uri nary urgency, or incontinence Bowel symptoms: Negative for abdominal discomfort, blood in stools or black stools and change in bowel habits Abdomen: She reports no incisional redness, tenderness, eryt merrill Bleeding: light flow Bottom and Perineum: No issues Sleep: no sleep concerns, feels rested [place] since delivery: Not resumed Emotional support: Yes Exercise: N/A Other issues: None PHYSICAL EXAMINATION: BP 126/80 Pulse 64 Resp 16 Wt 191 lb (86.6 kg) LMP 0 12/03/2018 BMI 39.24 kg/m? General: pleasant,female in no apparent distress, AANDO x 3. Skin warm and intact. Breast: Deferred Abdomen: Deferred /Incision: No incisional redness, swelling , or drainage Pelvic: Deferred Bimanual: Deferred ASSESSMENT AND PLAN: 1. 24 year old status post CS with normal course. 2. Contraception plan: Oral contraceptives . Reinforced 6-we ek pelvic rest. Encouraged condom usage should patient deviate. 3. Education: resources provided - see MA/RN note Check TSH so we can adjust syntrhoid ok to stop nystatin cream Follow up: Return to Clinic for 6 week visit and as needed Mariajose Herron MD cnpn on 2019-09-07 CNPN Telephone (OBGYWM) Normal 09-07-2019 [facility] JULISAERMIAS ([id number]) 1995 [facility] Date Time Provider Department ([id number]) 09/07/19 RICHIE MONROE OBDENISE During your visit today, we recorded the following informati on about you: Muriel Queen RN 09/07/2019 12:06 PM Signed Patient had a c/s on 08/29/19. States she passed x2 golf ball sized blood clots. Bleeding was a little heavie r yesterday. Today bleeding is light. Pushed on her stomach and it felt hard. Discussed that she could be feeling the top of her uterus. Scheduled for a incision check tomorrow. Good appeti te and overall doing well. Reassurance given. Please advise. Muriel Coleman MD 09/07/2019 12:37 PM Signed So long as no continued heavy bleeding or large clots she ca n wait until tomorrow to be seen. Muriel Queen RN 09/07/2019 2:20 PM Signed Called patient. She stated she spoke with dorothy hall and made her incision check appointment for this afternoon because she [facility]. Muriel Queen RN Allergies As of Date: 09/07/2019 Noted Allergy Reaction BACTRIM (SULFAMETHOXAZOLE-TRIMETH*03/12/2019 9 - Itching 11 - Vomiting Date Reviewed: 08/24/2019 Reviewed by: Tarah Anand LPN - Fully Assessed Reason for Visit: PP question [Other] Prescriptions as of 09/07/2019 Sig: BLOOD PRESSURE MONITOR KIT 1 Each once daily. FLUTICASONE PROPIONATE 50 MCG* USE 2 SPRAYS IN EACH NOSTRIL * BREAST PUMP Use as directed Double elect* LEVOTHYROXINE 100 MCG TABLET Take 1 tablet by mouth once d* VITAMIN TABLET Take 1 tablet by mouth. Problem List As Of Date 09/07/2019 Noted Resolved with care elsewhere, antepar*03/12/2019 More... History of hypothyroidism [Z86.39] 03/12/2019 More... History of depression [Z86.59] 03/12/2019 More... Family history of congenital heart defect [Z82.*03/12/2019 More... GBS bacteriuria [R82.71] 03/23/2019 Obesity in , antepartum [O99.210] 06/26/2019 More... Encounter Status:Closed by TARAH ANAND LPN on 09/07/19 progress on 2019-08 PROGRESS HNO ID: [id number] Normal 09-01-2019 [facility] Author: Adriana Ocasio LPN ([id number]) Service: ? Author Type: ? Type: Progress Notes Filed: 09/01/2019 11:44 AM Note Text: Pt delivered via C/S at [facility] on 08/29/[address] Ontiveros and Genna AGUIRRE. See OB Outcome note. Adriana Ocasio LPN slaboratory other o n 2019-08-29 sLaboratory Other The document you are Normal 0 08-29-2019 [place] ([id number]) trying to view is stored as a scanned image and cannot be viewed with the Pll[employer]it Document Viewer. tishn on 2019-08-13 CNPN Telephone (WOOB) Normal 08-13-2019 [facility] ERMIAS EGAN ([id number]) 1995 [facility] Date Time Provider Department ([id number]) 08/13/19 ROLAND PERKINS During your visit today, we recorded the following informati on about you: Muriel Queen RN 08/13/2019 12:59 PM Signed [facility] states [facility] will not pay for a BP cuff without a dx of Hypertension. Is this dx appropriate for patient? Their most expensive B P cuff is $49.99. Unsure of cost of the least expensive. Please ad vise regarding dx. Thank you. Muriel Perkins MD 08/13/2019 1:20 PM Signed No she does not have hyperte nsion. Ok to not use blood pressure cuff at home at this time given her labs were are normal yesterday. To have appointment next week. Will check BP at that time. Adriana Ocasio LPN 08/13/2019 2:01 PM Signed Pt notified and voiced understanding. [place]ns s appt for next week. Adriana Ocasio LPN Allergies As of Date: 08/13/2019 Noted Allergy Reaction BACTRIM (SULFAMETHOXAZOLE-TRIMETH*03/12/2019 9 - Itching 11 - Vomiting Date Reviewed: 08/12/2019 Reviewed by: Roland Perkins - Fully Assessed Reason for Visit: Pharmacy question [Other] Prescriptions as of 08/13/2019 Sig: BLOOD PRESSURE MONITOR KIT 1 Each once daily. FLUTICASONE PROPIONATE 50 MCG* USE 2 SPRAYS IN EACH NOSTRIL * BREAST PUMP Use as directed Double elect* LEVOTHYROXINE 100 MCG TABLET Take 1 tablet by mouth once d* VITAMIN TABLET Take 1 tablet by mouth. Problem List As Of Date 08/13/2019 Noted Resolved with care elsewhere, antepar*03/12/2019 More... History of hypothyroidism [Z86.39] 03/12/2019 More... History of depression [Z86.59] 03/12/2019 More... Family history of congenital heart defect [Z82.*03/12/2019 More... GBS bacteriuria [R82.71] 03/23/2019 Obesity in , antepartum [O99.210] 06/26/2019 More... Encounter Status:Closed by ADRIANA OCASIO LPN on 08/13/19 uric acid on 2019-0 08-11 Urate [Mass/Vol] 7.4 2.5-6.6 mg/dL High 08-12-[address] [facility] ([id number]) protein/creatinine ratio on 2019-08-12 Creatinine,Urine,Ran 203.6 20-300 mg/dL Normal 0 [facility] ([id number]) Comment: Performed By: #### CBC, HIV1 2C, RUBIGG, SYPHTX, AHCV, HBSAG #### [facility] [address] [place], [place] [address] Protein (U) [Mass/Vol] 41 0-20 mg/dL High 020 [facility] ([id number]) Comment: Performed By: #### CBC, HIV1 2C, RUBIGG, SYPHTX, AHCV, HBSAG #### [facility] [address] [place], [place] [address] Protein/Creatinine Ratio 0.2 <0.2 High 08-11 [facility] ([id number]) Comment: Performed By: #### CBC, HIV1 2C, RUBIGG, SYPHTX, AHCV, HBSAG #### [facility] [address] [place], [place] [address] progress on 2019-07 PROGRESS HNO ID: [id number] Normal 08-12-2019 [facility] Author: Jesse Farfan ([id number]) Service: ? Author Type: Physician Type: Progress Notes Filed: 08/12/2019 3:59 PM Note Text: Please see ultrasound report for details of this visit. Jesse Farfan M.D. creatinine on 08-11 Creatinine [Mass/Vol] >60 Normal 08-12-19 20 [facility] ([id number]) Comment: Result Comment: eGFR (Estima temitope GFR) Units of measure: mL/min/1.73 meters squared eGFR is derived from the ree xpressed MDRD Study equation using the following parameters: serum creatinine, age, gender and race. The creatinine assay has been calibrated to be traceable to IDMS. An eGFR <60 mL/min/1.73m2 fo r >3 months is consistent with chronic kidney disease. Refer to KDOQI guidelines for clinical interpretation. In patients with unstable re nal function, e.g. those with acute kidney injury, the eGFR may not accurately reflect actual GFR. Creatinine [Mass/Vol] 0.73 0.58-0.96 mg/dL Normal 08-12-19 [facility] ([id number]) cbc on 2019-08-12 Absolute nRBC <0.01 <0.01 Normal 08-12-2019 [facility] ([id number]) Erythrocyte distribution 14.0 11.5-15.0 % Normal 08-11 [facility] width (RBC) [Ratio] [place] ([id number]) Hematocrit (Bld) [Volume 39.2 36.0-46.0 % Normal 08-11 [facility] fraction] [place] ([id number]) Hemoglobin (Bld) 13.4 11.5-15.5 g/dL Normal 08-12-2019 [facility] [Mass/Vol] [place] ([id number]) MCH (RBC) [Entitic mass] 30.0 26.0-34.0 pG Normal 08-11 [facility] ([id number]) MCHC (RBC) [Mass/Vol] 34.2 30.5-36.0 g/dL Normal 08-12-19 20 [facility] ([id number]) MCV (RBC) [Entitic vol] 87.9 80.0-100.0 fL Normal 08-11 [facility] (45052) Platelet mean volume 10.9 9.0-12.[address] [facility] (Bld) [Entitic vol] [place] ([id number]) Platelets (Bld) [#/Vol] 270 150-400 k/uL Normal 2019 [facility] ([id number]) RBC (Bld) [#/Vol] 4.46 3.90-5.20 m/uL Normal 08-12-2019 C [facility] ([id number]) WBC (Bld) [#/Vol] 12.03 3.70-11.00 k/uL High 08-12-2019 [facility] ([id number]) ast on 2019-08-12 AST [Catalytic activity/Vol] 16 13-35 U/L Normal 0 08-12-2019 [facility] ([id number]) alt on 2019-08-12 ALT [Catalytic activity/Vol] 13 7-38 U/L Normal 0 08-12-2019 [facility] ([id number]) cnpn on 2019-07-21 CNPN Telephone (WOOB) Normal 07-21-2019 [facility] ERMIAS EGAN ([id number]) 1995 [facility] Date Time Provider Department () 07/21/19 RICHIE MONROE During your visit today, we recorded the following informati on about you: Muriel Queen RN 07/21/2019 2:34 PM Signed 32w6d Patient calling with c/o skin irritation. Stretch alexys s below her abdomen is itchy, arias, and getting puffY'. Not applying any lotion to the area. Began over the past week. Feels it may be irritation from her mate rnity pants rubbing. Please advise on recommendations. Discu ssed coconut oil and allowing her skin to breathe whenever possible. Muriel Coleman MD 07/21/2019 2:43 PM Signed Yes try oatmeal lotion or coconut oil- if a rash or severe i tching may try Benadryl Dina Cho RN 07/21/2019 2:45 PM Signed Patient notified. Dina Cho RN Allergies As of Date: 07/21/2019 Noted Allergy Reaction BACTRIM (SULFAMETHOXAZOLE-TRIMETH*03/12/2019 9 - Itching 11 - Vomiting Date Reviewed: 07/08/2019 Reviewed by: Tiffanie Day - Fully Assessed Reason for Visit: OB skin irritation [Other] Prescriptions as of 07/21/2019 Sig: FLUTICASONE PROPIONATE 50 MCG* USE 2 SPRAYS IN EACH NOSTRIL * BREAST PUMP Use as directed Double elect* LEVOTHYROXINE 100 MCG TABLET Take 1 tablet by mouth once d* VITAMIN TABLET Take 1 tablet by mouth. Problem List As Of Date 07/21/2019 Noted Resolved with care elsewhere, antepar*03/12/2019 More... History of hypothyroidism [Z86.39] 03/12/2019 More... History of depression [Z86.59] 03/12/2019 More... Family history of congenital heart defect [Z82.*03/12/2019 More... GBS bacteriuria [R82.71] 03/23/2019 Obesity in , antepartum [O99.210] 06/26/2019 More... Encounter Status:Closed by DINA CHO RN on 07/21/19 progress on 2019-06 PROGRESS HNO ID: [id number] Normal 07-08-2019 [place] Author: Ligia Mcmahon) [facility] Service: ? [place] Author Type: Automation And Controls Manager ([id number]) Type: Progress Notes Filed: 07/08/2019 3:34 PM Note Text: COVID-19 VIRUS IN In terms of risk to , there is no evidence of verti wilmer transmission of the virus to your baby if you get infected ( which means no evidence for spread to your unborn baby while still in your womb), however data is limited to less than 50 pregnancies. The virus appea rs to have similar course in as non- individuals, and women do not appear to be at increased risk for severe disea se, but there is limited data. There is no information on COVID-19 in the first trimester. Other general advice is to practice good hand hygiene at all times and social distancing when not at work as much as possible. At t his point women are not being recommended to quarantine thems elves if healthy and without known exposure to COVID-19 virus. ? Remember that the best thing you can do is to take precaut ions to protect yourself, your family, and your community (this info rmation is from the [facility] web page): ? Wash hands often with soap and water for at least 20 secon ds; dry hands with a clean towel or air dry hands. ? Use alcohol-based hand product development worker when soap and water are u navailable. ? Cover your mouth with a tissue or sleeve when sneezing or coughing. ? Avoid touching your eyes, nose, or mouth with unwashed adhikari ds. ? Stay home when you are sick. ? Avoid contact with people who are sick. ? Clean ?high-touch? surfaces daily. These include counters, tabletops, doorknobs, light switches, bathroom fixtures, toilets, phone s, keyboards, desks, and tablets. If you are experiencing any symptoms of respiratory illness including fever, cough and/or shortness of breath, please call our off ice. We ask that you do not come to any [facility] facility withou t calling our office or speaking to a provider using a virtual visit using [facility] [employer]? Online. You will be evaluated to determ ine if you require being seen in person or if you meet CDC guidelines f or testing for COVID-19 based on symptoms, travel and exposures. If you preston t criteria for testing, your provider will advise how to proceed with lindsay hunter. In terms of visitors on our labor and delivery units, we olman fong had protocols in place to limit visitation by people with influe nza-like illnesses or respiratory symptoms unless they are the design ated support person. In addition, throughout [facility], the following visitation policy is in effect: ? Individuals who are sick, have a fever or a confirmed case of COVID-19 should not visit or accompany patients. ? Patients may only 1 person with them at any time in the spital. ? Visitors must be age 16+. ? Visitors can speak with a caregiver about exceptions and s pecial circumstances. ? No visitors are allowed from -, unless accompanying a newly-admitted patient. ? Visitors must wash their hands, or use hand product development worker, bef ore and after leaving rooms and hospital buildings. Additional information can be found on the CDC and [facility] web sites: https://www.cdc.gov/coronavirus/2019-nCoV/index.html https://[facility]/coronavirus progress on 2019-06 PROGRESS HNO ID: [id number] Normal 06-22-2019 [facility] Author: Catie Morgan Ma [place] ([id number]) Service: ? Author Type: ? Type: Progress Notes Filed: 06/26/2019 6:34 PM Note Text: Patient identified by name and date of . Ermias Egan presents today for a vaccination of Tdap. Patient denies an allergy to latex: yes Patient denies a severe (life-threatening) allergy to a prev ious dose of Tdap, DTP, DTaP, DT or Td vaccine. Yes Patient denies history of epilepsy or neurological problems: Yes Patient is afebrile and denies being moderately or severely ill: Yes Patient denies history of Guillain-Honaker Syndrome (a severe paralytic illness): Yes Tdap Adacel injection was given without incident. See immunizations for details of immunizations administered today. VIS sheet provided: Yes Provider Tiffanie Day CNM was present in office at time of injection. Catie Morgan Ma cbc and differential on 2019-06-08 Abs Baso <0.03 <0.11 Normal 06-08-2019 [facility] ([id number]) Comment: Performed By: #### CBC, HIV1 2C, RUBIGG, SYPHTX, AHCV, HBSAG #### [facility] [address] [place], [place] [address] Abs Vance 0.53 <0.87 k/uL Normal 06-08-2019 [facility] ([id number]) Comment: Performed By: #### CBC, HIV1 2C, RUBIGG, SYPHTX, AHCV, HBSAG #### [facility] [address] [place], [place] [address] Abs Neut 8.53 1.45-7.50 k/uL High 06-08-2019 [facility] ([id number]) Comment: Performed By: #### CBC, HIV1 2C, RUBIGG, SYPHTX, AHCV, HBSAG #### [facility] [address] [place], [place] [address] Absolute nRBC <0.01 <0.01 Normal 06-08-2019 [facility] ([id number]) Comment: Performed By: #### CBC, HIV1 2C, RUBIGG, SYPHTX, AHCV, HBSAG #### [facility] [address] [place], [place] [address] Basophils/100 WBC (Bld) 0.1 % Normal 2019 [facility] ([id number]) Comment: Performed By: #### CBC, HIV1 2C, RUBIGG, SYPHTX, AHCV, HBSAG #### [place] [address] [place] [address] DTYPE Auto Diff Normal 06-08-2019 [facility] ([id number]) Comment: Performed By: #### CBC, HIV1 2C, RUBIGG, SYPHTX, AHCV, HBSAG #### [address] [address] Eosinophils (Bld) [#/Vol] 0.13 <0.46 k/uL Normal 05-23 [facility] ([id number]) Comment: Performed By: #### CBC, HIV1 2C, RUBIGG, SYPHTX, AHCV, HBSAG #### [place] [address] [place] [address] Eosinophils/100 WBC (Bld) 1.2 % Normal 05-23 [facility] ([id number]) Comment: Performed By: #### CBC, HIV1 2C, RUBIGG, SYPHTX, AHCV, HBSAG #### [place] [address] Erythrocyte distribution 13.4 11.5-15.0 % Normal 06-08 [facility] width (RBC) [Ratio] [place] ([id number]) Comment: Performed By: #### CBC, HIV1 2C, RUBIGG, SYPHTX, AHCV, HBSAG #### [facility] [address] [place], [place] [address] Hematocrit (Bld) [Volume 36.7 36.0-46.0 % Normal 06-08 [facility] ([id number] Comment: Performed By: #### CBC, HIV1 2C, RUBIGG, SYPHTX, AHCV, HBSAG #### [facility] [address] [place], [place] [address] Hemoglobin (Bld) 11.8 11.5-15.5 g/dL Normal 06-08-2019 [facility] [Mass/Vol] [place] ([id number]) Comment: Performed By: #### CBC, HIV1 2C, RUBIGG, SYPHTX, AHCV, HBSAG #### [facility] [address] [place] [address] Lymphocytes (Bld) [#/Vol] 1.72 1.00-4.00 k/uL Normal 05-23 [facility] ([id number]) Comment: Performed By: #### CBC, HIV1 2C, RUBIGG, SYPHTX, AHCV, HBSAG #### [facility] [address] [place] [address] Lymphocytes/100 WBC (Bld) 15.8 % Normal 05-23 [facility] ([id number]) Comment: Performed By: #### CBC, HIV1 2C, RUBIGG, SYPHTX, AHCV, HBSAG #### [address] [address] MCH (RBC) [Entitic mass] 29.2 26.0-34.0 pG Normal 06-08 [facility] ([id number]) Comment: Performed By: #### CBC, HIV1 2C, RUBIGG, SYPHTX, AHCV, HBSAG #### [facility] [place], [place] [address] MCHC (RBC) [Mass/Vol] 32.2 30.5-36.0 g/dL Normal 06-08-19 [facility] ([id number]) Comment: Performed By: #### CBC, HIV1 2C, RUBIGG, SYPHTX, AHCV, HBSAG #### [facility] [address] [place], [place] [address] MCV (RBC) [Entitic vol] 90.8 80.0-100.0 fL Normal 06-08 [facility] ([id number]) Comment: Performed By: #### CBC, HIV1 2C, RUBIGG, SYPHTX, AHCV, HBSAG #### [facility] [address] [place] [address] Monocytes/100 WBC (Bld) 4.9 % Normal 2019 [facility] ([id number]) Comment: Performed By: #### CBC, HIV1 2C, RUBIGG, SYPHTX, AHCV, HBSAG #### [address] [address] Neutrophils/100 WBC (Bld) 78.0 % Normal 05-23 [facility] ([id number]) Comment: Performed By: #### CBC, HIV1 2C, RUBIGG, SYPHTX, AHCV, HBSAG #### [facility] [address] [place] [address] NRBCs 0.0 0 /100 WBC Normal 06-08-2019 [facility] ([id number]) Comment: Performed By: #### CBC, HIV1 2C, RUBIGG, SYPHTX, AHCV, HBSAG #### [place] [address] Platelet mean volume 10.7 9.0-12.[address] [facility] (Bld) [Entitic vol] [place] ([id number]) Comment: Performed By: #### CBC, HIV1 2C, RUBIGG, SYPHTX, AHCV, HBSAG #### [facility] [place], [place] [address] Platelets (Bld) [#/Vol] 268 150-400 k/uL Normal 2019 [facility] ([id number]) Comment: Performed By: #### CBC, HIV1 2C, RUBIGG, SYPHTX, AHCV, HBSAG #### [facility] [address] [place], [place] [id number] RBC (Bld) [#/Vol] 4.04 3.90-5.20 m/uL Normal 06-08-2019 [facility] ([id number]) Comment: Performed By: #### CBC, HIV1 2C, RUBIGG, SYPHTX, AHCV, HBSAG #### [facility] [address] [place], [place] [address] WBC (Bld) [#/Vol] 10.92 3.70-11.00 k/uL Normal 06-08-2019 [facility] ([id number]) Comment: Performed By: #### CBC, HIV1 2C, RUBIGG, SYPHTX, AHCV, HBSAG #### [facility] [address] [place], [place] [address] 50g, 1hr gest. gscrn on 2019-06-08 Glucose [Mass/Vol] 113 74-134 mg/dL Normal 06-08-2019 [facility] ([id number]) Comment: Result Comment: Citizen Of [place] Con lee of Obstetricians and Gynecologists (María Elena/Emma) [facility] state a gestational diabetes mellitus positive screen is made, in women not previously diagnosed with overt diabetes, when the 1 hr plas ma glucose level is equal to or above 140 mg/dL. The [facility] Order Checker and [facility] [place] recommends a 135 mg/dL cutoff. Performed By: #### CBC, HIV1 2C, RUBIGG, SYPHTX, AHCV, HBSAG #### [facility] [address] [place], [place] [address] progress on 2019-05 PROGRESS HNO ID: [id number] Normal 06-05-2019 [facility] Author: Haylie Gutierrez ([id number]) Service: ? Author Type: Physician Type: Progress Notes Filed: 06/05/2019 1:08 PM Note Text: NST SUMMARY PROVIDER ASSESSMENT AND INTERPRETATION Ermias Egan is a 23 year old female, , who is at 26w2d with an TREV of 09/09/2019, by Ultrasound dating method. Indications for NST: Decreased Movement Baseline: 140 Variability: Moderate Accelerations: N/A Decelerations: Variable Contractions: TOCO: None Interpretation: reassuring for GA SIGNATURE: Haylie Urena MD tsh on 2019-05-05 TSH Qn 0.794 0.270-4.200 uU/mL Normal 05-05-2019 [facility] ([id number]) Comment: Result Comment: If the patie nt is , TSH reference range varies by gestational period: First Trimester (weeks 9-12) : 0.180-2.990 mcIU/mL Second Trimester: 0.110-3.98 0 mcIU/mL Third Trimester: 0.480-4.710 mcIU/mL Yosi Haskins et al. A Practica l Approach for the Verifications and Determination of Site- and Trimester-Specific Reference Intervals for Thyroid Function tests in . Thyroid, 2019:29:3:412-420. Al dexter Hall, et al. 2017 Guide lines of the Citizen Of The [place] Thyroid Association for the Diagnosis and Management of Thyroid Disease during and the . Thyroid, 2017:27:3:315-389. Performed By: #### TSH ####C [facility] [place], [place] [phone] progress on 2019-03 PROGRESS HNO ID: [id number] Normal 04-19-2019 [facility] Author: Jesse Farfan ([id number]) Service: ? Author Type: Physician Type: Progress Notes Filed: 04/19/2019 8:31 AM Note Text: Please see ultrasound report for details of this visit. Jesse Farfan M.D. trichomonas prep on 2019-03-26 Trichomonas Prep Sp. Request/Comment: - Swab Johanna l 03-26-2019 [facility] Smear Result - Negative for Trichomonas vaginalis antigen This test was developed and its performance characteristics determined by [facility] [place] ([id number]) [place] ([facility]). It has not been cleared or approved by the FDA. [facility] is regulated under CLIA as qualified to perform high complexity testing. This test is used for clinical purposes. It should not be regarded as investigational or for research. Comment: Performed By: #### TRICHO ## ##[place] [id number] [place], [place] [id number]- [phone] cnco on 2019-03-26 CNCO Letter Text Normal 03-26-2019 [facility] ([id number]) bact/cand vag grm st on 2019-03-26 Bact/Cand Vag Sp. Request/Comment: - Swab Critical ly 03-26-[address] [place] [address] abnormal Clinic Smear Result - BACTERIAL VAG INOSIS RESULT: Stain results consistent with normal vaginal manan. No Yeast observed Moderate Polymorphonuclear leukocytes Moderate --> ABNORMAL ALERT Gram negative bacilli --> ABNORMAL ALERT [place] ([id number]) Comment: Performed By: #### BVCNSM ## ##[address] [phone] cnco on 2019-03-24 CNCO Clinical report posted in error Normal 03-24-2019 [facility] ([id number]) Void Comment: error Letter Text Letter Text urine culture on 10-03-29 Bacteria Sp. Request/Comment: - Specimen received in preservative Critically 03-20-2019 [place] identified Cx Nom abnormal Cl inic (U) Culture Result - <10,000 CFU /ml Streptococcus agalactiae (Group B streptococcus) --> ABNORMAL ALERT No further workup --> ABNORMAL ALERT [place] ([id number]) Comment: Performed By: #### URCUL ### [address] [phone] type and scr,prenatl on 2019-03-20 ABO/RH(D) A POSITIVE Normal 03-20-2019 [facility] ([id number]) Comment: Performed By: #### TSPN #### [facility] [address] [place], [place] [phone] toxicology screen,ur on 2019-03-20 Amphetamines, Urine Negative Negative Normal 03-20-2019 [facility] ([id number]) Comment: Result Comment: Cutoff thres hold at 1000 ng/mL. Performed By: #### UTOX2 ### # [facility] [address] [place] [address] Barbiturates, Urine Negative Negative Normal 03-20-2019 [facility] ([id number]) Comment: Result Comment: Cutoff thres hold at 200 ng/mL. Performed By: #### UTOX2 ### # [facility] [address] [place] [address] Benzodiazepines, Ur Negative Negative Normal 03-20-2019 [facility] ([id number]) Comment: Result Comment: Cutoff thres hold at 200 ng/mL. Performed By: #### UTOX2 ### # [facility] [address] [place] [address] Cannabinoids, Urine Negative Negative Normal 03-20-2019 [facility] ([id number]) Comment: Result Comment: Cutoff thres hold at 50 ng/mL. Performed By: #### UTOX2 ### # [facility] [address] [place] [address] Cocaine, Urine Negative Negative Normal 03-20-2019 [facility] ([id number]) Comment: Result Comment: Cutoff thres hold at 300 ng/mL. Performed By: #### UTOX2 ### # [facility] [address] [place] [id number] Ethanol, Urine <11 <11 Normal 03-20-2019 [facility] ([id number]) Comment: Performed By: #### UTOX2 ### # [facility] [address] [place] [id number] Opiates, Urine Negative Negative Normal 03-20-2019 [facility] ([id number]) Comment: Result Comment: Cutoff thres hold at 300 ng/mL. Performed By: #### UTOX2 ### # [facility] [address] [place] [phone] Oxycodone, Urine Negative Negative Normal 03-20-[address] [facility] ([id number]) Comment: Result Comment: Cutoff thres hold at 100 ng/mL. Comment: Immunoassay screen only. Field Support Specialist ss reactivity with other substances can occur with immunoassay screening. Detection of any drug(s) in this urine toxicology panel is presumptive only. These tests are for med ical purposes only and shoul d not be used for compliance monitoring, legal, or forensic use. Samples should be within nor mal physiological conditions (e.g. pH). This assay does not include adulteration/specimen validity testing. In clinical settings, confir matory testing is at the practitioner's discretion [1]. If clinically indicated, confirmation by high specificity, quantitative methodology, which includes adulteration/speci men validity testing, may be requested on the same specimen through Client Services ([phone]) if contacted within 48 hours of initial testing. [1]Substance Abuse and [facility] Services Administration (2012). Clinical Drug Testing in Primary Care Technical Assistance Publication Series 32. Department of Health and Human Services, [place], p.10. Performed By: #### UTOX2 ### # [facility] [address] [place] [address] Phencyclidine, Urine Negative Negative Normal 9 [facility] ([id number]) Comment: Result Comment: Cutoff thres hold at 25 ng/mL. Performed By: #### UTOX2 ### # [facility] [address] [place] [address] syphilis ttl w/reflx on 2019-03-20 Syphilis Interp Cannot exclude recent Normal [facility] Treponemal infection if [place] ([id number]) specimen collected within 7 to 10 days after appearance of suspect lesions or 2 to 3 weeks after an exposure. Clinical correlation is required. Comment: Performed By: #### CBC, HIV1 2C, RUBIGG, SYPHTX, AHCV, HBSAG #### [facility] [address] [place], [place] [id number] Syphilis Screen Non Reactive Non Reactive Normal 03-20-[address] [facility]slt [place] ([id number]) Comment: Performed By: #### CBC, HIV1 2C, RUBIGG, SYPHTX, AHCV, HBSAG #### [facility] [address] [place] [id number] rubella igg antibody on 2019-03-20 Rubella IgG Ab 1.30 Index Value Normal 03-20-2019 [facility] ([id number]) Comment: Result Comment: Index values are interpreted as follows: Negative specimens <0.90 Equivocol specimens 0.90 to 0.99 Positive specimens >0.99 The magnitude of the measure d result is not indicative of the amount of antibody present. Performed By: #### CBC, HIV1 2C, RUBIGG, SYPHTX, AHCV, HBSAG #### [facility] [address] [place] [id number] Rubella IgG Ab, Positive Negative Critically abnormal 02-21 [facility] ([id number]) Comment: Result Comment: Sample is co nsidered positive for IgG antibodies to rubella virus. A positive result indicates previous exposure to Rubella virus or vaccination. Performed By: #### CBC, HIV1 2C, RUBIGG, SYPHTX, AHCV, HBSAG #### [facility] [address] [place] [address] progress on 2019-02 PROGRESS HNO ID: [id number] Normal 03-20-2019 [facility] Author: Roland Perkins [place] ([id number]) Service: ? Author Type: Physician Type: Progress Notes Filed: 03/20/2019 4:47 PM Note Text: INITIAL OB ASSESSMENT OB Provider: Roland Perkins DO HPI: Ermias Egan is a 23 year old female here to [facility]. Patient's last menstrual period was 2018 (approximate). from OB Dating Form. Cycle length: irregular Complaints: cramping was unplanned but accepted. Obstetric History T0 L0 SAB0 TAB0 Ectopic0 Multiple0 Live Births0 Prior : never History of 4th degree laceration: No Patient's Risk Screening for delivery: History of abnormal pap: No Prior treatment for cervical dysplasia: none. 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 No pertinent surgical history. Current Outpatient Medications on File Prior to Visit Medication Sig - Mzywhlor-Se-Lap-Fe-FA ( VITAMIN) tab Take 1 tablet by mouth. - levothyroxine sodium (LEVOTHYROXINE ORAL) Take by mouth. - metformin HCl (METFORMIN ORAL) Take by mouth. - norgestimate-ethinyl estradiol (SPRINTEC, 28, ORAL) Take b y mouth. - Qmsgiwomqsvcprm-Xuhypbzij-QC (BROMFED DM) 2-30-10 mg/5 mL syrup Take 5 mL by mouth four times daily as needed. (Patient not taking: Reported on 03/12/2019 ) No current facility-administered medications on file prior t o visit. Review of Systems: GENERAL: Negative for: Fever or Chills HEENT: Negative for: Headache, Impaired Vision, Ringing in E ars, Nosebleeds NECK: Negative for: Swelling, Pain, Stiffness RESPIRATORY: Negative for: Cough, Shortness of breath, Wheez ing GASTROINTESTINAL: Negative for: Heartburn, Constipation, Sarah rrhea, Blood in stool, Vomiting MUSCULOSKELETAL: Negative for: Muscle or joint pain, stiffne ss, Joint swelling NEUROLOGIC/PSYCHIATRIC: Negative for: Weakness, Paralysis SKIN: Negative for: Rash, Itching GENITOURINARY: Negative for: vaginal itching, vaginal discha rge, hematuria or dysuria PHYSICAL EXAM: BP 120/74 Ht 4' 10.5 (1.49m) Wt 166 lb 6 .4 oz (75.5kg) LMP 11/18/2018 BMI 34.18 kg/(m2). GENERAL: pleasant female in no apparent distress DERMATOLOGY: Normal, without lesions, non-icteric and non-hi rsute NECK: Supple, full range of motion, no adenopathy and thyroi d normal CHEST: Normal inspiratory effort BREAST: soft, non-tender, symmetric, no dominant mass, johanna l nipple-areolar complex, no lymphadenopathy and no nipple dis charge ABDOMEN: soft, non-tender and no masses NEURO: exam grossly non-focal PELVIS: External genitalia normal without lesions. Perineal body intact. No vaginal or cervical lesions. Cervix closed. Uterus 15 wee k size. No adnexal masses or tenderness. Clinical Pelvimetry: Pelvimetry clinically assessed as adequ ate Limited OB ultrasound exam: single intrauterine an d positive cardiac activity and femur length c/w 15 w 4 d ASSESSMENT: 23 year old at 15 wks gestational age PLAN: 1) Patient oriented to practice. Discussed nutrition, folic acid supplementation, dietary shanti delines, exercise, smoking, alcohol, caffeine, and drug use. Discussed routine OB labs including STD/HIV. Discussed aneuploidy screening options including serum scree leo and nuchal translucency. Patient declines all aneuploidy screening. CF carrier screening discussed and accepted. Hypothyroidism: Had thyroid panel drawn this week, has an ap pointment with endo on Saturday. Discussed following TSH q 4-6 wks Depression/anxiety: Goes to counseling at [facility] in [facility]. Her counselor had prescribed Zoloft. She did not take it. Mood s table. Reviewed r/b/a of Zoloft in . Records of dating US scanned into chart Follow up in 4 weeks or sooner prn. Roland Perkins, DO [id number] ag +[id number] ab on 2019-03-20 HIV 12 Ag/Ab Non Reactive Non Reactive Normal 03-20-2019 [facility] ([id number]) Comment: Performed By: #### CBC, HIV1 2C, RUBIGG, SYPHTX, AHCV, HBSAG #### [facility] [address] [place], [place] [address] HIV-1/2 Antibody Normal 03-20-[address] [facility] ([id number]) Comment: Result Comment: Test Not Ind icated Negative No evidence of HIV-1 or HIV- 2 infection. Should recent infection be suspected, repeat testing may be considered 2-3 weeks after this draw. HIV Information: [place] Rev. C ode 3701.243(E): This information has been di sclosed to you from confidential records protected from disclosure by state law. You shall make no further disclosure of this information without the specific, written, and i nformed release of the indiv idual to whom it pertains or as otherwise permitted by state law. A general authorization for the release of medical or other information is not sufficient for the purpose of the release of HIV test results or diagnoses. Performed By: #### CBC, HIV1 2C, RUBIGG, SYPHTX, AHCV, HBSAG #### [facility] [address] [place] [phone] hepatitis c ab ia o n 2019-03-20 Hepatitis C Ab IA Negative Negative Normal 03-20-2019 [facility] ([id number]) Comment: Performed By: #### CBC, HIV1 2C, RUBIGG, SYPHTX, AHCV, HBSAG #### [place] [address] hepatitis b surf. ag on 2019-03-20 Hepatitis B Surf. Ag Negative Negative Normal 9 [facility] ([id number]) Comment: Performed By: #### CBC, HIV1 2C, RUBIGG, SYPHTX, AHCV, HBSAG #### [place] [phone] gc/chlamydia amplif on 2019-03-20 Chlamydia Amplif Negative for Chlamydia Normal 03-20-2019 [facility] trachomatis by Ludwin sandhu ([id number]) amplification. Comment: Performed By: #### GCCT #### [place] [phone] GC Amplification Negative for Neisseria Normal 03-20-2019 [facility] gonorrhoeae by Ludwin sandhu ([id number]) amplification. Comment: Performed By: #### GCCT #### [address] [phone] GC/Chlam Amp Source Cervix Normal 03-20-2019 [facility] ([id number]) Comment: Performed By: #### GCCT #### [address] [place], [place] [phone] cytology on 2019-02 CYTOLOGY Specimen originated from [facility] Normal 03-20-2019 [place] Specimen #: [id number] [facility] Submitting Physician: ROLAND PERKINS DO [place] SPECIMEN SUBMITTED ( [id number]) A: CERVICAL, SCREENING, FLUID FINAL DIAGNOSIS A. CERVICAL, SCREENING, FLUID Satisfactory for interpretation. No endocervical component. Negative for intraepithelial lesion or malignancy. This specimen has been analyzed by the ThinPrep Imaging Syst em, an automated imaging and review system, which assists the labor atory in evaluating cells on ThinPrep Pap tests. Following automated imaging, selected coleman from every slide are reviewed by a cytotechn ologist. MARISEL Mitchell(ASCP) (Electronic Signature) CLINICAL DATA ROUTINE EXAM, HPV Testing: Yes, Reflex HPV for ASCUS Date of Last Menstrual Period: STAINS A: CERVICAL, SCREENING, FLUID THIN PREP CLIENT ADVOCATE Jimmy Carter M.D., Systems Coordinator Date of Report: 03/25/2019 Date of Procedure: 03/20/2019 Date of Receipt: 03/23/2019 Submitted by: ROLAND PERKINS DO Location: [facility] Diagnostic interpretation performed at [facility], [address] [facility] [address]. CLIA Number: [id number] The Pap Smear is a screening test for cervical cancer. False negative results occur with all screening tests, emphasizing the need for rescreening at recommended intervals, and clinical correlati on. cbc on 2019-03-20 Absolute nRBC <0.01 <0.01 Normal 03-20-2019 [facility] ([id number]) Comment: Performed By: #### CBC, HIV1 2C, RUBIGG, SYPHTX, AHCV, HBSAG #### [facility] [address] [place], [place] [address] Erythrocyte distribution 13.6 11.5-15.0 % Normal 03-20 [facility] width (RBC) [Ratio] [place] ([id number]) Comment: Performed By: #### CBC, HIV1 2C, RUBIGG, SYPHTX, AHCV, HBSAG #### [facility] [address] [place] [address] Hematocrit (Bld) [Volume 38.2 36.0-46.0 % Normal 03-20 [facility] fraction] [place] ([id number]) Comment: Performed By: #### CBC, HIV1 2C, RUBIGG, SYPHTX, AHCV, HBSAG #### [facility] [address] [place] [address] Hemoglobin (Bld) 12.8 11.5-15.5 g/dL Normal 03-20-2019 [facility] [Mass/Vol] [place] ([id number]) Comment: Performed By: #### CBC, HIV1 2C, RUBIGG, SYPHTX, AHCV, HBSAG #### [facility] [address] [place] [address] MCH (RBC) [Entitic mass] 29.7 26.0-34.0 pG Normal 03-20 [facility] ([id number]) Comment: Performed By: #### CBC, HIV1 2C, RUBIGG, SYPHTX, AHCV, HBSAG #### [facility] [address] [place], [place] [address] MCHC (RBC) [Mass/Vol] 33.5 30.5-36.0 g/dL Normal 03-20-20 19 [facility] ([id number]) Comment: Performed By: #### CBC, HIV1 2C, RUBIGG, SYPHTX, AHCV, HBSAG #### [facility] [address] [place], [place] [address] MCV (RBC) [Entitic vol] 88.6 80.0-100.0 fL Normal 03-20 [facility] ([id number]) Comment: Performed By: #### CBC, HIV1 2C, RUBIGG, SYPHTX, AHCV, HBSAG #### [facility] [address] [place] [address] Platelet mean volume 10.7 9.0-12.[address] [facility] (Bld) [Entitic vol] [place] ([id number]) Comment: Performed By: #### CBC, HIV1 2C, RUBIGG, SYPHTX, AHCV, HBSAG #### [place] [address] Platelets (Bld) [#/Vol] 276 150-400 k/uL Normal 2018 [facility] ([id number]) Comment: Performed By: #### CBC, HIV1 2C, RUBIGG, SYPHTX, AHCV, HBSAG #### [place] [id number] [place] [address] RBC (Bld) [#/Vol] 4.31 3.90-5.20 m/uL Normal 03-20-2019 [facility] ([id number]) Comment: Performed By: #### CBC, HIV1 2C, RUBIGG, SYPHTX, AHCV, HBSAG #### [place] [address] [place] [address] WBC (Bld) [#/Vol] 13.41 3.70-11.00 k/uL High 03-20-2019 [facility] ([id number]) Comment: Performed By: #### CBC, HIV1 2C, RUBIGG, SYPHTX, AHCV, HBSAG #### [facility] [address] [place], [place] [address] tsh on 2019-03-18 TSH Qn 1.04 0.44 - 3.98 mIU/L Normal 03-18-2019 [facility] ([id number]) Comment: Result Comment: TSH testing is performed using different testing methodology at [facility]) than at other [facility]. Direct res ult comparisons should only be made within the same method. Performed By: #### TSH2 #### [place] [address] [place] [address] cnnurse on CNNURSE Nurse Visit (WOOB) Normal 03-12-2019 [place] ERMIAS Jernigan ([id number]) [address] [facility] Date Time Provider Department ([id number]) 03/12/19 2:00 PM NURSE PNOB [facility] WSTR WOOB During your visit today, we recorded the following informati on about you: Last Period 12/03/18 Lit Blackwood RN 03/12/2019 2:48 PM Signed SEQUENTIAL SCREENINGS The [facility] offers sequential s creenings for women who are interested in screenings for chromosomal abnormalit ies and certain defects during a . The sequential screen combines ultrasound and blo od tests to determine the risk of chromosomal abnormalities, including D own's Syndrome (Trisomy 21) and Trisomy 18, as well as open neural tube def ects including spina bifida. Ultrasound exa mination is performed between 11 weeks and 13 weeks gestational age. Blood tests are drawn a fter the ultrasound and again later in the between 15 and 21 weeks gestational age. Pleas e let your physician know if you are interested in this testing. It aissatou l require an appointment with our ultraso und two way radio technician. This is not an ultrasound performed by a physician in our office during a routine visit. SIGNS AND SYMPTOMS OF LABOR 1. Contractions every 10 minutes or more often 2. Clear, pink, or brownish fluid (water) leaking from vagin a 3. Feeling that baby is pushing down, pressure 4. Low, dull backache 5. Cramps that feel like a period 6. Cramps with or without diarrhea If you notice any of the abo ve symptoms, contact our office at [phone] and ask to speak with a nurse. After hours, you can call doctors registry at [phone] O R call [facility] at [phone] and ask to have the doctor microelectronics assembler paged. If you consider this an emergency, dial 9--1 or go to your nearest emergency department. Cord-Blood Banking Up until recently, the umbkimani ical cord--along with the blood that remained in it after a baby was born and the cord cut--was simp ly discarded by the hospital. Then, in the late , researchers discovered that cord bl ood possessed unusual properties that made it useful in the tr eatment of patients with some cancers and other illnesses. While the a ctual process of collecting cord blood is straightforward, many parents are not even aware that thi s option now exists, much less familiar with all the issues involved. The case for saving your baby's cord blood The blood running back and forth between your baby and the placenta is full of immature cells called stem cells. Unlike embryon ic stem cells, which have the ability to develop into any type of body cell, cord-bl ood stem cells already are locked into a certain, vital functio n: making all the different components of the blood, such as platelets, white blood cells, and red blood cells-serving, in effect, like bone marrow. When transfused into a patient whose own blood cells have faulty genetic coding or have bee n destroyed by chemotherapy or other cancer treatments, the cord-blood cell s can implant themselves in the bone marrow and generate legions of new, h ealthy cells. These days, cord-blood transplants most commonly are u sed in cancer patients when a donor can't be found for a bone-marrow transplant. Th e treatment is particularly effective in young patients-the [facility] Cord Blood Bank reports a 70 percent success rate in childr en, but only 20 to 40 percent in adults. Researchers envision improving those odds and see many future applications as well, such as curing sickle cell disease and other blood-related genetic illnesses. So ther e is a possibility that your child, or someone else, may need these super-healthy and versatile enoch ls one day. The drawbacks Aside from not knowing about this medical option , the main reason most people do not save their baby's stem cells is cost. In a private ood bank, the initial costs run from $275 to $1,500. Most also charge a yearly storage fee of $50 to $95. The advantage of using a [employer] bank is that your sample is saved for only you to use. An alternative to private banking Public cord-blood ochoa are an alternative. These cost no money to use, but your sample is not specifically saved for you. Another perso n with a more immediate need may use it. If the time should come varinder t you need stem cells, yours may still be available, or you may use donations from other people without charge. You also can direct your sample to go to a relative with an immediate need if the blood type matches. Anyone else needing to use stem cells from a public bank who has not been a do nor must pay for it, sometimes tens of thousands of dollars. Will my family benefit from saving stem cells? Right now, situations in which stem cells would be helpful are quite rare. As mentioned earlier, stem-cell transplants are most commonly u sed for rare genetic conditions and for some types of cancer, including l eukemia and lymphoma. And even with these present uses, many questions remain. In cancer treatment, for example, some researchers are concerned abou t the wisdom of transplanting back into the child the same cells that already showed a propensity to become malignant. Doctors also aren 't sure if the number of cells taken at the time of would be enough to treat a full-grown 16-year-old. It is also not completely clear how active the cells would be after years of being stored. The treatment is so new and rare, we just do n't have the data yet to resolve these important issues. What do the experts say? The [employer] [place] [employer] encourages philanth [facility] blood banking in public ochoa, but only for families with a current or potent ial need. Blood-bank proponents encour age any kind of banking, pointing out that research is getting closer and closer to many diverse, live-saving ap plications. How do I decide? Each family must weigh the p ros and cons for themselves. Some families say that any cost is worth their peace of mind. Others say that in th e face of uncertainty about the effectiveness of the treatment, they w ill use their resources elsewhere. Some choose the middle ground of donmarilu hunter publicly, knowing that their sample might benefit another family, if not themselves. For more information, ask your doctor or nurse, and be sure to c heck out our article on the technical aspects of cord-blood banking. Technical Aspects of Cord-Blood Banking If you are interested in storing your baby's umbilical -cord blood because of its possible use in emerging medical treatments, you must make arrangements with a blood bank before your child is b orn. The collection procedure is quite simple: After delivery of the baby, the umbilica l cord is clamped and cut in the usual way. The blood that remains in the umbil ical-cord vessels is then collected in sterile containers. The blood may be rem aida from the cord with a large needle or allowed to flow freely, depending on the company's collection system. The containers may look like large test tubes or like the plastic bags used in a blood bank. It does not cause the mother or the baby a ny pain to collect the blood, and no blood is taken that the baby needs at the [facility]. The nurse, primary clinician, or physician will then label the samples, check them over with you, and package them for a special pickup arranged wit h a commercial carrier. When the blood arri ves at the blood-bank facility, it is processed and the parents are notified. It is then kept in an advanced s torage system for years. How do I know that my sample is safe? Power outages and bankruptci es potentially could threaten any organization, but so far none have been reported. It is to be hoped that the scientists in these ochoa would arrange for safe transfer to another [facility] if the need arose. YOU MUST MAKE ARRANGEMENTS AHEAD OF TIME! Public cord-blood ochoa--DONATION: [employer] [phone] [facility]'s Placental Blood Program, [facility] Umbilical Cord Blood Bank, Private cord-blood ochoa--SAVING FOR YOUR OWN USE: [employer], (I think this is the least expensive) [employer] [phone] [employer], (170) [employer] [address] [place] Cord Blood Bank, [phone]-CORD Cells, [phone] [place] Cry[facility], Cord Blood Registry, (759) [facility] [employer], An Internet search may provide you with additional listings. Lit Blackwood RN 03/12/2019 4:32 PM Signed Patient is here today with her parents and the FOB. Jhon falk is transferring care from Dr Raymond in [place]. She stat es she was last seen 02/18/2019 in his office. She signed a release of records form for her records to be transferred here yesterday.She has a his tory of hypothyroidism diagnosed at age 12. She has been followed by [place] [facility]. She states varinder t she last had thyroid labs drawn 3 weeks ago and h as a follow up appointment with her Red Hat Engineer 03/2019. Pt has a history of depression and anxiety diagnose d in 2017. She never took any medication to treat it . Does att end counseling at [facility] in [place]. Discussed increased risks of depression during p regnancy and and importance of reporting the development or worsening of symptoms should they occur.Pt states she last had suicidal thou ghts 9 months ago. Has done cutting in the past but none since 04/2018. .Stella bravo's mother born with VSD, Pulmonary Atresia and and transposition of great fransisca willard. Pt is aware to take thyroid medication and vitamins at different times of day due to their interactions. TKRN Referring Provider: SELF [200] Allergies As of Date: 03/12/2019 Noted Allergy Reaction BACTRIM (SULFAMETHOXAZOLE-TRIMETH*03/12/2019 9 - Itching 11 - Vomiting Date Reviewed: 03/12/2019 Reviewed by: Lit Blackwood RN - Fully Assessed Reason for Visit: Care [86] Cmt: Pre-New OB Primary Visit Diagnosis: with care elsewhe re, antepartum [Z34.90] Other Visit Diagnoses:History of hypothyroidism [Z86.39] History of depression [Z86.59] Family history of congenital heart defect [Z82.79] Prescriptions as of 03/12/2019 Sig: VITAMIN TABLET Take 1 tablet by mouth. LEVOTHYROXINE ORAL Take by mouth. METFORMIN ORAL Take by mouth. SPRINTEC (28) ORAL Take by mouth. BROMPHENIRAMINE-PSEUDOEPHEDRI* Take 5 mL by mouth four times * Patient not taking: Reported on 03/12/2019 Problem List As Of Date 03/12/2019 Noted Resolved with care elsewhere, antepar*03/12/2019 More... History of hypothyroidism [Z86.39] 03/12/2019 More... History of depression [Z86.59] 03/12/2019 More... Family history of congenital heart defect [Z82.*03/12/2019 More... Other instructions from your clinician: SEQUENTIAL SCREENINGS The [facility] offers sequential screenings for women who are interested in screenings for chromosomal abnormalities and c ertain defects during a . The sequential screen combines u ltrasound and blood tests to determine the risk of chromosomal abnormaliti es, including Down's Syndrome (Trisomy 21) and Trisomy 18, as well as open neural tube defects including spina bifida. Ultrasound examination is pe rformed between 11 weeks and 13 weeks gestational age. Blood tests a re drawn after the ultrasound and again later in the between 15 a nd 21 weeks gestational age. Please let your physician know if you are i nterested in this testing. It will require an appointment with our ultras ound two way radio technician. This is not an ultrasound performed by a physici an in our office during a routine visit. SIGNS AND SYMPTOMS OF LABOR 1. Contractions every 10 minutes or more often 2. Clear, pink, or brownish fluid (water) leaking from vagin a 3. Feeling that baby is pushing down, pressure 4. Low, dull backache 5. Cramps that feel like a period 6. Cramps with or without diarrhea If you notice any of the above symptoms, contact our office at [phone] and ask to speak with a nurse. After hours, you can call doctors registry at [phone] O R call [facility] at [phone] and ask to have the doctor microelectronics assembler paged. If you consider this an emergency, dial or go to your nearest emergency department. Cord-Blood Banking Up until recently, the umbilical cord--along with the blood that remained in it after a baby was born and the cord cut--was simply dis carded by the hospital. Then, in the late 1980s, researchers discovered th at cord blood possessed unusual properties that made it useful in the omero tment of patients with some cancers and other illnesses. While the [facility] process of collecting cord blood is straightforward, many parents ar e not even aware that this option now exists, much less familiar with a ll the issues involved. The case for saving your baby's cord blood The blood running back and forth between your baby and the p lacenta is full of immature cells called stem cells. Unlike embryonic s tem cells, which have the ability to develop into any type of body cell , cord-blood stem cells already are locked into a certain, vital function : making all the different components of the blood, such as platelets, wh ite blood cells, and red blood cells-serving, in effect, like bone mar row. When transfused into a patient whose own blood cells have faulty genetic coding or have been destroyed by chemotherapy or other cancer treat ments, the cord-blood cells can implant themselves in the bone marrow a nd generate legions of new, healthy cells. These days, cord-blood transplants most commonly are used in cancer patients when a donor can't be found for a bone-marrow trans plant. The treatment is particularly effective in young patients-the [facility] Cord Blood Bank reports a 70 percent success rate in children, but only 20 to 40 percent in adults. Researchers envision im proving those odds and see many future applications as well, such as jac g sickle cell disease and other blood-related genetic illnesses. So there is a possibility that your child, or someone else, may need these super-healthy and versatile cells one day. The drawbacks Aside from not knowing about this medical option, the main r ese most people do not save their baby's stem cells is cost. In a [facility] blood bank, the initial costs run from $275 to $1,500. Most also c joss a yearly storage fee of $50 to $95. The advantage of using a private bank is that your sample is saved for only you to use. An alternative to private banking Public cord-blood ochoa are an alternative. These cost no mo abi to use, but your sample is not specifically saved for you. Another p erson with a more immediate need may use it. If the time should come that you need stem cells, yours may still be available, or you may use donation s from other people without charge. You also can direct your sample to go to a relative with an immediate need if the blood type matches. Anyone els e needing to use stem cells from a public bank who has not been a donor m ust pay for it, sometimes tens of thousands of dollars. Will my family benefit from saving stem cells? Right now, situations in which stem cells would be helpful a re quite rare. As mentioned earlier, stem-cell transplants are most commonl y used for rare genetic conditions and for some types of cancer, includ ing leukemia and lymphoma. And even with these present uses, many questions remain. In cancer treatment, for example, some researchers are concerned about the wisdom of transplanting back into the child the same cells that alread y showed a propensity to become malignant. Doctors also aren't sure if the number of cells taken at the time of would be enough to treat a full-grown 16-year-old. It is also not completely clear how active the cells would be after years of being stored. The treatment is so new and rar e, we just don't have the data yet to resolve these important issues. What do the experts say? The [employer] [place] [employer] encourages philanthropic blood banking in public ochoa, but only for families with a current or pot ential need. Blood-bank proponents encourage any kind of banking, pointin g out that research is getting closer and closer to many diverse, live- saving applications. How do I decide? Each family must weigh the pros and cons for themselves. Vel e families say that any cost is worth their peace of mind. Others say that in the face of uncertainty about the effectiveness of the treatment, they w ill use their resources elsewhere. Some choose the middle ground of donati ng publicly, knowing that their sample might benefit another family, if n ot themselves. For more information, ask your doctor or nurse, and be sure to check out our article on the technical aspects of cord-blood banking. Technical Aspects of Cord-Blood Banking If you are interested in storing your baby's umbilical-cord blood because of its possible use in emerging medical treatments, you must make arrangements with a blood bank before your child is born. Th e collection procedure is quite simple: After delivery of the baby, the umbilical cord is clamped an d cut in the usual way. The blood that remains in the umbilical-cord vess els is then collected in sterile containers. The blood may be removed fr om the cord with a large needle or allowed to flow freely, depending on the company's collection system. The containers may look like large test t ubes or like the plastic bags used in a blood bank. It does not cause the mother or the baby any pain to collect the blood, and no blood is taken th at the baby needs at the moment. The nurse, primary clinician, or physician will then label the samples , check them over with you, and package them for a special pickup arrange d with a commercial carrier. When the blood arrives at the blood-bank facility, it is processed and the parents are notified. It is then kept i n an advanced storage system for years. How do I know that my sample is safe? Power outages and bankruptcies potentially could threaten an [employer] organization, but so far none have been reported. It is to b e hoped that the scientists in these ochoa would arrange for safe transfe r to another facility if the need arose. YOU MUST MAKE ARRANGEMENTS AHEAD OF TIME! Public cord-blood ochoa--DONATION: [employer] [phone] [facility]'s Placental Blood Program, [facility] Umbilical Cord Blood Bank, Private cord-blood ochoa--SAVING FOR YOUR OWN USE: [employer], (I think this is the least expensive) [employer] [phone] [employer], (003) [employer] [address] [place] Cord Blood Bank, [phone] 700-CORD Cells, [phone] [place] Cryobank, Cord Blood Registry, ([phone]) [facility], An Internet search may provide you with additional listings. Disposition: Return in about 8 days (around 03/20/2019) for New OB with Dr Perkins. Follow-up and Disposition History Recorded Letter Text Encounter Status:Closed by LIT BLACKWOOD RN on 03/12/19 terrestrial ecologist - office visit on 2019-02-18 MULTIFOCAL BUTTON GENERATOR - Office Chief Complaint Normal 02-19-20 19 Touchworks Visit ([id number]) Patient referred here by her PCP for positive serum HCG. Patient states she thinks her last period was at the end of October and she was told she couldn't get due to PCOS. Patient states she has h ad some nausea, vomiting and breast tenderness. History of Present Illness Presents stating she is not had a menstrual flow for several months. She had a positive test obtained through her family physician's office. She has some nausea and breast tenderness for the l ast several weeks. Denies any vaginal bleeding or discharge. Review of Systems Review of Systems: Constitutional: No fever or chills Respiratory: No shortness of breath, or cough Cardiovascular: No chest pain or syncope Breasts: No breast pain, no masses, no nipple discharge Gastrointestinal: No nausea, vomiting, or diarrhea, no abdom inal pain Genitourinary: No dysuria or frequency Gynecology: Negative except as noted in history of present i llness 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) Depression (311) (F32.9) Encounter for gynecological examination without abnormal finding (V72.31) (Z01.419) Generalized anxiety disorder with panic attacks (300.02,300.01) (F41.1,F41.0) 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) Added by Problem List Migration; 2013-03-29 Hypothyroidism (244.9) (E03.9) Irregular periods (626.4) (N92.6) Polycystic ovarian syndrome (256.4) (E28.2) Positive urine test (V72.42) (Z32.01) (V22.2) (Z34.90) Screening for cervical cancer (V76.2) (Z12.4) Short stature (783.43) (R62.52) Added by Problem List Migration; 2013-03-29 Past Medical History History of Functional bowel disorder (564.9) (K59.9) 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) History of Menarche (V21.8) AGE 12 History of Pap test, as part of routine gynecological examination (V76.2) (Z01.419) 02/03/19 Surgical History No history of surgery Family History Family history of congenital heart disease (V19.5) (Z82.79) Family history of migraine headaches (V17.2) (Z82.0) Family history of Irregular heart beat Family history of carpal tunnel syndrome (V17.2) (Z82.0) Family history of hypothyroidism (V18.19) (Z83.49) Family history of hypothyroidism (V18.19) (Z83.49) Family history of hypertension (V17.49) (Z82.49) Family history of myocardial infarction (V17.3) (Z82.49) Family history of hypertension (V17.49) (Z82.49) Family history of myocardial infarction (V17.3) (Z82.49) Family history of Other and unspecified bipolar disorders Social History Former cigarette smoker (V15.82) (Z87.891) History of Light tobacco smoker (305.1) (F17.200) No advance directives (V49.89) (Z78.9) No alcohol use Sexually active Allergies Bactrim Itching; Itching; Recorded By: Gertrude Hong; 02/03/2019 1 0:41:08 AM Current Meds Levothyroxine Sodium 75 MCG Oral Tablet; TAKE 1 TABLET DAILY DIRECTED; Therapy: 20Jun2018 to (Evaluate:[id number]) Requested for: ; Last Rx:20Jun2018 Ordered Rx By: Olga Cordero; Disp ense: 30 Days ; #:30 Tablet; Refill: 5;For: Acquired hypothyroidism; NANCY = N; Verified Transmission to [facility]; Last Updated By: Gertrude Hong; 02/03/2019 10:49:11 AM metFORMIN HCl - 500 MG Oral Tablet; TAKE 2 TABLETS DAILY; Therapy: 01Oct2017 to Recorded Rx By: BLAKE; Dispense: 0 Day s ; #: Sufficient Tablet; Refill: 0;For: Polycystic ovarian syndrome; NANCY = N; Record; Last Updated By: Gertrude Hong; 02/03/2019 1:39:19 PM Multi +DHA 27-0.8-250 MG Oral Capsule; Therapy: (Recorded:18Feb2019) to Recorded Dispense: 0 Days ; #: Suffic ient; Refill: 0;For: SocHx: Light tobacco smoker; NANCY = N; Record; Last Updated By: Muriel Alicia; 02/18/2019 2:12:49 PM Vitals Vital Signs Recorded: 18Feb2019 02:10PM [id number] Wxrodxxwk70 Height4 ft 11 in Wrihlf48.4 kg BMI Wtmolkpnlt88.68 BSA Calculated1.69 [id number] Physical Exam PHYSICAL EXAMINATION: Well-developed, well nourish ed, in no acute distress, alert and oriented x three, is pleasant and cooperative. HEENT: Clear. Pupils equal, round and reactive to light and accommodation. Extraocular muscles are intact. Oral mucosa pink without exudate. NECK: No lymphadenopathy, no thyromegaly. LUNGS: Clear bilaterally. HEART: Regular rate and rhythm without murmurs. ABDOMEN: Normoactive bowel s ounds, soft and nontender, no guarding or rebound tenderness, no CVA tenderness. EXTREMITIES: No clubbing, cyanosis or edema. NEUROLOGIC: Cranial nerves II-XII grossly intact. Procedure Transabdominal ultrasound sh ows a live intrauterine at 11 weeks 0 days gestation. EDC is September 09, 2019. Diagnoses/Problems History of Light tobacco smoker (305.1) (F17.200) Amenorrhea (626.0) (N91.2) Orders Tobacco Use Screening; Status:Complete; Done: 18Feb2019 Perform:Not Applicable;Order ed; For:SocHx: Former cigarette smoker; Ordered By:Muriel Alicia; Provider Impressions Amenorrhea--patient to return in 4 weeks for her new OB visi t. Signatures Electronically signed by : Jaziel Raymond MD; Feb 18 2:37PM EST (Author) well woman visit on 2019-02-03 [facility] Woman Chief Complaint Normal 02-03-2019 Touchworks Visit ([id number]) pap and breast exam History of Present Illness Interval Events: Past medica l, surgical, social and family history reviewed and updated. Interval Care: She does not have regular dental visits. She receives routine vision care. Immunizations up to date. Lifestyle: She does not have a healthy diet. She consumes alcohol. She reports occasional alcohol use. She uses tobacco. She is sexually active. Exercise: None. states not s exually active for approx 1 mo - no longer with boyfriend. Female Health:. Date of last period: October 2018 - not taking control since then - Menses were regular when taking that. Also not taking levothyroxine for months. : 0. She uses contraception. For contraception, she uses oral contraception pills and admits to not being compliant with her control medication. Never had pap previously. Review of Systems Constitutional: no fever, no recent weight gain, no recent weight loss and no chills. Cardiovascular: no chest susu n, no shortness of breath and no lower extremity edema. Respiratory: no cough, no wh eezing that is consistent with asthma and no shortness of breath during exertion. Gastrointestinal: no diarrhe a, no constipation, no bloody stools, no nausea, no vomiting and no abdominal pain. Genitourinary: no dysuria, n o hematuria, no pelvic pain and no vaginal discharge. Skin: no rashes. Endocrine: thyroid disorder, but no excessive thirst and no increased urinary frequency. 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) Added by Problem List Migration; 2013-03-29 Hypothyroidism (244.9) (E03.9) Irregular periods (626.4) (N92.6) Polycystic ovarian syndrome (256.4) (E28.2) Short stature (783.43) (R62.52) Added by Problem List Migration; 2013-03-29 Surgical History No history of surgery Family History Family history of congenital heart disease (V19.5) (Z82.79) Family history of migraine headaches (V17.2) (Z82.0) Family history of Irregular heart beat Family history of carpal tunnel syndrome (V17.2) (Z82.0) Family history of hypothyroidism (V18.19) (Z83.49) Family history of hypothyroidism (V18.19) (Z83.49) Family history of hypertension (V17.49) (Z82.49) Family history of myocardial infarction (V17.3) (Z82.49) Family history of hypertension (V17.49) (Z82.49) Family history of myocardial infarction (V17.3) (Z82.49) Family history of Other and unspecified bipolar disorders Social History Light tobacco smoker (305.1) (F17.200) No advance directives (V49.89) (Z78.9) Allergies Bactrim Itching; Itching; Recorded By: Gertrude Hong; 02/03/2019 1 0:41:08 AM Current Meds Medication NameInstruction Levothyroxine Sodium 75 MCG Oral TabletTAKE 1 TABLET DAILY A S DIRECTED. metFORMIN HCl - 500 MG Oral TabletTAKE 2 TABLETS DAILY. Sertraline HCl - 50 MG Oral Tablet Sprintec 28 0.25-35 MG-MCG Oral TabletTAKE 1 TABLET DAILY DIRECTED. Vitals Vital Signs Recorded: 03Feb2019 01:30PM Heart Rate72 Pmmigmtg975, LUE Wacwszxpr75, LUE Height4 ft 11 in Iiiuee399 lb BMI Pzqazzanaq72.92 BSA Calculated1.69 Physical Exam Constitutional General appearance: Alert and in no acute distress. Neck Neck Exam: Appearance of the neck was normal. No neck masses observed. mild thyroid enlargement b/l. Pulmonary Respiratory assessment: No r espiratory distress, normal respiratory rhythm and effort. Auscultation of Lungs: Clear bilateral breath sounds. Cardiovascular Auscultation of heart: Apica l pulse normal, heart rate and rhythm normal, normal S1 and S2, no murmurs and no pericardial rub. Exam for edema: No peripheral edema. Chest Breast inspection: Normal appearance. Abdomen Abdominal Exam: No bruits, n ormal bowel sounds, soft, non-tender, no abdominal mass palpated. Genitourinary External genitalia and vagina: Normal. Cervix: Normal. Uterus: Abnormal. The uterus was enlarged. Skin Skin inspection: Normal skin color and pigmentation, normal skin turgor and no visible rash. Psychiatric Mood and affect: Normal. 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) (N91.1) Orders Amenorrhea, secondary, Positive urine test HCG, Serum - Qualitative; Sp ecimen Source:Blood (BLD); Status:Active; Requested for:03Feb2019; Perform:Lab Services - Lab T o Draw (Blood Test); Due:04May2019;Ordered; For:Amenorrhea, secondary, Positive urine test; Ordered By:Olga Berumen; Generalized anxiety disorder with panic attacks Stop: Sertraline HCl - 50 MG Oral Tablet Rx By: ASHLY; Dispense: 0 Days ; #: Sufficient Tablet; Refill: 0;For: Generalized anxiety disorder with panic attacks; NANCY = N; Record; Last Updated By: Gertrude Hong; 02/03/2019 1:39:20 PM Hypothyroidism T4 - Free Thyroxine, Serum; Specimen Source:Blood (BLD); Status:Hold For - Exact Date; Requested for:Approx 06Mar2019; Perform:Lab Services - Lab T o Draw (Blood Test); Due:04May2019;Ordered; For:Hypothyroidism; Ordered By:Olga Berumen; TSH - Thyroid Stimulating Ho rmone, Serum; Specimen Source:Blood (BLD); Status:Hold For - Exact Date; Requested for:Approx 06Mar2019; Perform:Lab Services - Lab T o Draw (Blood Test); Due:04May2019;Ordered; For:Hypothyroidism; Ordered By:Olga Berumen; Irregular periods Stop: Sprintec 28 0.25-35 MG-MCG Oral Tablet Rx By: Stalin Albright se: 30 Days ; #:30 Tablet; Refill: 2;For: Irregular periods; NANCY = N; Sent To: [facility]; Last Updated By: Olga Berumen; 02/03/2019 2:22:12 PM IO HCG, Urine Test ; Status:Resulted - Requires Verification,Retrospective Authorization; Done: 03Feb2019 02:14PM Performed:In Office; Due:; Last Updated By:Gertrude Hong; 02/03/2019 2:17:57 PM;Ordered; For:Irregular periods; Ordered By:Olga Berumen; Screening for cervical cancer PAP [facility], Cytology; Status:Hold For - Specimen/Data Collectio n; Requested for:03Feb2019; Perform:[facility] Cytology; Due:;Ordered; For:Screening for cervical cancer; Ordered By:Olga Berumen; Last Menstrual Period (LMP): : 10/2018 PAP - Site : CERVICAL Part 3 : 16/18 Genotyping for All HPV Positive Results Part 2 : Reflex - HPV For ASC-US Only Part 1 : Screening SocHx: Light tobacco smoker Tobacco Use Screening; Status:Complete; Done: 03Feb2019 Perform:Not Applicable;Order ed; For:SocHx: Light tobacco smoker; Ordered By:Gertrude Hong; Provider Impressions With the + in office pregnan cy test result will get serum confirmation today. If neg will need to have US for the enlarged uterus finding. D/t her hypothyroidism she w ill need TSH/FT4 today as if she does have confirmation today will need to see endo as well as [facility]. Stop control pill and will need to start brianne min. She notes she is no longer o n the zoloft and not taking the metformin regularly either. Signatures Electronically signed by : CAITLIN Somers; Feb 03 2019 2:24PM EST (Author) [facility] cytology on 201 12-30-14 [facility] Cytology Date of Procedure: 02/03/2019 Normal 02-03-2019 [facility] Pathologist: [facility], [facility] Date Reported: 02/09/2019 ([id number]) Date Received: 02/04/2019 Submitting Physician: OLGA RICK CNP FINAL CYTOLOGICAL INTERPRETATION A. THINPREP PAP CERVICAL Reflex - Ascus only: Specimen adequacy: SATISFACTORY FOR EVALUATION. Quality Indicator: Endocervical/transformation zone componen t is present. Quality Indicator: Partially obscuring blood and exudate. General Categorization: NEGATIVE FOR INTRAEPITHELIAL LESION OR MALIGNANCY. Ancillary Testing: Specimen does not meet the requisition-stated criteria for H PV testing. See Pap test interpretation above. This specimen has been lahsell zed by the [employer]Prep Imaging System ([employer] an automated imaging and review system, which assists the la boratory in evaluating cells on ThinPrep Pap tests. Followin g automated imaging, selected coleman from every slide were reviewed by a dog track kennel manager and/or pathologist. Electronically Signed Out By [facility], Cytology//NCK By the signature on this report, the individual or group listed as making the Final Interpretation/Diagnosis certifies that they have re viewed this case. Educational Note: Cervical cytology is a screening procedure prima rily for squamous cancers and precursors and has associated false-negative and false-posit yumiko results as evidenced by published data. Your patien t?s test should be interpreted in this context, together with patient?s history and clinical findin gs. Regular sampling and follow-up of unexplained clinical signs and sym ptoms are recommended to minimize false negative results. Clinical History Date of Last Menstrual Period: 10/2018 Other Clinical Conditions: HPV Reflex for ASC-US only - Include HPV Genotype Source of Specimen A: THINPREP PAP CERVICAL Reflex - Ascus only Comment: Performed By: #### C #### [facility] Cytology [address] [facility] [address] tsh on 2019-02-03 TSH Qn 3.19 0.44 - 3.98 mIU/L Normal 02-03-2019 [facility] ([id number]) Comment: Result Comment: TSH testing is performed using different testing methodology at [facility]) than at other [facility] hospitals. Direct res ult comparisons should only be made within the same method. Performed By: #### TSH2 #### [facility] [address] [place] [address] tsh - thyroid stimulating hormone, serum on 2019-02-03 TSH Qn 3.19 See Below {mIU/L} 02-03-2019 [facility] ([id number]) Comment: Reference Range: 0.44 - 3.98 TSH testing is performed using different testing methodology at [facility] than at other system hospitals. Direct result com parisons should only be made within the same method. thyroxine,free on 2 THYROXINE,FREE 0.83 0.78 - 1.48 ng/dL Normal 02-03-2019 [facility] ([id number]) Comment: Result Comment: Thyroxine Fr ee testing is performed using different testing methodology at [facility] than at other [facility] hospitals. Direct res ult comparisons should only be made within the same method. Patients receiving more than 5 mg/day of biotin may have interference in test results. A sample sh ould be taken no sooner than eight hours after previous dose. Performed By: #### T4FRE ### # [facility] [address] [place] [id number] t4 - free thyroxine, serum on 2019-02-03 Free T4 [Mass/Vol] 0.83 See Below ng/dL 02-03-2019 [facility] ([id number]) Comment: Reference Range: 0.78 - 1.48 Thyroxine Free testing is performed using different testing methodolog y at [facility] than at other [facility]. Direct res ult comparisons should only be made within the same method. Patients receiv ing more than 5 mg/day of biotin may have interference in test results . A sample should be taken no sooner than eight hours after previous dose. [facility] cytology on 2019-02-03 [facility] Date of Procedure: 02/03/2019 Normal 02-03-2019 [facility] Pathologist: [facility], Cytology [facility] Date Reported: 02/11/2019 ([id number]) Date Received: 02/04/2019 Submitting Physician: OLGA RICK CNP Attending Physician: OLGA RICK CNP FINAL CYTOLOGICAL INTERPRETATION Cytology Report issued by [facility] will follow. Electronically Signed Out By [facility], Cytology//TFP By the signature on this report, the individual or group listed as making the Final Interpretation/Diagnosis certifies that they have re viewed this case. Educational Note: Cervical cytology is a screening procedure prima rily for squamous cancers and precursors and has associated false-negative and false-posit yumiko results as evidenced by published data. Your patien t?s test should be interpreted in this context, together with patient?s history and clinical findin gs. Regular sampling and follow-up of unexplained clinical signs and sym ptoms are recommended to minimize false negative results. Clinical History Date of Last Menstrual Period: 10/2018 Other Clinical Conditions: HPV Reflex for ASC-US only - Include HPV Genotype Z12.4 Z11.51A. IMAGED THINPREP PAP, SCREENING: Source of Specimen A: IMAGED THINPREP PAP, SCREENING io hcg, urine test on 2019-02-03 HCG ( test) Ql (U) Positive [facility] ([id number]) Comment: exp 11/19/2019 medline [id number] hcg,serum qualitative on 2019-02-03 HCG,SERUM QUALITATIVE POSITIVE Negative Abnormal 02-04-20 19 [facility] (00 000) Comment: Performed By: #### HCGS #### [facility] [address] [place] [address] hcg, serum - qualitative on 2019-02-03 HCG ( test) Ql POSITIVE Negative Abnormal 2018 [facility] ( [id number]) No panel information on 2019-02-03 Cytology report 02-03-2019 [facility] Cyto stain.thin Prac tana ([id number]) prep Doc (Cvx/Vag) Date of 02-03-2019 [facility] Procedure: 02/03/2019 Practice ([id number]) Pathologist: [facility], CytologyDate Reported: 02/11/2019Date Received: 02/04/2019Submitting Physician: OLGA RICK CNPAttending Physician: OLGA RICK CNP FINAL CYTOLOGICAL INTERPRETATIONCytology Report [facility] by [facility] will follow.Electronically Signed Out By [facility], Cytology//TFP By the signature on this report, the individual or group listed as making theFinal Interpretation/Diagnosis certifies that they have reviewed this case.Educational Note:Cervical cytology is a screening procedure primarily for squamous cancers andprecursors and has associated false-negative and false-positive results asevidenced by published data. Your patient's test should be interpreted in thiscontext, together with patient's history and clinical findings. Regularsampling and follow-up of unexplained clinical signs and symptoms arerecommended to minimize false negative results. Clinical HistoryDate of Last Menstrual Period: 10/2018Other Clinical Conditions:HPV Reflex for ASC-US only - Include HPV NspwhwcnT98.4Z11.51A. IMAGED THINPREP PAP, SCREENING: Source of SpecimenA: IMAGED THINPREP PAP, SCREENING Date of 02-03-2019 [facility] Procedure: 02/03/2019 Practice ([id number]) Pathologist: [facility], CytologyDate Reported: 02/09/2019Date Received: 02/04/2019Submitting Physician: OLGA RICK CNP FINAL CYTOLOGICAL INTERPRETATIONA. THINPREP PAP CERVICAL Reflex - Ascus only: Specimen adequacy: SATISFACTORY FOR EVALUATION. Quality Indicator: Endocervical/transformation zone component is present. Quality Indicator: Partially obscuring blood and exudate. General Categorization: NEGATIVE FOR INTRAEPITHELIAL LESION OR MALIGNANCY. Ancillary Testing: Specimen does not meet the requisition-stated criteria for HPV testing.See Pap test interpretation above. This specimen has been analyzed by the [employer] System ([employer]an automated imaging and review system, which assists the laboratory inevaluating cells on ThinPrep Pap tests. Following automated imaging, selectedfields from every slide were reviewed by a dog track kennel manager and/or pathologist.Electronically Signed Out By [facility], Cytology//NCK By the signature on this report, the individual or group listed as making theFinal Interpretation/Diagnosis certifies that they have reviewed this case.Educational Note:Cervical cytology is a screening procedure primarily for squamous cancers andprecursors and has associated false-negative and false-positive results asevidenced by published data. Your patient's test should be interpreted in thiscontext, together with patient's history and clinical findings. Regularsampling and follow-up of unexplained clinical signs and symptoms arerecommended to minimize false negative results. Clinical HistoryDate of Last Menstrual Period: 10/2018Other Clinical Conditions:HPV Reflex for ASC-US only - Include HPV Genotype Source of SpecimenA: THINPREP PAP CERVICAL Reflex - Ascus only insulin lvl on 2018 Insulin Lvl 21.5 2.6-24.9 mcIU/mL Normal 06-30-2018 [facility] ([id number]) Comment: Result Comment: Performed At : [email or web address] [id number] Sang Chino PhD Ph:[phone] Performed By: #### [id number] #### [facility] [employer] [address] [place] [id number] testost total on 08-07-09 Testoster Tot 27 8-48 ng/dL Normal 2018 [facility] ([id number]) Comment: Result Comment: Performed At : [facility] [address] [place], [place] [id number] Sang Chino PhD Ph:[phone] Performed By: #### [id number] #### [facility] [place] [address] lh on 2018 LH 16.5 mIU/mL Normal 2018 [facility] ([id number]) Comment: Result Comment: Adult Female : Follicular phase 2.4 - 12.6 Ovulation phase 14.0 - 95.6 Luteal phase 1.0 - 11.4 Postmenopausal 7.7 - 58.5 Performed At: [facility] [address] [place], [place] [id number] Sang Chino PhD Ph:[phone] Performed By: #### [id number] #### [facility] [employer] [address] [place] [address] fsh on 2018 FSH 6.8 mIU/mL Normal 2018 [facility] ([id number]) Comment: Result Comment: Adult Female : Follicular phase 3.5 - 12.5 Ovulation phase 4.7 - 21.5 Luteal phase 1.7 - 7.7 Postmenopausal 25.8 - 134.8 Performed At: [facility] [address] [place] [id number] Sang Chino PhD Ph:[phone] Performed By: #### [id number] #### [facility] [employer] [place] [address] lipid profile on 08-07-08 Cholesterol [Mass/Vol] 176 0-189 mg/dL Normal 019 [facility] (00 000) Comment: Result Comment: TOTAL CHOLEE STEROL: <200 NORMAL 200 - 239 BORDERLINE HIGH >240 HIGH Performed By: #### [id number] #### [facility] [place] [address] Cholesterol in HDL [Mass/Vol] 39 >=45 mg/dL Low 06-28-2018 [facility] (00 000) Comment: Performed By: #### [id number] #### [facility] [employer] [facility] [place] [address] Cholesterol in LDL 102 0-130 mg/dL Normal 06-28-2018 [facility] [facility] [place] [Mass/Vol] [facility] Sy stem (09107) Comment: Result Comment: <100 OPTIMAL 100-129 NEAR / ABOVE OPTIMAL 130-159 BORDERLINE HIGH 160-189 HIGH >190 VERY HIGH CALC LDL NOT VALID WHEN TRIG LYCERIDE IS >400 MG/DL Performed By: #### [id number] #### WILBERT RemChem [address] [place] [address] Cholesterol in VLDL 35 0-40 mg/dL Normal 06-28-2018 [facility] [Mass/Vol] System (0 0000) Comment: Performed By: #### [id number] #### WILBERT RemChem [address] [place] [address] Triglyceride [Mass/Vol] 177 0-149 mg/dL High 2018 [facility] (00 000) Comment: Result Comment: AGE DESIRABL E BORDERLINE HIGH 91 D - 9 Y 0 - 74 75 - 99 > 100 10 - 19 Y 0 - 89 90 - 129 > 130 20 -24 Y 0 - 114 115 - 149 > 150 > 25 0 - 149 150 - 199 200 - 499 Performed By: #### [id number] #### WILBERT RemChem [address] [place] [address] hgba1c on 9 HbA1c (Bld) [Mass fraction] 5.2 4.0-6.3 % Normal [facility] (00 000) Comment: Performed By: #### [id number] #### WILBERT RemChem [address] [place] [address] c urine on C Urine Final Report: Rare Normal Normal 05-23 [facility] skin manan isolated System (61417) Comment: Performed By: #### [id number] #### WILBERT RemChem [address] [place] [address] ua complete on 2018 Color (U) Yellow Yellow Normal 06-04-2018 [facility] (58929) Comment: Performed By: #### [id number] #### WILBERT Urinalysis Automated Row[facility] bsection [address] [place] [address] Glucose (U) [Mass/Vol] Negative Negative mg/dL Normal 019 [facility] Sys tem (64565) Comment: Performed By: #### [id number] #### WILBERT Urinalysis Automated [facility] bsection [address] [place] [address] Ketones Ql (U) Negative Negative Normal 06-04-2018 [facility] (47188) Comment: Performed By: #### [id number] #### WILBERT Urinalysis Automated [facility] bsection [address] [place] [address] RBC (U) [#/Vol] 0-3 0-3 Normal 06-04-2018 [facility] (00714) Comment: Performed By: #### [id number] #### WILBERT Urinalysis Automated [facility] bsection [address] [place] [address] UA Blood 1+ Negative Abnormal 06-04-2018 [facility] (15657) Comment: Performed By: #### [id number] #### WILBERT Urinalysis Automated [facility] bsection [address] [place] [address] UA Bacteria Trace None Abnormal 06-04-2018 [facility] (77184) Comment: Performed By: #### [id number] #### WILBERT Urinalysis Automated [facility] bsection [address] [place] [address] UA Clarity Clear Clear Normal 06-04-2018 [facility] (09211) Comment: Performed By: #### [id number] #### WILBERT Urinalysis Automated [facility] bsection [address] [place] [address] UA Leuk Est Negative Negative Normal 06-04-2018 [facility] (02996) Comment: Performed By: #### [id number] #### WILBERT Urinalysis Automated [facility] bsection [address] [place] [address] UA Mucous Trace Trace Abnormal 06-04-2018 [facility] (32698) Comment: Performed By: #### [id number] #### WILBERT Urinalysis Automated [facility] bsection [address] [place] [address] UA Nitrite Negative Negative Normal 06-04-2018 [facility] (99733) Comment: Performed By: #### [id number] #### WILBERT Urinalysis Automated [facility] bsection [address] [place] [address] UA pH 5.0 4.6-8.0 Normal 06-04-2018 [facility] (42456) Comment: Performed By: #### [id number] #### WILBERT Urinalysis Automated [facility] bsection [address] [place] [address] UA Protein Negative Negative Normal 06-04-2018 [facility] (79083) Comment: Performed By: #### [id number] #### WILBERT Urinalysis Automated [facility] bsection [address] [place] [address] UA Spec Grav 1.013 1.003-1.030 Normal 06-04-2018 [facility] (39136) Comment: Performed By: #### [id number] #### WILBERT Urinalysis Automated [facility] bsection [address] [place] [address] UA Squam Epithelial 0-5 0-5 Normal 06-04-2018 [facility] (86418) Comment: Performed By: #### [id number] #### WILBERT Urinalysis Automated [facility] bsection [address] [place] [address] UA Urobilinogen Negative Normal 06-04-2018 [facility] (63648) Comment: Result Comment: Due to a man ufacturing issue, low positive urobilinogen results may be fasely positi ve. Correlate with urine bilirubin and additional clinical/laborato ry findings to assess the risk of hemolytic anemia or liver disease. If clinically indicated, repeat testing with an alternate method is availabl e by contacting the laboratory within 24 hours. Performed By: #### [id number] #### WILBERT Urinalysis Automated [facility] bsection [address] [place] [address] UA WBC 0-5 0-5 Normal 06-04-2018 [facility] (19854) Comment: Performed By: #### [id number] #### WILBERT Urinalysis Automated [facility] bsection [address] [place] [address] Urobilinogen Qn (U) Negative Negative Normal 06-04-2018 [facility] (00 000) Comment: Performed By: #### [id number] #### WILBERT Urinalysis Automated [facility] bsection [address] [place] [address] sed rate automated on 2018-06-04 Sed Rate Automated 29 mm/hr Normal 06-04-2018 [facility] (14957) Comment: Result Comment: AGE-SPECIFIC REFERENCE RANGES FOR SEDIMENTATION RATE AUTOMATED REFERENCE RANGE - MM/HR AGE MEN WOMEN 0-2 0-2 - PUBERTY 3-13 3-13 PUBERTY - 50 YRS 0-15 0-20 > 50 YRS 0-20 0-30 Performed By: #### [id number] #### WILBERT Hematology Manual Subse ction [address] [place] [address] lipase level on 201 12-22-12 Lipase Lvl 12 Int._Unit/L Normal 06-04-2018 [facility] (70461) Comment: Performed By: #### [id number] #### WILBERT [facility] [place] [address] egfr on 2018-06-04 GFR/1.73 sq M predicted >60 mL/min/{1.73_m2} Normal 06-04-2018 [facility] among non-blacks [facility] (08976) (S/P/Bld) [Vol rate/Area] Comment: Order Comment: Order added b y Discern Expert. Performed By: #### [id number] #### WILBERT RemChem [address] [place] [address] crp on 2018-06-04 CRP [Mass/Vol] 4.34 0.00-1.00 mg/dL High 06-04-2018 [facility] (18191) Comment: Performed By: #### [id number] #### WILBERT RemChem [address] [place] [address] cmp on 2018-06-04 Albumin [Mass/Vol] 4.1 3.4-5.0 gm/dL Normal 06-04-2018 [facility] (00 000) Comment: Performed By: #### [id number] # ### WILBERT Datalink [address] [place] [address] Albumin/Globulin [Mass 1.1 1.1-1.9 ratio Normal 019 [facility]] Health Sys tem (82502) Comment: Performed By: #### [id number] # ### WILBERT Datalink [address] [place] [address] Alk Phos 64 33-110 Int._Unit/L Normal 06-04-2018 [facility] (21857) Comment: Performed By: #### [id number] # ### WILBERT Datalink [address] [place] [address] ALT [Catalytic 11 7-45 Int._Unit/L Normal 06-04-2018 [facility] (42349) Comment: Performed By: #### [id number] # ### WILBERT Datalink [address] [place] [address] Anion gap [Moles/Vol] 11 10-20 mEq/L Normal 06-04-19 19 [facility] (00 000) Comment: Performed By: #### [id number] # ### WILBERT Datalink [address] [place] [address] AST [Catalytic 15 9-39 Int._Unit/L Normal 06-04-2018 [facility] (95821) Comment: Performed By: #### [id number] # ### WILBERT Datalink [address] [place] [address] Bili Total 0.30 0.00-1.20 mg/dL Normal 06-04-2018 [facility] (56234) Comment: Performed By: #### [id number] # ### WILBERT Datalink [address] [place] [address] Calcium [Mass/Vol] 8.9 8.6-10.3 mg/dL Normal 06-04-2018 [facility] (00 000) Comment: Performed By: #### [id number] # ### WILBERT Datalink [address] [place] [address] Chloride [Moles/Vol] 103 98-107 mEq/L Normal 9 [facility] (00 000) Comment: Performed By: #### [id number] # ### WILBERT Datalink [address] [place] [address] CO2 [Moles/Vol] 27.0 21.0-32.0 mEq/L Normal 06-04-2018 [facility] (00 000) Comment: Performed By: #### [id number] # ### WILBERT Datalink [facility] [place] [address] Creatinine [Mass/Vol] 0.6 0.5-1.1 mg/dL Normal 06-04-19 [facility] () Comment: Performed By: #### [id number] # ### WILBERT Datalink [address] [place] [address] Globulin (S) [Mass/Vol] 4.0 2.0-4.0 G/DL Normal 2018 [facility] () Comment: Performed By: #### [id number] # ### WILBERT Datalink [address] [place] [address] Glucose [Mass/Vol] 103 70-99 mg/dL High 06-04-2018 [facility] () Comment: Performed By: #### [id number] # ### WILBERT Datalink [address] [place] [address] Potassium [Moles/Vol] 3.8 3.5-5.3 mEq/L Normal 06-04-19 [facility] () Comment: Performed By: #### [id number] # ### WILBERT Datalink [address] [place] [address] Protein [Mass/Vol] 7.7 6.4-8.2 gm/dL Normal 06-04-2018 [facility] () Comment: Performed By: #### [id number] # ### WILBERT Datalink [address] [place] [address] Sodium [Moles/Vol] 137 136-145 mEq/L Normal 06-04-2018 [facility] () Comment: Performed By: #### [id number] # ### WILBERT Datalink [address] [place] [address] Urea nitrogen [Mass/Vol] 10 6-23 mg/dL Normal 06-04 [facility] () Comment: Performed By: #### [id number] # ### WILBERT Datalink [address] [place] [address] Urea nitrogen/Creatinine 16.7 5.4-30.0 ratio Normal 06-04 [facility] [Mass ratio] [facility] (52285) Comment: Performed By: #### [id number] # ### WILBERT Datalink [address] [place] [address] cbc w/ auto diff on 2018-06-04 Erythrocyte distribution 13.8 11.5-14.5 % Normal 06-04 [facility] width (RBC) [Ratio] Health System (51334) Comment: Performed By: #### [id number] # ### WILBERT RemHemo [address] [place] [address] Hematocrit (Bld) [Volume 40.4 36.0-48.0 % Normal 06-04 [facility]] [facility] (27292) Comment: Performed By: #### [id number] # ### WILBERT RemHemo [address] [place] [address] Hemoglobin (Bld) 13.5 12.0-16.0 G/DL Normal 06-04-2018 [facility] [Mass/Vol] [facility] (13697) Comment: Performed By: #### [id number] # ### WILBERT RemHemo [address] [place] [address] MCH (RBC) [Entitic mass] 29.1 27.0-31.0 pg Normal 06-04 [facility] (00 000) Comment: Performed By: #### [id number] # ### WILBERT RemHemo [address] [place] [address] MCHC (RBC) [Mass/Vol] 33.4 33.0-37.0 G/DL Normal 06-04-19 19 [facility] (00 000) Comment: Performed By: #### [id number] # ### WILBERT RemHemo [address] [place] [address] MCV (RBC) [Entitic vol] 87.1 78.0-100.0 fL Normal 06-04 [facility] Sys tem (30382) Comment: Performed By: #### [id number] # ### WILBERT RemHemo [address] [place] [address] Platelet mean volume 9.2 7.4-11.0 fL Normal 9 [facility] (Bld) [Entitic vol] System (53995) Comment: Performed By: #### [id number] # ### WILBERT BrownHemo [facility] [place] [address] Platelets (Bld) [#/Vol] 334 130-400 E3/mcL Normal 2018 [facility] Sys tem (66086) Comment: Performed By: #### [id number] # ### WILBERTDenny BrownHem[address] [address] RBC (Bld) [#/Vol] 4.64 3.90-5.40 E6/mcL Normal 06-04-2018 [facility] (00 000) Comment: Performed By: #### [id number] # ### WILBERT [address] [address] WBC (Bld) [#/Vol] 9.8 3.6-11.0 E3/mcL Normal 06-04-2018 [facility] (00 000) Comment: Performed By: #### [id number] # ### WILBERTDenny BrownHem[address] [address] auto diff on 2018-0 2-13 Basophils (Bld) [#/Vol] 0.1 0.0-0.2 E3/mcL Normal 2018 [facility] tem (43587) Comment: Order Comment: Order Added b y Discern Expert. Performed By: #### [id number] # ### WILBERTDenny BrownHemo [address] [place] [address] Basophils/100 WBC (Bld) 0.5 0.0-2.0 % Normal 2018 [facility] (00 000) Comment: Order Comment: Order Added b y Discern Expert. Performed By: #### [id number] # ### WILBERTDenny BrownHemo [address] [place] [address] Eos Absolute 0.1 0.0-0.7 E3/mcL Normal 06-04-2018 [facility] (08983) Comment: Order Comment: Order Added b y Discern Expert. Performed By: #### [id number] # ### WILBERTDenny BrownHemo [address] [place] [address] Eosinophils/100 WBC (Bld) 0.6 0.0-11.0 % Normal 05-23 [facility] (00 000) Comment: Order Comment: Order Added b y Discern Expert. Performed By: #### [id number] # ### WILBERT Paigeo [address] [place] [address] Lymphocytes (Bld) [#/Vol] 2.2 1.2-3.4 E3/mcL Normal 05-[address] [facility] (52603) Comment: Order Comment: Order Added b y Discern Expert. Performed By: #### [id number] # ### WILBERT Paigeo [address] [place] [address] Lymphocytes/100 WBC (Bld) 22.8 20.0-55.0 % Normal 05-[address] [facility] (20743) Comment: Order Comment: Order Added b y Discern Expert. Performed By: #### [id number] # ### WILBERT Paigeo [address] [place] [address] Vance Absolute 0.7 0.0-0.7 E3/mcL Normal 06-04-2018 [facility] (64592) Comment: Order Comment: Order Added b y Discern Expert. Performed By: #### [id number] # ### WILBERT Paigeo [address] [place] [address] Monocytes/100 WBC (Bld) 7.0 0.0-10.0 % Normal 2018 [facility] (00 000) Comment: Order Comment: Order Added b y Discern Expert. Performed By: #### [id number] # ### WILBERT BrownHemo [address] [place] [address] Neutro Absolute 6.8 1.4-6.5 E3/mcL High 06-04-2018 [facility] (65361) Comment: Order Comment: Order Added b y Discern Expert. Performed By: #### [id number] # ### WILBERT Paigeo [facility] [place] [address] Neutro Auto 69.1 37.0-75.0 % Normal 06-04-2018 [facility] (43105) Comment: Order Comment: Order Added b y Discern Expert. Performed By: #### [id number] # ### WILBERT BrownHemo [address] [place] [address] tsh on 2018-05-26 TSH Qn 3.70 0.30-5.60 mcIU/mL Normal 05-26-2018 [facility] (81482) Comment: Performed By: #### [id number] # ### WILBERT Datalink [address] [place] [address] egfr on 2018-05-26 GFR/1.73 sq M predicted >60 mL/min/{1.73_m2} Normal 05-26-2018 [facility] among non-blacks [facility] (26644) (S/P/Bld) [Vol rate/Area] Comment: Order Comment: Order added b y Discern Expert. Performed By: #### [id number] #### WILBERT RemChem [address] [place] [address] cmp on 2018-05-26 Albumin [Mass/Vol] 4.3 3.4-5.0 gm/dL Normal 05-26-2018 [facility] (00 000) Comment: Performed By: #### [id number] # ### WILBERT RemChem [address] [place] [address] Albumin/Globulin [Mass 1.4 1.1-1.9 ratio Normal 019 [facility]] Health Sys tem (69128) Comment: Performed By: #### [id number] # ### WILBERT RemChem [address] [place] [address] Alk Phos 71 33-110 Int._Unit/L Normal 05-26-2018 [facility] (58387) Comment: Performed By: #### [id number] # ### WILBERT RemChem [address] [place] [address] ALT [Catalytic 15 7-45 Int._Unit/L Normal 05-26-2018 [facility] activity/Vol Health System (83768) Comment: Performed By: #### [id number] # ### WILBERT RemChem [address] [place] [address] Anion gap [Moles/Vol] 11 10-20 mEq/L Normal 05-26-19 19 [facility] (00 000) Comment: Performed By: #### [id number] # ### WILBERT RemChem [address] [place] [address] AST [Catalytic 15 9-39 Int._Unit/L Normal 05-26-2018 [facility] (99357[facility] Comment: Performed By: #### [id number] # ### WILBERT RemChem [address] [place] [address] Bili Total 0.27 0.00-1.20 mg/dL Normal 05-26-2018 [facility] (02536) Comment: Performed By: #### [id number] # ### WILBERT RemChem [address] [place] [address] Calcium [Mass/Vol] 9.4 8.6-10.3 mg/dL Normal 05-26-2018 [facility] () Comment: Performed By: #### [id number] # ### WILBERT RemChem [address] [place] [address] Chloride [Moles/Vol] 102 98-107 mEq/L Normal 9 [facility] () Comment: Performed By: #### [id number] # ### WILBERT RemChem [address] [place] [address] CO2 [Moles/Vol] 28.0 21.0-32.0 mEq/L Normal 05-26-2018 [facility] (00 000) Comment: Performed By: #### [id number] # ### WILBERT RemChem [address] [place] [address] Creatinine [Mass/Vol] 0.7 0.5-1.1 mg/dL Normal 05-26-19 19 [facility] (00 000) Comment: Performed By: #### [id number] # ### WILBERT RemChem [address] [place] [address] Globulin (S) [Mass/Vol] 3.0 2.0-4.0 G/DL Normal 2018 [facility] (00 000) Comment: Performed By: #### [id number] # ### WILBERT RemChem [address] [place] [address] Glucose [Mass/Vol] 87 70-99 mg/dL Normal 05-26-2018 [facility] (91667) Comment: Performed By: #### [id number] # ### WILBERT RemChem [address] [place] [address] Potassium [Moles/Vol] 3.8 3.5-5.3 mEq/L Normal 05-26-19 19 [facility] (00 000) Comment: Performed By: #### [id number] # ### WILBERT BrownChem [address] [place] [address] Protein [Mass/Vol] 7.4 6.4-8.2 gm/dL Normal 05-26-2018 [facility] (00 000) Comment: Performed By: #### [id number] # ### WILBERT DexterraChem [address] [place] [address] Sodium [Moles/Vol] 137 136-145 mEq/L Normal 05-26-2018 [facility] (00 000) Comment: Performed By: #### [id number] # ### WILBERT DexterraChem [facility] [place] [address] Urea nitrogen [Mass/Vol] 14 6-23 mg/dL Normal 05-26 [facility] (00 000) Comment: Performed By: #### [id number] # ### WILBERT RemChem [address] [place] [address] Urea nitrogen/Creatinine 20.0 5.4-30.0 ratio Normal 05-26 [facility] [Mass ratio] [facility] (82206) Comment: Performed By: #### [id number] # ### WILBERT StephanieChem [address] [place] [address] cbc w/ auto diff on 2018-05-26 Erythrocyte distribution 13.5 11.5-14.5 % Normal 05-26 [facility] width (RBC) [Ratio] Health System (15768) Comment: Performed By: #### [id number] # ### WILBERT BrownHemo [address] [place] [address] Hematocrit (Bld) [Volume 40.3 36.0-48.0 % Normal 05-26 [facility]] Health Sys tem (72366) Comment: Performed By: #### [id number] # ### WILBERT RemHemo [address] [place] [address] Hemoglobin (Bld) 13.5 12.0-16.0 G/DL Normal 05-26-2018 [facility] [Mass/Vol] [facility] (11130) Comment: Performed By: #### [id number] # ### WILBERT RemHemo [address] [place] [address] MCH (RBC) [Entitic mass] 28.9 27.0-31.0 pg Normal 05-26 [facility] ( 000) Comment: Performed By: #### [id number] # ### WILBERT RemHemo [facility] [place] [address] MCHC (RBC) [Mass/Vol] 33.4 33.0-37.0 G/DL Normal 05-26-19 19 [facility] () Comment: Performed By: #### [id number] # ### WILBERT RemHemo [address] [place] [address] MCV (RBC) [Entitic vol] 86.4 78.0-100.0 fL Normal 05-26 [facility] Sys tem (93340) Comment: Performed By: #### [id number] # ### WILBERT RemHemo [address] [place] [address] Platelet mean volume 9.1 7.4-11.0 fL Normal 9 [facility] (d) [Entitic vol] System (51585) Comment: Performed By: #### [id number] # ### WILBERT RemHemo [address] [place] [address] Platelets (Bld) [#/Vol] 334 130-400 E3/mcL Normal 2018 [facility] Sys tem (72217) Comment: Performed By: #### [id number] # ### WILBERT RemHemo [address] [place] [address] RBC (Bld) [#/Vol] 4.66 3.90-5.40 E6/mcL Normal 05-26-2018 [facility] (00 000) Comment: Performed By: #### [id number] # ### WILBERT RemHemo [address] [place] [address] WBC (Bld) [#/Vol] 8.4 3.6-11.0 E3/mcL Normal 05-26-2018 [facility] (00 000) Comment: Performed By: #### [id number] # ### WILBERT Brown[address] [address] auto diff on 05-26 Basophils (Bld) [#/Vol] 0.1 0.0-0.2 E3/mcL Normal 2018 [facility] tem (93130) Comment: Order Comment: Order Added b y Discern Expert. Performed By: #### [id number] # ### WILBERT Brown[address] [address] Basophils/100 WBC (Bld) 1.2 0.0-2.0 % Normal 2018 [facility] ( 000) Comment: Order Comment: Order Added b y Discern Expert. Performed By: #### [id number] # ### [address] [address] Eos Absolute 0.0 0.0-0.7 E3/mcL Normal 05-26-2018 [facility] (69625) Comment: Order Comment: Order Added b y Discern Expert. Performed By: #### [id number] # ### WILBERTDenny Paige[address] [address] Eosinophils/100 WBC (Bld) 0.3 0.0-11.0 % Normal [facility] (00 000) Comment: Order Comment: Order Added b y Discern Expert. Performed By: #### [id number] # ### WILBERT Brown[address] [address] Lymphocytes (Bld) [#/Vol] 2.5 1.2-3.4 E3/mcL Normal [facility] tem (26336) Comment: Order Comment: Order Added b y Discern Expert. Performed By: #### [id number] # ### [address] [address] Lymphocytes/100 WBC (Bld) 29.6 20.0-55.0 % Normal [facility] tem (77493) Comment: Order Comment: Order Added b y Discern Expert. Performed By: #### [id number] # ### WILBERT Paigeo [address] [place] [address] Vance Absolute 0.5 0.0-0.7 E3/mcL Normal 05-26-2018 [facility] (89943) Comment: Order Comment: Order Added audra Dunham Expert. Performed By: #### [id number] # ### WILBERT Paigeo [facility] [place] [address] Monocytes/100 WBC (Bld) 5.7 0.0-10.0 % Normal 2018 [facility] (00 000) Comment: Order Comment: Order Added b y Discern Expert. Performed By: #### [id number] # ### WILBERT Paigeo [facility] [place] [address] Neutro Absolute 5.3 1.4-6.5 E3/mcL Normal 05-26-2018 [facility] (86787) Comment: Order Comment: Order Added audra uDnham Expert. Performed By: #### [id number] # ### WILBERT Paigeo [facility] [place] [address] Neutro Auto 63.2 37.0-75.0 % Normal 05-26-2018 [facility] (25771) Comment: Order Comment: Order Added audra fonseca Discern Expert. Performed By: #### [id number] # ### WILBERT Paigeo [address] [place] [address] xr chest pa and lateral on 2017-09-30 XR CHEST PA AND TWO-VIEW CHEST:REASON FOR STUDY: N ormal 09-30-2017 [facility] LATERAL Pre-employment evaluation.REPORT: Hospital The trachea, mediastinum and (43824) heart size are unremarkable. No effusion or nodule or pneumothorax is noted. The diaphragm and bony elements are intact. No infiltrates are noted.IMPRESSION:Nonacute two-view chest. Vital Signs Vital Sign Description Value / Unit Date Location The following section is limited to 5 en tries per type and includes entries from the following time range: [id number] - [id number] 0. BMI (Body Mass Index) 32.68 kg/m2 02-18-[address] ([address]) BMI (Body Mass Index) 32.92 kg/m2 02-03-2019 [facility] (50645) Body weight 73.4 kg 02-18-2019 [facility] [address] [place] ([address]45) Body weight 73.94 kg 02-03-2019 [facility] (58030) BP Diastolic 64 mm[Hg] 02-18-2019 [facility] [address] [place] ([address]) BP Diastolic 60 mm[Hg] 02-03-2019 [facility] (22407) BP Systolic 110 mm[Hg] 02-18-2019 [facility] [address] [place] ([address]882) BP Systolic 106 mm[Hg] 02-03-2019 [facility] (07707) BSA (Body Surface Area) 1.69 m2 02-18-2019 [facility] [address] [place] ([address]) BSA (Body Surface Area) 1.69 m2 02-03-2019 [facility] (91031) Height 149.86 cm 02-18-2019 [facility] [address] [place] ([address]60) Height 149.86 cm 02-03-2019 [facility] (18572) Pulse (Heart Rate) 72 /min 02-03-2019 -[facility] (05025) Encounters Date Type Reason Provider Location 09-30-2017 Ambulatory Encounter for [facility] pre-employment [facility] (000 00) examination 02-18-2019 Patient encounter Disease [facility] [address] [place] ([address]) 02-03-2019 Patient encounter Disease [facility] (58483 ) 06-24-2018 Patient encounter Disease [facility] [facility] Practice ([id number] ) 06-19-2018 Patient encounter Disease [facility] ([id number] ) 09-18-2019 - Subsequent hospital [facility] 09-18-2019 visit by physician Comment: uti/ breast pain Procedures Procedure Name Date Provider Location Follow-up visit 10-15-2019 [facility] (0 0000) Follow-up visit 06-05-2019 [facility] (0 0000) Antibody screen 03-20-2019 [facility] ([id number]) Comment: Performed By: #### TSPN #### [facility] [address] [place] [id number] Assay of free thyroxine 02-03-2019 [facility] (49200) Assay of thyroid stimulating hormone 02-03-2019 [facility] (41058) tsh Gonadotropin chorionic qualitative 02-03-2019 [facility] (18273) History of No history of surgery [facility] (10356) Plan of Treatment Plan Description Date Location DTAP,TDAP,TD (2 - Td) DTAP,TDAP,TD (2 - Td) 06-21-2029 [facility] (32415) PAP TESTING PAP TESTING 03-20-2022 [facility] (07329) CHLAMYDIA SCREENING CHLAMYDIA SCREENING 03-20-2020 [facility] (72058) (18-24) (18-24) GC (GONORRHEA) SCREENING GC (GONORRHEA) SCREENING 03-20-2020 [facility] (80115) (18-24) (18-24) ANNUAL PCP TEAM CHRONIC ANNUAL PCP TEAM CHRONIC 06-30-2015 [facility] (19992) DISEASE VISIT DISEASE VISIT HPV VACCINE (1 - 2-dose HPV VACCINE (1 - 2-dose 2008 [facility] (31368) series) series) T4 - Free Thyroxine, T4 - Free Thyroxine, Serum [facility] (97613) Comment: Approx [id number] TSH - Thyroid Stimulating TSH - Thyroid Stimulating [facility] Hormone, Serum Hormone, Serum (55801) Comment: Approx [id number] NEGATED: Highlighted row has Planned Goals not documented [facility] been ruled out! (11952) no information [facility] (79204) The following information is from the original human readable content Name Dates Details Planned Observations Planned Goals not documented Planned Encounters Appointment; Jaziel Raymond MD On: 18-Feb-2019 13:45 Name Dates Details Planned Observations Planned Goals not documented Name Dates Details Planned Observations Planned Goals not documented Planned Encounters Endocrinology Referral Gynecology Referral Name Dates Details Planned Observations Planned Goals not documented Planned Encounters Appointment; Jaziel Raymond MD On: 24-Mar-2019 13:30 Name Dates Details Planned Observations Planned Goals not documented Planned Encounters Appointment; Jaziel Raymond MD On: 24-Mar-2019 13:30 Immunizations Vaccine Notes Status Date Location Influenza Seasonal Inj influenza, injectable, (completed) 05-13-19 [facility] Quadrivalent Age 3+ quadrivalent, contains (30949) preservative Tdap (Age 7+) tetanus toxoid, (completed) 06-22-2019 [facility] linic reduced diphtheria (05804) toxoid, and acellular pertussis vaccine, adsorbed Payers Payer Name Policy Number Location MMO [id number] [facility] (44 195) [employer] [id number] [facility] (44 195) The following information is from the original human readable contentNo Payer Records FoundNo Payer Records FoundNo Payer Records FoundNo Payer Records FoundNo Payer Records FoundNo Payer Records FoundNo Payer Records FoundNo Payer Records FoundNo Payer Records FoundNo Payer Records FoundNo Payer Records Found Social History Type Social History Date Location Description NEGATED: Highlighted row - [facility] (73240) Tobacco smoking status Never smoker 09-18-2019 [facility] (13132) Tobacco use and exposure Never used 09-18-2019 [facility] (33629) Alcohol intake Ex-drinker (finding) 09-18-2019 [facility] lin (22892) History SDOH Education 13 03-12-2019 [facility] (85599) History SDOH Financial 4 03-12-2019 [facility] (24031) History SDOH Food Worry 1 03-12-2019 - [facility] 03-12-2019 (19761) History SDOH Transport 2 03-12-2019 - [facility] 03-12-2019 (53039) Sex Assigned At Not on file [facility] (81928) Exposure to SARS-CoV-[address] [facility] (event) (46471) The following information is from the original human readable contentNo Social History Records FoundNo Social History Records FoundNo Social History Records FoundNo Social History Records FoundNo Social History Records FoundNo Social History Records FoundNo Social History Records FoundNo Social History Records FoundNo Social History Records FoundNo Social History Records FoundNo Social History Records Found Functional Status Status Assessment Result Location NEGATED: Highlighted Functional status [facility] rowFunctional performance issues are not documented (78096) Mental Status Status Assessment Result Location NEGATED: Highlighted Cognitive status [facility] rowCognitive function issues are not documented (25427) [Interpretation] Family History No Family History Records Found Grandmother Name Dates Details Family history of hypertension (V17.49, Z82.49) Status: Active Family history of myocardial infarction (V17.3, Z82.49) Status: Active Grandfather Name Dates Details Family history of hypertension (V17.49, Z82.49) Status: Active Family history of myocardial infarction (V17.3, Z82.49) Status: Active aunt Name Dates Details Family history of Other and unspecified bipolar disorders (2 96.80, F31.9) Status: Active Mother Name Dates Details Family history of congenital heart disease (V19.5, Z82.79) Status: Active Family history of Irregular heart beat (427.9, I49.9) Status: Active Family history of migraine headaches (V17.2, Z82.0) Status: Active Father Name Dates Details Family history of carpal tunnel syndrome (V17.2, Z82.0) Status: Active Family history of hypothyroidism (V18.19, Z83.49) Status: Active Sister Name Dates Details Family history of hypothyroidism (V18.19, Z83.49) Status: Active Grandmother Name Dates Details Family history of hypertension (V17.49, Z82.49) Status: Active Family history of myocardial infarction (V17.3, Z82.49) Status: Active Grandfather Name Dates Details Family history of hypertension (V17.49, Z82.49) Status: Active Family history of myocardial infarction (V17.3, Z82.49) Status: Active aunt Name Dates Details Family history of Other and unspecified bipolar disorders (2 96.80, F31.9) Status: Active Mother Name Dates Details Family history of congenital heart disease (V19.5, Z82.79) Status: Active Family history of Irregular heart beat (427.9, I49.9) Status: Active Family history of migraine headaches (V17.2, Z82.0) Status: Active Father Name Dates Details Family history of carpal tunnel syndrome (V17.2, Z82.0) Status: Active Family history of hypothyroidism (V18.19, Z83.49) Status: Active Sister Name Dates Details Family history of hypothyroidism (V18.19, Z83.49) Status: Active Grandmother Name Dates Details Family history of hypertension (V17.49, Z82.49) Status: Active Family history of myocardial infarction (V17.3, Z82.49) Status: Active Grandfather Name Dates Details Family history of hypertension (V17.49, Z82.49) Status: Active Family history of myocardial infarction (V17.3, Z82.49) Status: Active aunt Name Dates Details Family history of Other and unspecified bipolar disorders (2 96.80, F31.9) Status: Active Mother Name Dates Details Family history of congenital heart disease (V19.5, Z82.79) Status: Active Family history of Irregular heart beat (427.9, I49.9) Status: Active Family history of migraine headaches (V17.2, Z82.0) Status: Active Father Name Dates Details Family history of carpal tunnel syndrome (V17.2, Z82.0) Status: Active Family history of hypothyroidism (V18.19, Z83.49) Status: Active Sister Name Dates Details Family history of hypothyroidism (V18.19, Z83.49) Status: Active Grandmother Name Dates Details Family history of hypertension (V17.49, Z82.49) Status: Active Family history of myocardial infarction (V17.3, Z82.49) Status: Active Grandfather Name Dates Details Family history of hypertension (V17.49, Z82.49) Status: Active Family history of myocardial infarction (V17.3, Z82.49) Status: Active aunt Name Dates Details Family history of Other and unspecified bipolar disorders (2 96.80, F31.9) Status: Active Mother Name Dates Details Family history of congenital heart disease (V19.5, Z82.79) Status: Active Family history of Irregular heart beat (427.9, I49.9) Status: Active Family history of migraine headaches (V17.2, Z82.0) Status: Active Father Name Dates Details Family history of carpal tunnel syndrome (V17.2, Z82.0) Status: Active Family history of hypothyroidism (V18.19, Z83.49) Status: Active Sister Name Dates Details Family history of hypothyroidism (V18.19, Z83.49) Status: Active Grandmother Name Dates Details Family history of hypertension (V17.49, Z82.49) Status: Active Family history of myocardial infarction (V17.3, Z82.49) Status: Active Grandfather Name Dates Details Family history of hypertension (V17.49, Z82.49) Status: Active Family history of myocardial infarction (V17.3, Z82.49) Status: Active aunt Name Dates Details Family history of Other and unspecified bipolar disorders (2 96.80, F31.9) Status: Active Mother Name Dates Details Family history of congenital heart disease (V19.5, Z82.79) Status: Active Family history of Irregular heart beat (427.9, I49.9) Status: Active Family history of migraine headaches (V17.2, Z82.0) Status: Active Father Name Dates Details Family history of carpal tunnel syndrome (V17.2, Z82.0) Status: Active Family history of hypothyroidism (V18.19, Z83.49) Status: Active Sister Name Dates Details Family history of hypothyroidism (V18.19, Z83.49) Status: Active Grandmother Name Dates Details Family history of hypertension (V17.49, Z82.49) Status: Active Family history of myocardial infarction (V17.3, Z82.49) Status: Active Grandfather Name Dates Details Family history of hypertension (V17.49, Z82.49) Status: Active Family history of myocardial infarction (V17.3, Z82.49) Status: Active aunt Name Dates Details Family history of Other and unspecified bipolar disorders (2 96.80, F31.9) Status: Active Mother Name Dates Details Family history of congenital heart disease (V19.5, Z82.79) Status: Active Family history of Irregular heart beat (427.9, I49.9) Status: Active Family history of migraine headaches (V17.2, Z82.0) Status: Active Father Name Dates Details Family history of carpal tunnel syndrome (V17.2, Z82.0) Status: Active Family history of hypothyroidism (V18.19, Z83.49) Status: Active Sister Name Dates Details Family history of hypothyroidism (V18.19, Z83.49) Status: Active Summary Purpose Advance Directives No Advanced Directives Records FoundNo Advanced Directives Records FoundNo Advanced Directives Records FoundNo Advanced Directives Records FoundNo Advanced Directives Records FoundNo Advanced Directives Records Found Additional Source Comments FOR RECORDS PERTAINING TO PATIENTS WHO ARE OR HAVE BEEN ENROLLED IN A CHEMICAL DEPENDENCY/SUBSTANCE ABUSE PROGRAM, SOME INFORMATION MAY BE OMITTED. This clinical summary was aggregated from multiple sources. Caution should be exercised in using it in the provision of clinical care. This summary normalizes information from multiple sources, and as a consequence, information in this document may materially changethe coding, format and clinical context of patient data. In addition, data may be omittedin some cases. CLINICAL DECISIONS SHOULD BE BASED ON THE PRIMARY CLINICAL RECORDS. [facility] provides no warranty or guarantee of the accuracy or completeness of information in this document. UNRECOGNIZED CONTENT PROVIDED BELOW FOR UNRECOGNIZED SECTION INFORMATION SOURCE DATE CREATED AUTHOR AUTHOR'S ORGANIZATIO N 10/08/2017 [facility] DATE CREATED AUTHOR AUTHOR'S ORGANIZATIO N 12/25/2018 [facility] DATE CREATED AUTHOR AUTHOR'S ORGANIZATIO N 11/11/2019 [facility] DATE CREATED AUTHOR AUTHOR'S ORGANIZATIO N 11/11/2019 [facility] DATE CREATED AUTHOR AUTHOR'S ORGANIZATIO N 11/27/2019 [facility] DATE CREATED AUTHOR AUTHOR'S ORGANIZATIO N 12/14/2019 [facility] UNRECOGNIZED CONTENT PROVIDED BELOW FOR UNRECOGNIZED SECTION Source Comments In the event this information is protected by the Federal Confidentiality of Alcohol and Drug Abuse Patient Records regulations: The Federal rules restrict any use of the information to criminally investigate or prosecute any alcohol or drug abuse patient.[facility]
--- OUTSIDE RECORDS SUMMARY | 2020-02-02 07:58 | XMS RPT_ITS | CCD ---
:1995 External Reference #:[id number] Author Organization [facility] Care Team Providers Name Role Phone Gil Unavailable Unavailable Hadley Berumen Unavailable Unavailable Premtabi Unavailable Unavailable Qasim, N Unavailable Unavailable BIRO Unavailable Unavailable BIRO Unavailable Unavailable [place] Unavailable Unavailable Sgeundo Unavailable Unavailable Hadley Berumen Primary Care Provider Allergies Reported Allergen Reaction(s) Severity Date of Onset Location Sulfamethoxazole / Itching, Vomiting 03-12-2019 - [facility] Trimethoprim (33727) Sulfamethoxazole / Itching, Itching MP-Kira [facility] Trimethoprim Practice (85673 ) Medications Medication Name Sig Date Prescriber Location Ethinyl Estradiol / norgestimate 0.25 09-18-2019 Audrey ([facility]) [facility] norgestimate mg-ethinyl estradiol Colleen Audrey (50853 ) 35 mcg (SPRINTEC) ([facility]) [place] 0.25-35 mg-mcg per tablet Take 1 tablet by mouth once daily. 3 Package 3 09/18/2019 Active Comment: Take 1 tablet by mouth once daily. fluticasone fluticasone (FLONASE) 50 06-05-2019 Ccf Provider [facility]cf [facility] mcg/actuation nasal Provider (42614) spray USE 2 SPRAYS IN EACH NOSTRIL ONCE DAILY NEEDED FOR NASAL CONGESTION 0 06/05/2019 Active Comment: USE 2 SPRAYS IN EACH NOSTRIL ONCE DAILY NEEDED FOR NASAL CONGESTION levothyroxine levothyroxine 09-08-2019 Mariajose [facility] Family (SYNTHROID) 75 mcg Practice (49508) tablet Take 1 tablet by mouth once daily. 30 tablet 2 09/08/2019 Active Levothyroxine Sodium 75 MCG 06-20-2018 Olga [facility] Oral Tablet TAKE 1 TABLET DAILY (94268) DIRECTED. Quantity: 30 Refills: Olga Petty DO Start : 20-Jun-2018 Active Comment: Take 1 tablet by mouth once daily. metFORMIN metFORMIN HCl - 500 10-01-2017 [facility] nd MG Oral Tablet TAKE [facility] Alisson hoskins 2 TABLETS DAILY. (91451) Refills: 0 DO Start : 01-Oct-2017 Active NITROFURANTOIN, nitrofurantoin 09-18-2019 - Audrey ([facility]) [facility] MACROCRYSTALS / monohydrate and 09-25-2019 [place] Audrey (53003) Nitrofurantoin, macrocrystal ([facility]) [place] Monohydrate (MACROBID) 100 mg capsule Take 1 capsule by mouth twice daily for 7 days. 14 capsule 0 09/18/2019 09/25/2019 Active Comment: Take 1 capsule by mouth twic e daily for 7 days. Multi +DHA Multi +DHA [facility] [address] 27-0.8-250 MG Oral 27-0.8-250 MG Oral (44 805) Capsule Capsule Refills: 0 DO Active Multi +DHA 27-0.8-250 MG Oral [facility] [address] (36290) Capsule Refills: 0 Active Ccf Provider Moon Vxzkysys-Yc-Unu-Fe-FA Nfgnantp-Uz-Alv-Fe-FA [facility] (22968) ( VITAMIN) tab ( VITAMIN) tab Take 1 tablet by mouth. 0 Active Comment: Take 1 tablet by mouth. Triamcinolone triamcinolone 09-18-2019 - Audrey ([facility]) Moon Cli kaveh (KENALOG) 0.025 % 09-28-2019 [facility]64[facility] cream Apply to ([facility]) [place] affected area twice daily for 10 days. 80 g 0 09/18/2019 09/28/2019 Active Comment: Apply to affected area twice daily for 10 days. Problems Active Problems Category Problem Name Status Date Location Administrative/social Encounter for Active 09-30-2017 - [facility] admission pre-employment Hospital (000 00) examination Anxiety disorders Generalized anxiety Active [facility] disorder Practice (10248 ) Menstrual disorders Secondary amenorrhea Active [facility] (28125 ) Mood disorders Depressive disorder Active [facility] Family [facility] (80066 ) Other endocrine disorders Polycystic ovarian Active [facility] Family syndrome Practice (69275 ) Other endocrine disorders [facility]ar[facility] [address] ([address]86) Other gastrointestinal 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 [address] (74034) Other nutritional; Obesity Active 06-26-2019 - [facility] endocrine; and metabolic (44 195) disorders Other screening for Cancer cervix - Active [facility] suspected conditions (not screening done [address] mental disorders or (82156) infectious disease) Other skin disorders [facility]hid[facility] [address] ([address]30) Thyroid disorders Acquired hypothyroidism Active [facility] (56463 ) Past or Other Problems Category Problem Name Status Date Location Genitourinary symptoms Bacteriuria Completed 03-23-2019 - [facility] and ill-defined (17833) conditions Other nutritional; H/O: hypothyroidism Completed 03-12-2019 - [facility] endocrine; and (43691) metabolic disorders Other and Urine test Completed 03-12-2019 - [facility] delivery including positive Practice (63713) normal Residual codes; FH: Congenital heart Completed 03-12-2019 - [facility] unclassified disease (19625) NEGATED: Highlighted Disease Completed [facility] Family row has not Practice (47619 ) occurred!Residual codes; unclassified Screening and history H/O: depression Completed 03-12-2019 - [facility] of mental health and (68580) substance abuse codes Unclassified General finding of [facility] Family height Practice (93697 ) Unclassified Patient encounter [facility] Practice (09519 ) Unclassified Cancer cervix screening [facility] Practice (85490 ) Results Result Name Value Range Unit Interpretation Flag Date Location triage - ed on 2019 Triage - ED Quick Triage: Normal 12-11-2019 [facility] Are You no H ealth (72951) Are You Currently Breastfeedingno Chart Review: CHIEF [...] BMI (kg/m2): 39.405 Calculated BSA (m2) 1.87 Merrill Coma Scale: Best Eye Response: (E4) spontaneous [...] Risk Screen - Preferred Language: Normal 2019 [facility] Adult Emergency Preferred Language: [facility] Preferred Language for Discussing Health Care (patient/desjoaquina nee)Trinidadian (40908) Advanced Directives: Advance Directive/DNRno Family Violence Adult: Abuse Screen: Are you or have you been threatened or abused physically, em otionally, or sexually by anyoneno Learning Assessment (Patient): Learning Assessment (Patient): Patient is Able to be Assessed for Learningyes Factors Influencing Readiness to Learnacuteness of illness Factors that Impact Ability to Learnnone Devices/Methods Used to Communicatenone Learning Preferencesaudio Cultural Considerationsnone Developmental Considerationsnone Sikhism Considerationsnone Learning Assessment (Other Learner): Learning Assessment (Other Learner): Other learner availableno Pressure Injury/TB/Substance: Pressure Injury: Pressure Injury Present on Admissionno Do you have a coughno Admission Risk Screen: Significant IndicatorsComplete CAGE: CAGE: Is this an injured patient at a Trauma Center ([facility]/Emiliano/Liz villegas/Winner/Stefan/Metcalfe): no Electronic Signatures: Pricsa Bonilla (CHANTELLE) (Signed 11-Dec-2019 14:32) Authored: Preferred Language, Advanced Directives, Family Vi olence Adult, Learning Assessment (Patient), Learning Assessment (Ot her Learner), Pressure Injury/TB/Substance, CAGE Last Updated: 11-Dec-2019 14:32 by Prisca Bonilla (CHANTELLE) provider note - ed v2 on 2019-12-11 Provider Note - Provider Note - ED v2: Normal 0 12-11-2019 [facility] ED v2 Chart Review: [facility] ED NOTES (43765) ED NOTES: ====HPI==== Patient is a 24-year-old [...] 12 hours SIGNIFICANT EVENTS: No documented data. ONLINE PROGRAM COORDINATOR: Is : no Is : no RESULTS/VITAL SIGNS VITAL SIGNS: T PRBP SpO2O2(LPM) %FiO2 Method 11-Dec-2019 14:27:[id number] 97 room air, no respirat ory support [...] on 2019-11 OBSOLETE Refill (OBGYWM) Normal 11-23-2019 [facility] ERMIAS EGAN ([id number]) 1995 [facility] Time Provider Department (16229) 11/23/19 MARIAJOSE HERRON OBGYWM During your visit [...] [facility] Patient aware that she will need to [...] 11/26/19 progress on 2019-09 PROGRESS HNO ID: [id number] Normal 10-14-2019 [facility] Author: Mariajose Gutierrez ([id number]) Service: ? Author Type: Physician Type: Progress Notes Filed: 10/14/2019 4:48 PM Note Text: VISIT Ermias Egan is a 24 year old year old here for postpa rtum visit. Delivery Summary: C-s ROS/ Recovery: Feeding: Bottle feeding problems: None Menses since delivery: light flow Menstrual pattern prior to : Regular periods [place] since delivery: Resumed Depression: denies symptoms of [...] of harming yourself or others? N/A 4. Oelrichs Depression Scale (EPDS) Total Score: 0 Emotional [...] genitalia normal, normal Bartholin's glands , urethra, Pine Bush's glands, no vulvar lesions, no cervical lesions, [...] - Specimen received in preservative Critically 09-18-2019 Moon identified Cx Nom abnormal Cl inic (U) Culture Result - <10,000 CFU /ml Streptococcus agalactiae (Group B streptococcus) --> ABNORMAL ALERT No further workup --> ABNORMAL ALERT <10,000 CFU/ml Normal urogenital manan Moon (88892) Comment: Performed By: #### CBC, HIV1 2C, RUBIGG, SYPHTX, AHCV, HBSAG #### [facility] Laboratorie s [address] [place] [id number] progress on 2019-08 PROGRESS HNO ID: [id number] Normal 09-18-2019 Moon Author: Audrey Anne) [facility] Service: ? Moon Author Type: Nurse Practitioner ([id number]) Type: Progress Notes Filed: 09/18/2019 4:52 PM [...] ONCE DAILY NEEDED FOR NASAL CONGESTION - Eegsdqmy-Eh-Oxg-Fe-FA ( VITAMIN) tab Take 1 tablet by [...] genitalia normal, normal Bartholin's glands , urethra, Pine Bush's glands, no vulvar lesions, no cervical lesions, [...] on 2019-09-18 CNPN Telephone (OBGYWM) Normal 09-18-2019 [facility] ERMIAS EGAN ([id number]) 1995 [facility] Date Time Provider Department (27657) 09/18/19 MARIAJOSE HERRON OBGYWM During your visit today, [...] 2019-09-18 CNOV Office Visit (OBGYWM) Normal 09-18-[address] [place] [address] Rocco LONGERMIAS Fonseca ([id number]) 1995 [facility] Time Provider Department (17076) 09/18/19 4:15 PM AUDREY MURILLO (TISH) OBGYWM [...] ONCE DAILY NEEDED FOR NASAL CONGESTION - Jwvqflih-Cl-Wov-F e-FA ( VITAMIN) tab Take 1 tablet [...] genitalia normal, johanna l Bartholin's glands, urethra, Pine Bush's glands, no vulvar lesions, no cervical lesions, [...] warm compresses to the breast Audrey Murillo APRN.INDUSTRIAL RELATIONS COUNSELOR Referring Provider: SELF [200] Allergies As of Date: 09/18/2019 Noted Allergy Reaction BACTRIM (SULFAMETHOXAZOLE-TRIMETH*03/12/2019 9 - Itching 11 - Vomiting Date Reviewed: 09/18/2019 Reviewed by: Ligia Barry - Fully Assessed Reason for Visit: Breast Problem [16] Urinary Problem [252] Primary Visit Diagnosis:Dysuria [R30.0] Other Visit Diagnoses:Vaginal odor [N89.8] Oral contraception initial prescription [Z30.011] Mammary disorder [N64.9] Order(s):UA DIP, URINE (POC) [1155547] Order #: [id number] UA DIP, URINE (POC) [] Order #: [id number]. #:[id number] [id number] QUAL UR B/O [0915033] Order #: [id number] URINE CULTURE [SQURCUL] Order #: [id number] norgestimate 0.25 mg-ethinyl estradiol 35 mcg (SPRINTEC) [...] BACT/CRISTHIAN VAG GRAM STAIN [SQBVCNSM] Order #: [id number] F UTURE Prescriptions as of 09/18/2019 Sig: [...] Sp. Request/Comment: - Swab Norm al 09-18-2019 [facility] (73567) Smear Result - BACTERIAL VAG INOSIS RESULT: Stain results indicate mixed morphotypes consistent with transition from normal vaginal manan. No Yeast observed Few Polymorphonuclear leukocytes Moderate Epithelial cells Comment: Performed By: #### CBC, HIV1 2C, RUBIGG, SYPHTX, AHCV, HBSAG #### [facility] Laboratorie s [address] [place], [place] [address] cnpn on 2019-09-09 CNPN Telephone (OBGYWM) Normal 09-09-2019 Moon [facility] ERMIAS EGAN ([id number]) 1995 [facility] Date Time Provider Department (47082) 09/09/19 MARIAJOSE HERRON OBGYWMeliton During your visit [...] TSH Qn 0.836 0.270-4.200 uU/mL Normal 09-07-2019 [facility] (16540) Comment: Result Comment: If the patie nt [...] et al. 2017 Guide lines of the [place] Thy[employer] Association for the Diagnosis and Management of Thyroid Disease during and the . Thyroid, 2017:27:3:315-389. Performed By: #### CBC, HIV1 2C, RUBIGG, SYPHTX, AHCV, HBSAG #### [facility] Laboratorie s [address] [place], [place] [address] progress on 2019-08 PROGRESS HNO ID: [id number] Normal 09-07-2019 [facility] Author: Mariajose Gutierrez ([id number]) Service: ? Author Type: Physician Type: Progress [...] of harming yourself or others? N/A 4. Oelrichs Depression Scale (EPDS) Total Score: 0 Feeding: Breast feeding problems: None Bladder: No dysuria, gross hematuria, urinary frequency, uri nary urgency, or incontinence Bowel symptoms: Negative for abdominal discomfort, blood in stools or black stools and change in bowel habits Abdomen: She reports no incisional redness, tenderness, eryt merrill Bleeding: light flow Bottom and Perineum: No issues Sleep: no sleep concerns, feels rested [place] since delivery: Not resumed Emotional support: Yes [...] on 2019-09-07 CNPN Telephone (OBGYWM) Normal 09-07-2019 [facility] JULISAERMIAS ([id number]) 1995 [facility] Date Time Provider Department (57903) 09/07/19 RICHIE MONROE OBDENISE During your visit [...] this afternoon because she was already in hospital for special surgery area. Muriel Queen RN Allergies As of [...] 09/07/19 progress on 2019-08 PROGRESS HNO ID: [id number] Normal 09-01-2019 [facility] Author: Adriana Ocasio LPN ([id number]) Service: ? Author Type: ? Type: Progress Notes Filed: 09/01/2019 11:44 AM Note Text: Pt delivered via C/S at [facility] on 08/29/[address] Ontiveros and Genna AGUIRRE. See OB Outcome note. Adriana Ocasio LPN slaboratory other o n 2019-08-29 sLaboratory Other The document you are Normal 0 08-29-2019 [facility] (54131) trying to view is stored as a scanned image and cannot be viewed with the KVK TEAM Document Viewer. tishn on 2019-08-13 CNPN Telephone (WOOB) Normal 08-13-2019 Kayode gant [facility] ERMIAS EGAN ([id number]) 1995 [facility] Date Time Provider Department (10885) 08/13/19 ROLAND PERKINS During your visit today, [...] [Mass/Vol] 7.4 2.5-6.6 mg/dL High 08-12-2019 Cl [facility] (46865) protein/creatinine ratio on 2019-08-12 Creatinine,Urine,Ran 203.6 20-300 mg/dL Normal 0 [facility] (19789) Comment: Performed By: #### CBC, HIV1 2C, RUBIGG, SYPHTX, AHCV, HBSAG #### [facility] Laboratorie s [address] [place], [place] [address] Protein (U) [Mass/Vol] 41 0-20 mg/dL High 020 [facility] (71032) Comment: Performed By: #### CBC, HIV1 2C, RUBIGG, SYPHTX, AHCV, HBSAG #### [facility] Laboratorie s [address] [place], [place] [address] Protein/Creatinine Ratio 0.2 <0.2 High 08-11 [facility] (49833) Comment: Performed By: #### CBC, HIV1 2C, RUBIGG, SYPHTX, AHCV, HBSAG #### [facility] Laboratorie s [address] [place], [place] [address] progress on 2019-07 PROGRESS HNO ID: [id number] Normal 08-12-2019 [facility] Author: Jesse Farfan ([id number]) Service: ? Author Type: Physician Type: Progress Notes Filed: 08/12/2019 3:59 PM Note Text: Please see ultrasound report for details of this visit. Jesse Farfan M.D. creatinine on 08-11 Creatinine [Mass/Vol] >60 Normal 08-12-19 20 [facility] (51854) Comment: Result Comment: eGFR (Estima temitope GFR) [...] Creatinine [Mass/Vol] 0.73 0.58-0.96 mg/dL Normal 08-12-19 [facility] (44957) cbc on 2019-08-12 Absolute nRBC <0.01 <0.01 Normal 08-12-2019 [facility] (58638) Erythrocyte distribution 14.0 11.5-15.0 % Normal 08-11 [facility] width (RBC) [Ratio] Moon (39928) Hematocrit (Bld) [Volume 39.2 36.0-46.0 % Normal 08-11 [facility] fraction] Moon (81251) Hemoglobin (Bld) 13.4 11.5-15.5 g/dL Normal 08-12-2019 [facility] [Mass/Vol] Moon (84053) MCH (RBC) [Entitic mass] 30.0 26.0-34.0 pG Normal 08-11 [facility] (89436) MCHC (RBC) [Mass/Vol] 34.2 30.5-36.0 g/dL Normal 08-12-19 20 [facility] (50403) MCV (RBC) [Entitic vol] 87.9 80.0-100.0 fL Normal 08-11 [facility] (30270) Platelet mean volume 10.9 9.0-12.7 fL Normal 0 [facility] (Bld) [Entitic vol] Moon (64091) Platelets (Bld) [#/Vol] 270 150-400 k/uL Normal 2019 [facility] (97845) RBC (Bld) [#/Vol] 4.46 3.90-5.20 m/uL Normal 08-12-2019 [facility] (40694) WBC (Bld) [#/Vol] 12.03 3.70-11.00 k/uL High 08-12-2019 [facility] (84266) ast on 2019-08-12 AST [Catalytic activity/Vol] 16 13-35 U/L Normal 0 08-12-2019 [facility] (26257) alt on 2019-08-12 ALT [Catalytic activity/Vol] 13 7-38 U/L Normal 0 08-12-2019 [facility] (13685) cnpn on 2019-07-21 CNPN Telephone (WOOB) Normal 07-21-2019 Cl stalin [facility] ERMIAS EGAN ([id number]) 1995 [facility] Date Time Provider Department () 07/21/19 [...] Vomiting Date Reviewed: 07/08/2019 Reviewed by: Tiffanie Dya - Fully Assessed Reason for Visit: OB [...] 07/21/19 progress on 2019-06 PROGRESS HNO ID: [id number] Normal 07-08-2019 Moon Author: Ligia Mcmahon) [facility] Service: ? Moon Author Type: Propagation Worker ([id number]) Type: Progress Notes Filed: 07/08/2019 3:34 PM [...] community (this info rmation is from the [facility] web page): ? Wash hands often with soap and water for at least 20 secon ds; dry hands with a clean towel or air dry hands. ? Use alcohol-based hand maintenance data analyst when soap and water are u navailable. [...] that you do not come to any [facility] facility withou t calling our office or speaking to a provider using a virtual visit using [facility] 1SDK? Online. You will be evaluated to determ [...] design ated support person. In addition, throughout [facility]'s [facility], the following visitation policy is in effect: [...] must wash their hands, or use hand maintenance data analyst, bef ore and after leaving rooms and hospital buildings. Additional information can be found on the CDC and [facility] web sites: https://www.cdc.gov/coronavirus/2019-nCoV/index.html https://[facility].org/coronavirus progress on 2019-06 PROGRESS HNO ID: [id number] Normal 06-22-2019 [facility] Author: Catie Morgan Ma Moon ([id number]) Service: ? Author Type: ? Type: Progress [...] severely ill: Yes Patient denies history of Guillain-[place] Syndrome (a severe paralytic illness): Yes Tdap Adacel injection was given without incident. See immunizations for details of immunizations administered today. VIS sheet provided: Yes Provider Tiffanie Day CNM was present in office at time of injection. Catie Morgan Ma cbc and differential on 2019-06-08 Abs Baso <0.03 <0.11 Normal 06-08-2019 [facility] (64825) Comment: Performed By: #### CBC, HIV1 2C, RUBIGG, SYPHTX, AHCV, HBSAG #### [facility] [address] [place], [place] [address] Abs Sarpy 0.53 <0.87 k/uL Normal 06-08-2019 [facility] (16269) Comment: Performed By: #### CBC, HIV1 2C, RUBIGG, SYPHTX, AHCV, HBSAG #### [facility] Laboratorie s [address] [place], [place] [address] Abs Neut 8.53 1.45-7.50 k/uL High 06-08-2019 [facility] (03028) Comment: Performed By: #### CBC, HIV1 2C, RUBIGG, SYPHTX, AHCV, HBSAG #### [facility] Laboratorie [address] [place], [place] [address] Absolute nRBC <0.01 <0.01 Normal 06-08-2019 [facility] (93064) Comment: Performed By: #### CBC, HIV1 2C, RUBIGG, SYPHTX, AHCV, HBSAG #### [facility] Laboratorie s [address] [place], [place] [address] Basophils/100 WBC (Bld) 0.1 % Normal 2019 [facility] (15523) Comment: Performed By: #### CBC, HIV1 2C, RUBIGG, SYPHTX, AHCV, HBSAG #### [place] [address] [place] [address] DTYPE Auto Diff Normal 06-08-2019 [facility] (77561) Comment: Performed By: #### CBC, HIV1 2C, RUBIGG, SYPHTX, AHCV, HBSAG #### [address] [address] Eosinophils (Bld) [#/Vol] 0.13 <0.46 k/uL Normal 05-23 [facility] (52346) Comment: Performed By: #### CBC, HIV1 2C, RUBIGG, SYPHTX, AHCV, HBSAG #### [place] [address] [place] [address] Eosinophils/100 WBC (Bld) 1.2 % Normal 05-23 [facility] (96345) Comment: Performed By: #### CBC, HIV1 2C, RUBIGG, SYPHTX, AHCV, HBSAG #### [place] [address] Erythrocyte distribution 13.4 11.5-15.0 % Normal 06-08 [facility] width (RBC) [Ratio] Moon (41666) Comment: Performed By: #### CBC, HIV1 2C, RUBIGG, SYPHTX, AHCV, HBSAG #### [facility] [address] [place], [place] [address] Hematocrit (Bld) [Volume 36.7 36.0-46.0 % Normal 06-08 [facility] (76603[facility] Comment: Performed By: #### CBC, HIV1 2C, RUBIGG, SYPHTX, AHCV, HBSAG #### [facility] Laboratorie s [address] [place], [place] [address] Hemoglobin (Bld) 11.8 11.5-15.5 g/dL Normal 06-08-2019 [facility] [Mass/Vol] Moon (31525) Comment: Performed By: #### CBC, HIV1 2C, RUBIGG, SYPHTX, AHCV, HBSAG #### [facility] Laboratorie s [address] [place] [address] Lymphocytes (Bld) [#/Vol] 1.72 1.00-4.00 k/uL Normal 05-23 [facility] (30774) Comment: Performed By: #### CBC, HIV1 2C, RUBIGG, SYPHTX, AHCV, HBSAG #### [facility] Laboratorie s [address] [place] [address] Lymphocytes/100 WBC (Bld) 15.8 % Normal 05-23 [facility] (99483) Comment: Performed By: #### CBC, HIV1 2C, RUBIGG, SYPHTX, AHCV, HBSAG #### [address] [address] MCH (RBC) [Entitic mass] 29.2 26.0-34.0 pG Normal 06-08 [facility] (42998) Comment: Performed By: #### CBC, HIV1 2C, RUBIGG, SYPHTX, AHCV, HBSAG #### [facility] Laboratorie s [facility] [place], [place] [address] MCHC (RBC) [Mass/Vol] 32.2 30.5-36.0 g/dL Normal 06-08-19 [facility] (37163) Comment: Performed By: #### CBC, HIV1 2C, RUBIGG, SYPHTX, AHCV, HBSAG #### [facility] Laboratorie s [address] [place], [place] [address] MCV (RBC) [Entitic vol] 90.8 80.0-100.0 fL Normal 06-08 [facility] (09001) Comment: Performed By: #### CBC, HIV1 2C, RUBIGG, SYPHTX, AHCV, HBSAG #### [facility] [place] [address] [place] [address] Monocytes/100 WBC (Bld) 4.9 % Normal 2019 [facility] (93805) Comment: Performed By: #### CBC, HIV1 2C, RUBIGG, SYPHTX, AHCV, HBSAG #### [address] [address] Neutrophils/100 WBC (Bld) 78.0 % Normal 05-23 [facility] (96133) Comment: Performed By: #### CBC, HIV1 2C, RUBIGG, SYPHTX, AHCV, HBSAG #### [facility] Laboratorie s [address] [place] [address] NRBCs 0.0 0 /100 WBC Normal 06-08-2019 [facility] (89885) Comment: Performed By: #### CBC, HIV1 2C, RUBIGG, SYPHTX, AHCV, HBSAG #### [place] [address] Platelet mean volume 10.7 9.0-12.7 fL Normal 0 [facility] (Bld) [Entitic vol] Moon ([id number]) Comment: Performed By: #### CBC, HIV1 2C, RUBIGG, SYPHTX, AHCV, HBSAG #### [facility] Laboratorie [facility] [place], [place] [address] Platelets (Bld) [#/Vol] 268 150-400 k/uL Normal 2019 [facility] ([id number]) Comment: Performed By: #### CBC, HIV1 2C, RUBIGG, SYPHTX, AHCV, HBSAG #### [facility] Laboratorie s [address] [place], [place] [id number] RBC (Bld) [#/Vol] 4.04 3.90-5.20 m/uL Normal 06-08-2019 [facility] ([id number]) Comment: Performed By: #### CBC, HIV1 2C, RUBIGG, SYPHTX, AHCV, HBSAG #### [facility] Laboratorie s [address] [place], [place] [address] WBC (Bld) [#/Vol] 10.92 3.70-11.00 k/uL Normal 06-08-2019 [facility] ([id number]) Comment: Performed By: #### CBC, HIV1 2C, RUBIGG, SYPHTX, AHCV, HBSAG #### [facility] Laboratorie s [address] [place], [place] [address] 50g, 1hr gest. gscrn on 2019-06-08 Glucose [Mass/Vol] 113 74-134 mg/dL Normal 06-08-2019 [facility] ([id number]) Comment: Result Comment: [place] Con lee of Obstetricians and Gynecologists (María Elena/Emma) [facility] state a gestational diabetes mellitus positive screen is made, in women not previously diagnosed with overt diabetes, when the 1 hr plas ma glucose level is equal to or above 140 mg/dL. The [facility] Drill Press Set Up Operator Radial and [facility] [place] recommends a 135 mg/dL cutoff. Performed By: #### CBC, HIV1 2C, RUBIGG, SYPHTX, AHCV, HBSAG #### [facility] Laboratorie s [address] [place], [place] [address] progress on 2019-05 PROGRESS HNO ID: [id number] Normal 06-05-2019 [facility] Author: Haylie Gutierrez ([id number]) Service: ? Author Type: Physician Type: Progress [...] TSH Qn 0.794 0.270-4.200 uU/mL Normal 05-05-2019 [facility] ([id number]) Comment: Result Comment: If the patie nt [...] et al. 2017 Guide lines of the [place] Thyroid Association for the Diagnosis and Management of Thyroid Disease during and the . Thyroid, 2017:27:3:315-389. Performed By: #### TSH ####C [facility] [place], [place] [phone] progress on 2019-03 PROGRESS HNO ID: [id number] Normal 04-19-2019 [facility] Author: Jesse Farfan ([id number]) Service: ? Author Type: Physician Type: Progress Notes Filed: 04/19/2019 8:31 AM Note Text: Please see ultrasound report for details of this visit. Jesse Farfan M.D. trichomonas prep on 2019-03-26 Trichomonas Prep Sp. Request/Comment: - Swab Johanna l 03-26-2019 [facility] Smear Result - Negative for Trichomonas vaginalis antigen This test was developed and its performance characteristics determined by [facility]'s [facility] Moon ([id number]) [place] (RT PLOH). It has not been cleared or approved by the FDA. RT PLMI is regulated under CLIA as qualified to perform high complexity testing. This test is used for clinical purposes. It should not be regarded as investigational or for research. Comment: Performed By: #### TRICHO ## ##[id number] [place], [place] [phone]- [phone] cnco on 2019-03-26 CNCO Letter Text Normal 03-26-2019 [facility] ([id number]) bact/cand vag grm st on 2019-03-26 Bact/Cand Vag Sp. Request/Comment: - Swab Critical ly 03-26-[address] abnormal Clinic Smear Result - BACTERIAL VAG INOSIS RESULT: Stain results consistent with normal vaginal manan. No Yeast observed Moderate Polymorphonuclear leukocytes Moderate --> ABNORMAL ALERT Gram negative bacilli --> ABNORMAL ALERT Moon ([id number]) Comment: Performed By: #### BVCNSM ## ##[address] [phone]- [phone] cnco on 2019-03-24 CNCO Clinical report posted in error Normal 03-24-2019 [facility] ([id number]) Void Comment: error Letter Text Letter Text urine culture on 10-03-29 Bacteria Sp. Request/Comment: - Specimen received in preservative Critically 03-20-2019 Moon identified Cx Nom abnormal Cl inic (U) Culture Result - <10,000 CFU /ml Streptococcus agalactiae (Group B streptococcus) --> ABNORMAL ALERT No further workup --> ABNORMAL ALERT Moon ([id number]) Comment: Performed By: #### URCUL ### #[address] [phone]- [phone] type and scr,prenatl on 2019-03-20 ABO/RH(D) A POSITIVE Normal 03-20-2019 [facility] (88574) Comment: Performed By: #### TSPN #### [facility] Laboratorie s [address] [place], [place] [phone] toxicology screen,ur on 2019-03-20 Amphetamines, Urine Negative Negative Normal 03-20-2019 [facility] ([id number]) Comment: Result Comment: Cutoff thres hold at 1000 ng/mL. Performed By: #### UTOX2 ### # [facility] [address] [address] Barbiturates, Urine Negative Negative Normal 03-20-2019 [facility] ([id number]) Comment: Result Comment: Cutoff thres hold at 200 ng/mL. Performed By: #### UTOX2 ### # [facility] [address] [place] [address] Benzodiazepines, Ur Negative Negative Normal 03-20-2019 [facility] ([id number]) Comment: Result Comment: Cutoff thres hold at 200 ng/mL. Performed By: #### UTOX2 ### # [facility] [address] [place] [address] Cannabinoids, Urine Negative Negative Normal 03-20-2019 [facility] ([id number]) Comment: Result Comment: Cutoff thres hold at 50 ng/mL. Performed By: #### UTOX2 ### # [facility] [address] [place] [address] Cocaine, Urine Negative Negative Normal 03-20-2019 [facility] ([id number]) Comment: Result Comment: Cutoff thres hold at 300 ng/mL. Performed By: #### UTOX2 ### # [facility] [address] [place] 0704695 Ethanol, Urine <11 <11 Normal 03-20-2019 [facility] ([id number]) Comment: Performed By: #### UTOX2 ### # [facility] [address] [place] 0704695 Opiates, Urine Negative Negative Normal 03-20-2019 [facility] ([id number]) Comment: Result Comment: Cutoff thres hold at 300 ng/mL. Performed By: #### UTOX2 ### # [facility] [address] [place] 0704695 Oxycodone, Urine Negative Negative Normal 03-20-2019 Cl [facility] ([id number]) Comment: Result Comment: Cutoff thres hold at 100 ng/mL. Comment: Immunoassay screen only. Glost Kiln Operator ss reactivity with other substances can occur [...] on the same specimen through Client Services ([phone]) if contacted within 48 hours of initial testing. [1]Substance Abuse and [facility] Services Administration (2012). Clinical Drug Testing in Primary Care Technical Assistance Publication Series 32. Department of Health and Human Services, [place], p.10. Performed By: #### UTOX2 ### # [facility] Laboratorie s [address] [place] [address] Phencyclidine, Urine Negative Negative Normal 9 [facility] ([id number]) Comment: Result Comment: Cutoff thres hold at 25 ng/mL. Performed By: #### UTOX2 ### # [facility] Laboratorie s [address] [place] [address] syphilis ttl w/reflx on 2019-03-20 Syphilis Interp Cannot exclude recent Normal [facility] Treponemal infection if Moon (66607) specimen collected within 7 to 10 days after appearance of suspect lesions or 2 to 3 weeks after an exposure. Clinical correlation is required. Comment: Performed By: #### CBC, HIV1 2C, RUBIGG, SYPHTX, AHCV, HBSAG #### [facility] Laboratorie s [address] [place], [place] [id number] Syphilis Screen Non Reactive Non Reactive Normal 03-20-20 19 [facility] Rslt Moon ([id number]) Comment: Performed By: #### CBC, HIV1 2C, RUBIGG, SYPHTX, AHCV, HBSAG #### [facility] Laboratorie s [address] [place] [phone] rubella igg antibody on 2019-03-20 Rubella IgG Ab 1.30 Index Value Normal 03-20-2019 [facility] (46964) Comment: Result Comment: Index values are interpreted as follows: Negative specimens <0.90 Equivocol specimens 0.90 to 0.99 Positive specimens >0.99 The magnitude of the measure d result is not indicative of the amount of antibody present. Performed By: #### CBC, HIV1 2C, RUBIGG, SYPHTX, AHCV, HBSAG #### [facility] Laboratorie s [address] [place] [phone] Rubella IgG Ab, Positive Negative Critically abnormal 02-21 [facility] (28463) Comment: Result Comment: Sample is co nsidered positive for IgG antibodies to rubella virus. A positive result indicates previous exposure to Rubella virus or vaccination. Performed By: #### CBC, HIV1 2C, RUBIGG, SYPHTX, AHCV, HBSAG #### [facility] Laboratorie s [address] [place] [address] progress on 2019-02 PROGRESS HNO ID: [id number] Normal 03-20-2019 [facility] Author: Roland Perkins Moon ([id number]) Service: ? Author Type: Physician Type: Progress Notes Filed: 03/20/2019 4:47 PM Note Text: INITIAL OB ASSESSMENT OB Provider: Roland Perkins DO HPI: Ermias Egan is a 23 year old female here to [facility] Obst[facility]. 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 No pertinent surgical history. Current Outpatient Medications on File Prior to Visit Medication Sig - Vgechvdy-Hj-Dow-Fe-FA ( VITAMIN) tab Take 1 tablet by mouth. - levothyroxine sodium (LEVOTHYROXINE ORAL) Take by mouth. - metformin HCl (METFORMIN ORAL) Take by mouth. - norgestimate-ethinyl estradiol (SPRINTEC, 28, ORAL) Take b y mouth. - Gxfmbbuefnyomqr-Hfawabpnj-PV (BROMFED DM) 2-30-10 mg/5 mL syrup Take [...] 4-6 wks Depression/anxiety: Goes to counseling at [facility] in [facility]. Her counselor had prescribed Zoloft. She did not take it. Mood s table. Reviewed r/b/a of Zoloft in . Records of dating US scanned into chart Follow up in 4 weeks or sooner prn. Roland Perkins, DO [id number] ag +hiv12 ab on 2019-03-20 HIV 12 Ag/Ab Non Reactive Non Reactive Normal 03-20-2019 [facility] ([id number]) Comment: Performed By: #### CBC, HIV1 2C, RUBIGG, SYPHTX, AHCV, HBSAG #### [facility] Laboratorie s [address] [place], [place] [address] HIV-1/2 Antibody Normal 03-20-2019 Cl [facility] (03843) Comment: Result Comment: Test Not Ind icated Negative No evidence of HIV-1 or HIV- 2 infection. Should recent infection be suspected, repeat testing may be considered 2-3 weeks after this draw. HIV Information: [place] Rev. C ode 3701.243(E): This information has [...] HIV1 2C, RUBIGG, SYPHTX, AHCV, HBSAG #### [facility] [address] [place] [phone] hepatitis c ab ia o n 2019-03-20 Hepatitis C Ab IA Negative Negative Normal 03-20-2019 [facility] (43265) Comment: Performed By: #### CBC, HIV1 2C, RUBIGG, SYPHTX, AHCV, HBSAG #### [place] [address] hepatitis b surf. ag on 2019-03-20 Hepatitis B Surf. Ag Negative Negative Normal 9 [facility] (19746) Comment: Performed By: #### CBC, HIV1 2C, RUBIGG, SYPHTX, AHCV, HBSAG #### [place] [phone] gc/chlamydia amplif on 2019-03-20 Chlamydia Amplif Negative for Chlamydia Normal 03-20-2019 [facility] trachomatis by Ludwin sandhu (51407) amplification. Comment: Performed By: #### GCCT #### [place] [phone] GC Amplification Negative for Neisseria Normal 03-20-2019 [facility] gonorrhoeae by Ludwin sandhu (82991) amplification. Comment: Performed By: #### GCCT #### [address] [phone] GC/Chlam Amp Source Cervix Normal 03-20-2019 [facility] (09698) Comment: Performed By: #### GCCT #### [address] [place], [place] [phone] cytology on 2019-02 CYTOLOGY Specimen originated from [facility] Normal 03-20-2019 Moon Specimen #: [id number] [facility] Submitting Physician: ROLAND PERKINS DO Moon SPECIMEN SUBMITTED ( [id number]) A: CERVICAL, SCREENING, FLUID FINAL DIAGNOSIS A. [...] STAINS A: CERVICAL, SCREENING, FLUID THIN PREP SUPERVISOR [employer]AK[employer]IT[employer] Jimmy Carter M.D., Programming Intern Date of Report: 03/25/2019 Date of Procedure: 03/20/2019 Date of Receipt: 03/23/2019 Submitted by: ROLAND PERKINS DO Location: [facility] Diagnostic interpretation performed at [facility], [address] [facility] [address]. CLIA Number: [id number] The Pap Smear is a screening test for cervical cancer. False negative results occur with all screening tests, emphasizing the need for rescreening at recommended intervals, and clinical correlati on. cbc on 2019-03-20 Absolute nRBC <0.01 <0.01 Normal 03-20-2019 [facility] ([id number]) Comment: Performed By: #### CBC, HIV1 2C, RUBIGG, SYPHTX, AHCV, HBSAG #### [facility] Laboratorie s [address] [place], [place] [address] Erythrocyte distribution 13.6 11.5-15.0 % Normal 03-20 [facility] width (RBC) [Ratio] Moon (28402) Comment: Performed By: #### CBC, HIV1 2C, RUBIGG, SYPHTX, AHCV, HBSAG #### [facility] Laboratorie s [address] [place] [address] Hematocrit (Bld) [Volume 38.2 36.0-46.0 % Normal 03-20 [facility] fraction] Moon ([id number]) Comment: Performed By: #### CBC, HIV1 2C, RUBIGG, SYPHTX, AHCV, HBSAG #### [facility] Laboratorie s [address] [place] [address] Hemoglobin (Bld) 12.8 11.5-15.5 g/dL Normal 03-20-2019 [facility] [Mass/Vol] Moon (55208) Comment: Performed By: #### CBC, HIV1 2C, RUBIGG, SYPHTX, AHCV, HBSAG #### [facility] Laboratorie s [address] [place] [address] MCH (RBC) [Entitic mass] 29.7 26.0-34.0 pG Normal 03-20 [facility] (15750) Comment: Performed By: #### CBC, HIV1 2C, RUBIGG, SYPHTX, AHCV, HBSAG #### [facility] Laboratorie s [address] [place], [place] [address] MCHC (RBC) [Mass/Vol] 33.5 30.5-36.0 g/dL Normal 03-20-20 19 [facility] (67705) Comment: Performed By: #### CBC, HIV1 2C, RUBIGG, SYPHTX, AHCV, HBSAG #### [facility] Laboratorie s [address] [place], [place] [address] MCV (RBC) [Entitic vol] 88.6 80.0-100.0 fL Normal 03-20 [facility] (56994) Comment: Performed By: #### CBC, HIV1 2C, RUBIGG, SYPHTX, AHCV, HBSAG #### [facility] [address] [place] [address] Platelet mean volume 10.7 9.0-12.7 fL Normal 9 [facility] (Bld) [Entitic vol] Moon (10307) Comment: Performed By: #### CBC, HIV1 2C, RUBIGG, SYPHTX, AHCV, HBSAG #### [place] [address] Platelets (Bld) [#/Vol] 276 150-400 k/uL Normal 2018 [facility] (79291) Comment: Performed By: #### CBC, HIV1 2C, RUBIGG, SYPHTX, AHCV, HBSAG #### [place] [address] [place] [address] RBC (Bld) [#/Vol] 4.31 3.90-5.20 m/uL Normal 03-20-2019 [facility] (50520) Comment: Performed By: #### CBC, HIV1 2C, RUBIGG, SYPHTX, AHCV, HBSAG #### [place] [address] [place] [address] WBC (Bld) [#/Vol] 13.41 3.70-11.00 k/uL High 03-20-2019 [facility] (47072) Comment: Performed By: #### CBC, HIV1 2C, RUBIGG, SYPHTX, AHCV, HBSAG #### [facility] Laboratorie [address] [place], [place] [address] tsh on 2019-03-18 TSH Qn 1.04 0.44 - 3.98 mIU/L Normal 03-18-2019 [facility] (33642) Comment: Result Comment: TSH testing is performed using different testing methodology at [facility] than at other [facility]. Direct res ult comparisons should only be made within the same method. Performed By: #### TSH2 #### [address] [place] [address] cnnurse on CNNURSE Nurse Visit (WOOB) Normal 03-12-2019 Moon ERMIAS Jernigan ([id number]) 1995 [facility] Date Time Provider Department ([id number]) 03/12/19 2:00 PM NURSE PNOB [facility] WSTR WOOB During your visit today, we recorded the following informati on about you: Last Period 12/03/18 Lit Blackwood RN 03/12/2019 2:48 PM Signed SEQUENTIAL SCREENINGS The [facility] offers sequential s creenings for women who [...] require an appointment with our ultraso und natural gas technician. This is not an ultrasound performed [...] abo ve symptoms, contact our office at [phone] and ask to speak with a nurse. After hours, you can call doctors registry at [phone] O R call [facility] at [phone] and ask to have the doctor honey producer paged. If you consider this an emergency, [...] treatment is particularly effective in young patients-the [facility] Cord Blood Bank reports a 70 [...] $95. The advantage of using a elvira Wyl[employer] bank is that your sample is saved [...] issues. What do the experts say? The [place] Academy [employer] Pediatrics encourages philanth [facility] blood banking in public ochoa, but only [...] taken that the baby needs at the [facility]. The nurse, attorney recruiter, or physician will then label the samples, [...] would arrange for safe transfer to another [facility] if the need arose. YOU MUST MAKE ARRANGEMENTS AHEAD OF TIME! Public cord-blood ochoa--DONATION: [employer] [phone] [facility]'s Placental Blood Program, [facility] Umbilical Cord Blood Bank, Private cord-blood ochoa--SAVING FOR YOUR OWN USE: [employer] [place], (I think this is the least expensive) [employer] [phone] [employer] [facility], (797) [employer] [place] Cord Blood Bank, [phone]-CORD Cells, [phone] [place] Cry[facility], Cord Blood Registry, ([phone]) [facility] [place], An Internet search may provide you with additional listings. Lit Blackwood RN 03/12/2019 4:32 PM Signed Patient is here today with her parents and the FOB. Jhon falk is transferring care from Dr Raymond in [place]. She stat es she was last seen 02/18/2019 in his office. She signed a release of records form for her records to be transferred here yesterday.She has a his tory of hypothyroidism diagnosed at age 12. She has been followed by [place] [facility]. She states varinder t she last had thyroid labs drawn 3 weeks ago and h as a follow up appointment with her Check Out Clerk 03/2019. Pt has a history of depression and anxiety diagnose d in 2017. She never took any medication to treat it . Does att end counseling at [facility] in [place]. Discussed increased risks of depression during p [...] instructions from your clinician: SEQUENTIAL SCREENINGS The [facility] offers sequential screenings for women who are [...] require an appointment with our ultras ound natural gas technician. This is not an ultrasound performed [...] the above symptoms, contact our office at [phone] and ask to speak with a nurse. After hours, you can call doctors registry at [phone] O R call [facility] at [phone] and ask to have the doctor honey producer paged. If you consider this an emergency, [...] some cancers and other illnesses. While the [facility] process of collecting cord blood is straightforward, [...] treatment is particularly effective in young patients-the [facility] Cord Blood Bank reports a 70 percent [...] baby's stem cells is cost. In a [facility] blood bank, the initial costs run [...] issues. What do the experts say? The [place] Academy of Pediatrics encourages philanthropic blood banking [...] baby needs at the moment. The nurse, attorney recruiter, or physician will then label the samples [...] outages and bankruptcies potentially could threaten an [employer] organization, but so far none have been reported. It is to b e hoped that the scientists in these ochoa would arrange for safe transfe r to another facility if the need arose. YOU MUST MAKE ARRANGEMENTS AHEAD OF TIME! Public cord-blood ochoa--DONATION: [employer] [phone] [facility]'s Placental Blood Program, [phone] [facility] Umbilical Cord Blood Bank, Private cord-blood ochoa--SAVING FOR YOUR OWN USE: [employer], (I think this is the least expensive) [employer] [phone] [employer], (206) [employer] [place] Cord Blood Bank, [phone]-CORD Cells, ( [phone]-BABY [place] Cryobank, Cord Blood Registry, ([phone]) CORDBLHighlands Medical Centerco, An Internet search may provide you with additional listings. Disposition: Return in about 8 days (around 03/20/2019) for New OB with Dr Perkins. 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 on 2019-02-18 ONLINE PROGRAM COORDINATOR - Office Chief Complaint Normal 02-19-20 19 Touchworks Visit ([id number]) Patient referred here by her PCP for [...] 1 TABLET DAILY DIRECTED; Therapy: 20Jun2018 to (Evaluate:[id number]) Requested for: ; Last Rx:20Jun2018 Ordered Rx By: Olga Cordero; Disp ense: 30 Days ; #:30 Tablet; Refill: 5;For: Acquired hypothyroidism; NANCY = N; Verified Transmission to [facility]; Last Updated By: Gertrude [...] PM Vitals Vital Signs Recorded: 18Feb2019 02:10PM Pxhjesuu953 Nsyjvavjd28 Height4 ft 11 in Vdkthy84.4 kg BMI Ddsasbxwuj06.68 BSA Calculated1.69 [id number] Physical Exam PHYSICAL EXAMINATION: Well-developed, well nourish [...] EST (Author) well woman visit on 2019-02-03 [facility] Woman Chief Complaint Normal 02-03-2019 Touchworks Visit ([id number]) pap and breast exam History of Present [...] Vital Signs Recorded: 03Feb2019 01:30PM Heart Rate72 Fgazvsjv495, LUE Dhewpiguc10, LUE Height4 ft 11 in Xeidjb302 lb BMI Ziskiouprj04.92 BSA Calculated1.69 Physical Exam Constitutional General appearance: [...] and affect: Normal. Results/Data IO HCG, Urine [id number] 02:14PMBeOlga hooker exp 11/19/2019 medline [id number] Test NameResultFlagReference IO Urine hCGPositive Diagnoses/Problems Hypothyroidism [...] Irregular periods; NANCY = N; Sent To: [facility]; Last Updated By: Olga Berumen; 02/03/2019 2:22:12 PM IO HCG, Urine Test ; Status:Resulted - Requires Verification,Retrospective Authorization; Done: 03Feb2019 02:14PM Performed:In Office; Due:; Last Updated By:Gertrude Hong; 02/03/2019 2:17:57 PM;Ordered; For:Irregular periods; Ordered By:Olga Berumen; Screening for cervical cancer PAP SUPERVISOR [employer], Cytology; Status:Hold For - Specimen/Data Collectio n; Requested for:03Feb2019; Perform:[facility] Cytology; Due:;Ordered; For:Screening for cervical cancer; Ordered [...] need to see endo as well as SUPERVISOR [employer]ITATION. Stop control pill and will need to start brianne min. She notes she is no longer o n the zoloft and not taking the metformin regularly either. Signatures Electronically signed by : CAITLIN Somers; Feb 03 2019 2:24PM EST (Author) [facility] cytology on 201 12-30-14 [facility] Cytology Date of Procedure: 02/03/2019 Normal 02-03-2019 [facility] Pathologist: [facility], [facility] Date Reported: 02/09/2019 ([id number]) Date Received: 02/04/2019 Submitting Physician: OLGA RICK [...] test interpretation above. This specimen has been lashell zed by the ToonimoPrep Imaging System ([employer] an automated imaging and review system, which assists the la boratory in evaluating cells on ThinPrep Pap tests. Followin g automated imaging, selected coleman from every slide were reviewed by a flight crew scheduler and/or pathologist. Electronically Signed Out By [facility] [facility], Cytology//NCK By the signature on this [...] only Comment: Performed By: #### C #### [facility] Cytology [address] [facility] [address] tsh on 2019-02-03 TSH Qn 3.19 0.44 - 3.98 mIU/L Normal 02-03-2019 [facility] (05567) Comment: Result Comment: TSH testing is performed using different testing methodology at [facility] than at other [facility]. Direct res ult comparisons should only be made within the same method. Performed By: #### TSH2 #### [facility] [address] [place] [address] tsh - thyroid stimulating hormone, serum on 2019-02-03 TSH Qn 3.19 See Below {mIU/L} 02-03-2019 Rustam dodd [facility] (85287) Comment: Reference Range: 0.44 - 3.98 TSH testing is performed using different testing methodology at [facility] than at other system hospitals. Direct result com parisons should only be made within the same method. thyroxine,free on 2 THYROXINE,FREE 0.83 0.78 - 1.48 ng/dL Normal 02-03-2019 [facility] (91283) Comment: Result Comment: Thyroxine Fr ee testing is performed using different testing methodology at [facility] than at other [facility]. Direct res ult comparisons should only be made within the same method. Patients receiving more than 5 mg/day of biotin may have interference in test results. A sample sh ould be taken no sooner than eight hours after previous dose. Performed By: #### [id number] ### # [facility] [address] [place] [address] t4 - free thyroxine, serum on 2019-02-03 Free T4 [Mass/Vol] 0.83 See Below ng/dL 02-03-2019 [facility] (79841) Comment: Reference Range: 0.78 - 1.48 Thyroxine Free testing is performed using different testing methodolog y at [facility] than at other [facility]. Direct res ult comparisons should only be made within the same method. Patients receiv ing more than 5 mg/day of biotin may have interference in test results . A sample should be taken no sooner than eight hours after previous dose. [facility] cytology on 2019-02-03 [facility] Date of Procedure: 02/03/2019 Normal 02-03-2019 [facility] Pathologist: [facility], Cytology [facility] Date Reported: 02/11/2019 ([id number]) Date Received: 02/04/2019 Submitting Physician: OLGA RICK CNP Attending Physician: OLGA RICK CNP FINAL CYTOLOGICAL INTERPRETATION Cytology Report issued by [facility] will follow. Electronically Signed Out By [facility], Cytology//TFP By the signature on this [...] 2019-02-03 HCG ( test) Ql (U) Positive [facility] (42883) Comment: exp 11/19/2019 medline [id number] hcg,serum qualitative on 2019-02-03 HCG,SERUM QUALITATIVE POSITIVE Negative Abnormal 02-04-20 19 [facility] (00 000) Comment: Performed By: #### HCGS #### [facility] [address] [place] [address] hcg, serum - qualitative on 2019-02-03 HCG ( test) Ql POSITIVE Negative Abnormal 2018 [facility] ( 64891) No panel information on 2019-02-03 Cytology report 02-03-2019 [facility] Cyto stain.thin Prac tana (13229) prep Doc (Cvx/Vag) Date of 02-03-2019 [facility] Procedure: 02/03/2019 Practice ([id number]) Pathologist: [facility], CytologyDate Reported: 02/11/2019Date Received: 02/04/2019Submitting Physician: OLGA RICK CNPAttending Physician: OLGA RICK CNP FINAL CYTOLOGICAL INTERPRETATIONCytology [facility].Electronically Signed Out By [facility], Cytology//TFP By the signature on this report, [...] Reflex for ASC-US only - Include HPV [id number]. IMAGED THINPREP PAP, SCREENING: Source of SpecimenA: IMAGED THINPREP PAP, SCREENING Date of 02-03-2019 [facility] Procedure: 02/03/2019 Practice ([id number]) Pathologist: [facility], CytologyDate Reported: 02/09/2019Date Received: 02/04/2019Submitting Physician: OLGA [...] This specimen has been analyzed by the [employer] System ([employer]an automated imaging and review system, which assists the laboratory inevaluating cells on ThinPrep Pap tests. Following automated imaging, selectedfields from every slide were reviewed by a flight crew scheduler and/or pathologist.Electronically Signed Out By [facility], Cytology//NCK By the signature on this report, [...] Insulin Lvl 21.5 2.6-24.9 mcIU/mL Normal 06-30-[address] [facility] (68061) Comment: Result Comment: Performed At : [facility] [id number] Sang Chino PhD Ph:[phone] Performed By: #### [id number] #### [facility] [employer] [address] [place] [address] testost total on 08-07-09 Testoster Tot 27 8-48 ng/dL Normal 2018 [facility] (72662) Comment: Result Comment: Performed At : [facility] [address] [place], [place] [id number] Sang Chino PhD Ph:[phone] Performed By: #### [id number] #### WIL[facility]ERT [employer] [facility] [place] [address] lh on 2018 LH 16.5 mIU/mL Normal 2018 [facility] (91011) Comment: Result Comment: Adult Female : Follicular phase 2.4 - 12.6 Ovulation phase 14.0 - 95.6 Luteal phase 1.0 - 11.4 Postmenopausal 7.7 - 58.5 Performed At: [facility] [address] [place], [place] [id number] Sang Chino PhD Ph:[phone] Performed By: #### [id number] #### W[facility] [employer] [address] [place] [address] fsh on 2018 FSH 6.8 mIU/mL Normal 2018 [facility] (20601) Comment: Result Comment: Adult Female : Follicular phase 3.5 - 12.5 Ovulation phase 4.7 - 21.5 Luteal phase 1.7 - 7.7 Postmenopausal 25.8 - 134.8 Performed At: [facility] [address] [place] [id number] Sang Chino PhD Ph:[phone] Performed By: #### [id number] #### WILBERT [employer] [place] [address] lipid profile on 08-07-08 Cholesterol [Mass/Vol] 176 0-189 mg/dL Normal 019 [facility] (00 000) Comment: Result Comment: TOTAL CHOLEE STEROL: <200 NORMAL 200 - 239 BORDERLINE HIGH >240 HIGH Performed By: #### [id number] #### [facility] [employer] [facility] [place] [address] Cholesterol in HDL [Mass/Vol] 39 >=45 mg/dL Low 06-28-2018 [facility] (00 000) Comment: Performed By: #### [id number] #### WILBERT [employer] [facility] [place] [address] Cholesterol in LDL 102 0-130 mg/dL Normal 06-28-2018 [facility] [Mass/Vol] [facility] Sy stem (37884) Comment: Result Comment: <100 OPTIMAL 100-129 NEAR / ABOVE OPTIMAL 130-159 BORDERLINE HIGH 160-189 HIGH >190 VERY HIGH CALC LDL NOT VALID WHEN TRIG LYCERIDE IS >400 MG/DL Performed By: #### [id number] #### [facility] [employer] [address] [place] [address] Cholesterol in VLDL 35 0-40 mg/dL Normal 06-28-2018 [facility] [Mass/Vol] System (0 0000) Comment: Performed By: #### [id number] #### [facility] [employer] [address] [place] [address] Triglyceride [Mass/Vol] 177 0-149 mg/dL High 2018 [facility] (00 000) Comment: Result Comment: AGE DESIRABL E BORDERLINE HIGH 91 D - 9 Y 0 - 74 75 - 99 > 100 10 - 19 Y 0 - 89 90 - 129 > 130 20 -24 Y 0 - 114 115 - 149 > 150 > 25 0 - 149 150 - 199 200 - 499 Performed By: #### [id number] #### [facility] [employer] [address] [place] [address] hgba1c on 9 HbA1c (Bld) [Mass fraction] 5.2 4.0-6.3 % Normal [facility] (00 000) Comment: Performed By: #### [id number] #### [facility] [employer] [address] [place] [address] c urine on C Urine Final Report: Rare Normal Normal 05-23 [facility] skin manan isolated System (69878) Comment: Performed By: #### [id number] #### [facility] [employer] [address] [place] [address] ua complete on 2018 Color (U) Yellow Yellow Normal 06-04-2018 [facility] (66765) Comment: Performed By: #### [id number] #### WILBERT Urinalysis [facility] [address] [place] [address] Glucose (U) [Mass/Vol] Negative Negative mg/dL Normal 019 [facility] Sys tem (77076) Comment: Performed By: #### [id number] #### WIL[facility]ERT [facility] [address] [place] [address] Ketones Ql (U) Negative Negative Normal 06-04-2018 [facility] (39186) Comment: Performed By: #### [id number] #### WILBERT [facility] [address] [place] [address] RBC (U) [#/Vol] 0-3 0-3 Normal 06-04-2018 [facility] (10215) Comment: Performed By: #### [id number] #### W[facility]ERT [facility] [address] [place] [address] UA Blood 1+ Negative Abnormal 06-04-2018 [facility] (27818) Comment: Performed By: #### [id number] #### [facility]ERT [facility] [address] [place] [address] UA Bacteria Trace None Abnormal 06-04-[address] [facility] (77743) Comment: Performed By: #### [id number] #### [facility]ERT [facility] [address] [place] [address] UA Clarity Clear Clear Normal 06-04-2018 [facility] (06458) Comment: Performed By: #### [id number] #### WIL[facility]ERT [facility] [address] [place] [address] UA Leuk Est Negative Negative Normal 06-04-[address] [facility] (26398) Comment: Performed By: #### [id number] #### W[facility]ERT [facility] [address] [place] [address] UA Mucous Trace Trace Abnormal 06-04-2018 [facility] (81519) Comment: Performed By: #### [id number] #### W[facility]ERT [facility] [address] [place] [address] UA Nitrite Negative Negative Normal 06-04-2018 [facility] (35462) Comment: Performed By: #### [id number] #### WIL[facility]ERT [facility] [address] [place] [address] UA pH 5.0 4.6-8.0 Normal 06-04-2018 [facility] (09574) Comment: Performed By: #### [id number] #### WIL[facility]ERT [facility] [address] [place] [address] UA Protein Negative Negative Normal 06-04-2018 [facility] (88883) Comment: Performed By: #### [id number] #### [facility]ERT [facility] [address] [place] [address] UA Spec Grav 1.013 1.003-1.030 Normal 06-04-2018 [facility] (96176) Comment: Performed By: #### [id number] #### [facility] [address] [place] [address] UA Squam Epithelial 0-5 0-5 Normal 06-04-2018 [facility] (95823) Comment: Performed By: #### [id number] #### W[facility]ERT [facility] [address] [place] [address] UA Urobilinogen Negative Normal 06-04-2018 [facility] (97578) Comment: Result Comment: Due to a man ufacturing issue, low positive urobilinogen results may be fasely positi ve. Correlate with urine bilirubin and additional clinical/laborato ry findings to assess the risk of hemolytic anemia or liver disease. If clinically indicated, repeat testing with an alternate method is availabl e by contacting the laboratory within 24 hours. Performed By: #### [id number] #### [facility] [address] [place] [address] UA WBC 0-5 0-5 Normal 06-04-2018 [facility] (54680) Comment: Performed By: #### [id number] #### W[facility]ERT [facility] [address] [place] [address] Urobilinogen Qn (U) Negative Negative Normal 06-04-2018 [facility] (00 000) Comment: Performed By: #### [id number] #### [facility] [address] [place] [address] sed rate automated on 2018-06-04 Sed Rate Automated 29 mm/hr Normal 06-04-2018 [facility] (28784) Comment: Result Comment: AGE-SPECIFIC REFERENCE RANGES FOR SEDIMENTATION RATE AUTOMATED REFERENCE RANGE - MM/HR AGE MEN WOMEN 0-2 0-2 - PUBERTY 3-13 3-13 PUBERTY - 50 YRS 0-15 0-20 > 50 YRS 0-20 0-30 Performed By: #### [id number] #### W[facility]ERT Hematology Manual Subse ction [address] [place] [address] lipase level on 201 12-22-12 Lipase Lvl 12 Int._Unit/L Normal 06-04-2018 [facility] (14769) Comment: Performed By: #### [id number] #### [facility] [employer] [facility] [place] [address] egfr on 2018-06-04 GFR/1.73 sq M predicted >60 mL/min/{1.73_m2} Normal 06-04-2018 [facility] among non-blacks [facility] (10830) (S/P/Bld) [Vol rate/Area] Comment: Order Comment: Order added b y Discern Expert. Performed By: #### [id number] #### [facility] [address] [place] [address] crp on 2018-06-04 CRP [Mass/Vol] 4.34 0.00-1.00 mg/dL High 06-04-2018 [facility] (42297) Comment: Performed By: #### [id number] #### [facility] [address] [place] [address] cmp on 2018-06-04 Albumin [Mass/Vol] 4.1 3.4-5.0 gm/dL Normal 06-04-2018 [facility] (00 000) Comment: Performed By: #### [id number] # ### [facility] [employer] [address] [place] [address] Albumin/Globulin [Mass 1.1 1.1-1.9 ratio Normal 019 [facility]] Health Sys tem (48652) Comment: Performed By: #### [id number] # ### [facility] [employer] [address] [place] [address] Alk Phos 64 33-110 Int._Unit/L Normal 06-04-[address] [facility] (96234) Comment: Performed By: #### [id number] # ### [facility] [employer] [address] [place] [address] ALT [Catalytic 11 7-45 Int._Unit/L Normal 06-04-2018 [facility] (97713) Comment: Performed By: #### [id number] # ### W[facility]ERT [employer] [address] [place] [address] Anion gap [Moles/Vol] 11 10-20 mEq/L Normal 06-04-19 19 [facility] (00 000) Comment: Performed By: #### [id number] # ### [facility] [employer] [address] [place] [address] AST [Catalytic 15 9-39 Int._Unit/L Normal 06-04-2018 [facility] (05139) Comment: Performed By: #### [id number] # ### [facility] [employer] [address] [place] [address] Bili Total 0.30 0.00-1.20 mg/dL Normal 06-04-2018 [facility] (46227) Comment: Performed By: #### [id number] # ### [facility] [employer] [address] [place] [address] Calcium [Mass/Vol] 8.9 8.6-10.3 mg/dL Normal 06-04-2018 [facility] (00 000) Comment: Performed By: #### [id number] # ### [facility] [employer] [address] [place] [address] Chloride [Moles/Vol] 103 98-107 mEq/L Normal 9 [facility] (00 000) Comment: Performed By: #### [id number] # ### [facility] [employer] [address] [place] [address] CO2 [Moles/Vol] 27.0 21.0-32.0 mEq/L Normal 06-04-2018 [facility] (00 000) Comment: Performed By: #### [id number] # ### WIL[facility]ERT [employer] [facility] [place] [address] Creatinine [Mass/Vol] 0.6 0.5-1.1 mg/dL Normal 06-04-19 [facility] () Comment: Performed By: #### [id number] # ### [facility]ERT [employer] [address] [place] [address] Globulin (S) [Mass/Vol] 4.0 2.0-4.0 G/DL Normal 2018 [facility] () Comment: Performed By: #### [id number] # ### W[facility] [employer] [address] [place] [address]842 Glucose [Mass/Vol] 103 70-99 mg/dL High 06-04-2018 [facility] () Comment: Performed By: #### [id number] # ### [facility] [employer] [address] [place] [address] Potassium [Moles/Vol] 3.8 3.5-5.3 mEq/L Normal 06-04-19 [facility] () Comment: Performed By: #### [id number] # ### [facility] [employer] [address] [place] [address] Protein [Mass/Vol] 7.7 6.4-8.2 gm/dL Normal 06-04-2018 [facility] () Comment: Performed By: #### [id number] # ### [facility] [employer] [address] [place] [address] Sodium [Moles/Vol] 137 136-145 mEq/L Normal 06-04-2018 [facility] () Comment: Performed By: #### [id number] # ### [facility] [employer] [address] [place] [address] 52932 Urea nitrogen [Mass/Vol] 10 6-23 mg/dL Normal 06-04 [facility] () Comment: Performed By: #### [id number] # ### [facility] [employer] [address] [place] [address] Urea nitrogen/Creatinine 16.7 5.4-30.0 ratio Normal 06-04 [facility] [Mass ratio] [facility] (24617) Comment: Performed By: #### [id number] # ### [facility] [employer] [address] [place] [address] cbc w/ auto diff on 2018-06-04 Erythrocyte distribution 13.8 11.5-14.5 % Normal 06-04 [facility] width (RBC) [Ratio] [facility] (22943) Comment: Performed By: #### [id number] # ### WIL[facility]ERT Rem[employer]emo [address] [place] [address] Hematocrit (Bld) [Volume 40.4 36.0-48.0 % Normal 06-04 [facility]] [facility] (46551) Comment: Performed By: #### [id number] # ### [facility]ERT RemHemo [address] [place] [address] Hemoglobin (Bld) 13.5 12.0-16.0 G/DL Normal 06-04-[address] [facility] [Mass/Vol] [facility] (98370) Comment: Performed By: #### [id number] # ### WIL[facility]ERT RemHemo [address] [place] [address] MCH (RBC) [Entitic mass] 29.1 27.0-31.0 pg Normal 06-04 [facility] (00 000) Comment: Performed By: #### [id number] # ### WILBERT RemHemo [address] [place] [address] MCHC (RBC) [Mass/Vol] 33.4 33.0-37.0 G/DL Normal 06-04-19 19 [facility] (00 000) Comment: Performed By: #### [id number] # ### WIL[facility]ERT RemHemo [address] [place] [address] MCV (RBC) [Entitic vol] 87.1 78.0-100.0 fL Normal 06-04 [facility] (92853) Comment: Performed By: #### [id number] # ### WILBRET RemHemo [address] [place] [address] Platelet mean volume 9.2 7.4-11.0 fL Normal 9 [facility] (Bld) [Entitic vol] System (82226) Comment: Performed By: #### [id number] # ### WILBERT BrownHemo [facility] [place] [address] Platelets (Bld) [#/Vol] 334 130-400 E3/mcL Normal 2018 [facility] (40160) Comment: Performed By: #### [id number] # ### WILBERTDenny BrownHem[address] [address] RBC (Bld) [#/Vol] 4.64 3.90-5.40 E6/mcL Normal 06-04-2018 [facility] (00 000) Comment: Performed By: #### [id number] # ### WILBERT [address] [address] WBC (Bld) [#/Vol] 9.8 3.6-11.0 E3/mcL Normal 06-04-2018 [facility] (00 000) Comment: Performed By: #### [id number] # ### WILBERTDenny BrownHem[address] [address] auto diff on 2018-0 2-13 Basophils (Bld) [#/Vol] 0.1 0.0-0.2 E3/mcL Normal 2018 [facility] tem (42712) Comment: Order Comment: Order Added b y Discern Expert. Performed By: #### [id number] # ### WILBERTDenny BrownHemo [address] [place] [address] Basophils/100 WBC (Bld) 0.5 0.0-2.0 % Normal 2018 [facility] (00 000) Comment: Order Comment: Order Added b y Discern Expert. Performed By: #### [id number] # ### WILBERTDenny BrownHemo [address] [place] [address] Eos Absolute 0.1 0.0-0.7 E3/mcL Normal 06-04-2018 [facility] (52652) Comment: Order Comment: Order Added b y Discern Expert. Performed By: #### [id number] # ### WILBERTDenny BrownHemo [address] [place] [address] Eosinophils/100 WBC (Bld) 0.6 0.0-11.0 % Normal 05-23 [facility] (00 000) Comment: Order Comment: Order Added b y Discern Expert. Performed By: #### [id number] # ### WILBERT Paigeo [address] [place] [address] Lymphocytes (Bld) [#/Vol] 2.2 1.2-3.4 E3/mcL Normal 05-23 [facility] (67924) Comment: Order Comment: Order Added b y Discern Expert. Performed By: #### [id number] # ### WILBERT Paigeo [address] [place] [address] Lymphocytes/100 WBC (Bld) 22.8 20.0-55.0 % Normal 05-23 [facility] (65291) Comment: Order Comment: Order Added b y Discern Expert. Performed By: #### [id number] # ### WILBERT Paigeo [address] [place] [address] Sarpy Absolute 0.7 0.0-0.7 E3/mcL Normal 06-04-2018 [facility] (34840) Comment: Order Comment: Order Added b y Discern Expert. Performed By: #### [id number] # ### WILBERT Paigeo [address] [place] [address] Monocytes/100 WBC (Bld) 7.0 0.0-10.0 % Normal 2018 [facility] (00 000) Comment: Order Comment: Order Added b y Discern Expert. Performed By: #### [id number] # ### WILBERT BrownHemo [address] [place] [address] Neutro Absolute 6.8 1.4-6.5 E3/mcL High 06-04-2018 [facility] (29489) Comment: Order Comment: Order Added b y Discern Expert. Performed By: #### [id number] # ### WILBERT Paigeo [facility] [place] [address] Neutro Auto 69.1 37.0-75.0 % Normal 06-04-[address] [facility] (04746) Comment: Order Comment: Order Added b y Discern Expert. Performed By: #### [id number] # ### WILBERT BrownHemo [address] [place] [address] tsh on 2018-05-26 TSH Qn 3.70 0.30-5.60 mcIU/mL Normal 05-26-2018 [facility] (79302) Comment: Performed By: #### [id number] # ### WILBERT [employer]ink [address] [place] [address] egfr on 2018-05-26 GFR/1.73 sq M predicted >60 mL/min/{1.73_m2} Normal 05-26-2018 [facility] among non-blacks [facility] (11726) (S/P/Bld) [Vol rate/Area] Comment: Order Comment: Order added b y Discern Expert. Performed By: #### [id number] #### W[facility]ERT [employer] [address] [place] [address] cmp on 2018-05-26 Albumin [Mass/Vol] 4.3 3.4-5.0 gm/dL Normal 05-26-2018 [facility] (00 000) Comment: Performed By: #### [id number] # ### WIL[facility]ERT [employer] [address] [place] [address] Albumin/Globulin [Mass 1.4 1.1-1.9 ratio Normal 019 [facility]] Health Sys tem (58702) Comment: Performed By: #### [id number] # ### WIL[facility]ERT [employer] [address] [place] [address] Alk Phos 71 33-110 Int._Unit/L Normal 05-26-2018 [facility] (21410) Comment: Performed By: #### [id number] # ### WIL[facility]ERT [employer] [address] [place] [address] ALT [Catalytic 15 7-45 Int._Unit/L Normal 05-26-[address] [facility] activity/Vol Health System (26230) Comment: Performed By: #### [id number] # ### WILBERT [employer] [address] [place] [address] Anion gap [Moles/Vol] 11 10-20 mEq/L Normal 05-26-19 19 [facility] (00 000) Comment: Performed By: #### [id number] # ### WILBERT [employer] [address] [place] [address] AST [Catalytic 15 9-39 Int._Unit/L Normal 05-26-[address] [facility] (67736) Comment: Performed By: #### [id number] # ### WILBERT [employer] [address] [place] [address] Bili Total 0.27 0.00-1.20 mg/dL Normal 05-26-2018 [facility] (44739) Comment: Performed By: #### [id number] # ### WILBERT [employer] [address] [place] [address] Calcium [Mass/Vol] 9.4 8.6-10.3 mg/dL Normal 05-26-2018 [facility] () Comment: Performed By: #### [id number] # ### WIL[facility]ERT [employer] [address] [place] [address] Chloride [Moles/Vol] 102 98-107 mEq/L Normal 9 [facility] () Comment: Performed By: #### [id number] # ### WILBERT [employer] [address] [place] [address] CO2 [Moles/Vol] 28.0 21.0-32.0 mEq/L Normal 05-26-2018 [facility] (00 000) Comment: Performed By: #### [id number] # ### WILBERT [employer] [address] [place] [address] Creatinine [Mass/Vol] 0.7 0.5-1.1 mg/dL Normal 05-26-19 19 [facility] (00 000) Comment: Performed By: #### [id number] # ### WILBERT [employer] [address] [place] [address] Globulin (S) [Mass/Vol] 3.0 2.0-4.0 G/DL Normal 2018 [facility] (00 000) Comment: Performed By: #### [id number] # ### WIL[facility]ERT [employer] [address] [place] [address] Glucose [Mass/Vol] 87 70-99 mg/dL Normal 05-26-2018 [facility] (61533) Comment: Performed By: #### [id number] # ### WIL[facility]ERT [employer] [address] [place] [address] Potassium [Moles/Vol] 3.8 3.5-5.3 mEq/L Normal 05-26-19 19 [facility] (00 000) Comment: Performed By: #### [id number] # ### WILBERT [employer] [address] [place] [address] Protein [Mass/Vol] 7.4 6.4-8.2 gm/dL Normal 05-26-2018 [facility] (00 000) Comment: Performed By: #### [id number] # ### WILBERT [employer] [address] [place] [address] Sodium [Moles/Vol] 137 136-145 mEq/L Normal 05-26-2018 [facility] (00 000) Comment: Performed By: #### [id number] # ### WILBERT [employer] [facility] [place] [address] Urea nitrogen [Mass/Vol] 14 6-23 mg/dL Normal 05-26 [facility] (00 000) Comment: Performed By: #### [id number] # ### WILBERT [employer] [address] [place] [address] Urea nitrogen/Creatinine 20.0 5.4-30.0 ratio Normal 05-26 [facility] [Mass ratio] [facility] (53711) Comment: Performed By: #### [id number] # ### WILBERT [facility] [address] [place] [address] cbc w/ auto diff on 2018-05-26 Erythrocyte distribution 13.5 11.5-14.5 % Normal 05-26 [facility] width (RBC) [Ratio] [facility] ([id number]) Comment: Performed By: #### [id number] # ### WILBERT BrownHemo [address] [place] [address] Hematocrit (Bld) [Volume 40.3 36.0-48.0 % Normal 05-26 [facility]] Health Sys tem (81915) Comment: Performed By: #### [id number] # ### WILBERT RemHemo [address] [place] [address] Hemoglobin (Bld) 13.5 12.0-16.0 G/DL Normal 05-26-[address] [facility] [Mass/Vol] [facility] Sy stem (40038) Comment: Performed By: #### [id number] # ### WILBERT RemHemo [address] [place] [address] MCH (RBC) [Entitic mass] 28.9 27.0-31.0 pg Normal 05-26 [facility] ( 000) Comment: Performed By: #### [id number] # ### WILBERT RemHemo [facility] [place] [address] MCHC (RBC) [Mass/Vol] 33.4 33.0-37.0 G/DL Normal 05-26-19 19 [facility] () Comment: Performed By: #### [id number] # ### WILBERT RemHemo [address] [place] [address] MCV (RBC) [Entitic vol] 86.4 78.0-100.0 fL Normal 05-26 [facility] (78104) Comment: Performed By: #### [id number] # ### WILBERT RemHemo [address] [place] [address] Platelet mean volume 9.1 7.4-11.0 fL Normal 9 [facility] (d) [Entitic vol] System (15746) Comment: Performed By: #### [id number] # ### WILBERT RemHemo [address] [place] [address] Platelets (Bld) [#/Vol] 334 130-400 E3/mcL Normal 2018 [facility] (90475) Comment: Performed By: #### [id number] # ### WILBERT RemHemo [address] [place] [address] RBC (Bld) [#/Vol] 4.66 3.90-5.40 E6/mcL Normal 05-26-2018 [facility] (00 000) Comment: Performed By: #### [id number] # ### WILBERT RemHemo [address] [place] [address] WBC (Bld) [#/Vol] 8.4 3.6-11.0 E3/mcL Normal 05-26-2018 [facility] (00 000) Comment: Performed By: #### [id number] # ### WILBERT Brown[address] [address] auto diff on 05-26 Basophils (Bld) [#/Vol] 0.1 0.0-0.2 E3/mcL Normal 2018 [facility] tem (63202) Comment: Order Comment: Order Added b y Discern Expert. Performed By: #### [id number] # ### WILBERT Brown[address] [address] Basophils/100 WBC (Bld) 1.2 0.0-2.0 % Normal 2018 [facility] ( 000) Comment: Order Comment: Order Added b y Discern Expert. Performed By: #### [id number] # ### [address] [address] Eos Absolute 0.0 0.0-0.7 E3/mcL Normal 05-26-2018 [facility] (42826) Comment: Order Comment: Order Added b y Discern Expert. Performed By: #### [id number] # ### WILBERTDenny Paige[address] [address] Eosinophils/100 WBC (Bld) 0.3 0.0-11.0 % Normal [facility] (00 000) Comment: Order Comment: Order Added b y Discern Expert. Performed By: #### [id number] # ### WILBERT Brown[address] [address] Lymphocytes (Bld) [#/Vol] 2.5 1.2-3.4 E3/mcL Normal [facility] tem (72828) Comment: Order Comment: Order Added b y Discern Expert. Performed By: #### [id number] # ### [address] [address] Lymphocytes/100 WBC (Bld) 29.6 20.0-55.0 % Normal [facility] tem (68396) Comment: Order Comment: Order Added b y Discern Expert. Performed By: #### [id number] # ### WILBERT Paigeo [address] [place] [address] Sarpy Absolute 0.5 0.0-0.7 E3/mcL Normal 05-26-2018 [facility] (05781) Comment: Order Comment: Order Added audra Dunham Expert. Performed By: #### [id number] # ### WILBERT Paigeo [facility] [place] [address] Monocytes/100 WBC (Bld) 5.7 0.0-10.0 % Normal 2018 [facility] (00 000) Comment: Order Comment: Order Added b y Discern Expert. Performed By: #### [id number] # ### WILBERT Paigeo [facility] [place] [address] Neutro Absolute 5.3 1.4-6.5 E3/mcL Normal 05-26-2018 [facility] (62010) Comment: Order Comment: Order Added audra Dunham Expert. Performed By: #### [id number] # ### WILBERT Paigeo [facility] [place] [address] Neutro Auto 63.2 37.0-75.0 % Normal 05-26-[address] [facility] (63793) Comment: Order Comment: Order Added audra fonseca Discern Expert. Performed By: #### [id number] # ### WILBERT Paigeo [address] [place] [address] xr chest pa and lateral on 2017-09-30 XR CHEST PA AND TWO-VIEW CHEST:REASON FOR STUDY: N ormal 09-30-2017 [facility] LATERAL Pre-employment evaluation.REPORT: Hospital The trachea, mediastinum and (11522) heart size are unremarkable. No effusion or [...] BMI (Body Mass Index) 32.68 kg/m2 02-18-[address] ([address]) BMI (Body Mass Index) 32.92 kg/m2 02-03-2019 [facility] (83270) Body weight 73.4 kg 02-18-2019 [facility] [address] ([address]) Body weight 73.94 kg 02-03-2019 [facility] (41122) BP Diastolic 64 mm[Hg] 02-18-2019 [facility] [address] ([address]05) BP Diastolic 60 mm[Hg] 02-03-2019 [facility] (46276) BP Systolic 110 mm[Hg] 02-18-2019 [facility] [address] ([address]209) BP Systolic 106 mm[Hg] 02-03-2019 [facility] (13938) BSA (Body Surface Area) 1.69 m2 02-18-2019 [facility] [address] ([address]) BSA (Body Surface Area) 1.69 m2 02-03-2019 [facility] (67126) Height 149.86 cm 02-18-2019 [facility] [address] ([address]447) Height 149.86 cm 02-03-2019 [facility] (58572) Pulse (Heart Rate) 72 /min 02-03-2019 -[facility] (80637) Encounters Date Type Reason Provider Location 09-30-2017 Ambulatory Encounter for [facility] pre-employment [facility] (000 00) examination 02-18-2019 Patient encounter Disease [facility] procedure [address] ([address]) 02-03-2019 Patient encounter Disease [facility] (43345 ) 06-24-2018 Patient encounter Disease [facility] (46882 ) 06-19-2018 Patient encounter Disease [facility] (98886 ) 09-18-2019 - Subsequent hospital [facility] 09-18-2019 visit by physician Comment: uti/ breast pain Procedures Procedure Name Date Provider Location Follow-up visit 10-15-2019 [facility] (0 0000) Follow-up visit 06-05-2019 [facility] (0 0000) Antibody screen 03-20-2019 [facility] (85117) Comment: Performed By: #### TSPN #### [facility] [address] [id number] Assay of free thyroxine 02-03-2019 [facility] (67256) Assay of thyroid stimulating hormone 02-03-2019 [facility] (63420) tsh Gonadotropin chorionic qualitative 02-03-2019 [facility] (93452) History of No history of surgery [facility] (77112) Plan of Treatment Plan Description Date Location DTAP,TDAP,TD (2 - Td) DTAP,TDAP,TD (2 - Td) 06-21-2029 [facility] (78449) PAP TESTING PAP TESTING 03-20-2022 [facility] (92776) CHLAMYDIA SCREENING CHLAMYDIA SCREENING 03-20-2020 [facility] (55357) (18-24) (18-24) GC (GONORRHEA) SCREENING GC (GONORRHEA) SCREENING 03-20-2020 [facility] (05565) (18-24) (18-24) ANNUAL PCP TEAM CHRONIC ANNUAL PCP TEAM CHRONIC 06-30-2015 [facility] (79151) DISEASE VISIT DISEASE VISIT HPV VACCINE (1 - 2-dose HPV VACCINE (1 - 2-dose 2008 [facility] (66714) series) series) T4 - Free Thyroxine, T4 - Free Thyroxine, Serum [facility] (07256) Comment: Approx [id number] TSH - Thyroid Stimulating TSH - Thyroid Stimulating [facility] Hormone, Serum Hormone, Serum (77558) Comment: Approx [id number] NEGATED: Highlighted row has Planned Goals not documented [facility] been ruled out! (27886) no information [facility] (25093) The following information is from the original [...] Influenza Seasonal Inj influenza, injectable, (completed) 05-13-19 [facility] Quadrivalent Age 3+ quadrivalent, contains (46208) preservative Tdap (Age 7+) tetanus toxoid, (completed) 06-22-2019 [facility] linic reduced diphtheria (77392) toxoid, and acellular pertussis vaccine, adsorbed Payers Payer Name Policy Number Location MMO [id number] [facility] (44 195) [place] [employer] [id number] [facility] (44 195) The following information is from the original human readable contentNo Payer Records FoundNo Payer Records FoundNo Payer Records FoundNo Payer Records FoundNo Payer Records FoundNo Payer Records FoundNo Payer Records FoundNo Payer Records FoundNo Payer Records FoundNo Payer Records FoundNo Payer Records Found Social History Type Social History Date Location Description NEGATED: Highlighted row - [facility] (81466) Tobacco smoking status Never smoker 09-18-2019 [facility] (52421) Tobacco use and exposure Never used 09-18-2019 [facility] (07211) Alcohol intake Ex-drinker (finding) 09-18-2019 [facility] lin (69664) History SDOH Education 13 03-12-2019 [facility] (02304) History SDOH Financial 4 03-12-2019 [facility] (54999) History SDOH Food Worry 1 03-12-2019 - [facility] 03-12-2019 (44212) History SDOH Transport 2 03-12-2019 - [facility] Med 03-12-2019 (83009) Sex Assigned At Not on file [facility] (55439) Exposure to SARS-CoV-2 Not sure [facility] (event) (01526) The following information is from the original [...] Practice rowFunctional performance issues are not documented (27855) Mental Status Status Assessment Result Location NEGATED: Highlighted Cognitive status [facility] rowCognitive function issues are not documented (25962) [Interpretation] Family History No Family History Records [...] BE BASED ON THE PRIMARY CLINICAL RECORDS. [facility] provides no warranty or guarantee of the accuracy or completeness of information in this document. UNRECOGNIZED CONTENT PROVIDED BELOW FOR UNRECOGNIZED SECTION INFORMATION SOURCE DATE CREATED AUTHOR AUTHOR'S ORGANIZATIO N 10/08/2017 [facility] DATE CREATED AUTHOR AUTHOR'S ORGANIZATIO N 12/25/2018 [facility] DATE CREATED AUTHOR AUTHOR'S ORGANIZATIO N 11/11/2019 [facility] DATE CREATED AUTHOR AUTHOR'S ORGANIZATIO N 11/11/2019 [facility] DATE CREATED AUTHOR AUTHOR'S ORGANIZATIO N 11/27/[address] [facility] DATE CREATED AUTHOR AUTHOR'S ORGANIZATIO N 12/14/2019 [facility] UNRECOGNIZED CONTENT PROVIDED BELOW FOR UNRECOGNIZED SECTION Source Comments In the event this information is protected by the Federal Confidentiality of Alcohol and Drug Abuse Patient Records regulations: The Federal rules restrict any use of the information to criminally investigate or prosecute any alcohol or drug abuse patient.[facility]
== END 2019-09-01 10:35 | disposition home or self-care (01) | DRG 788 ==
LOC: WPOUT 07:16 → WP 07:16
PROVIDERS: Admitting Provider Obstetrics & Gynecology; Referring Provider Obstetrics & Gynecology; Visit Provider Obstetrics & Gynecology
DX: O62.1 Secondary uterine inertia (principal); O77.0 Labor and delivery complicated by meconium in amniotic fluid; Z3A.38 38 weeks gestation of pregnancy; Z37.0 Single live birth; O90.89 Other complications of the puerperium, not elsewhere classified; L30.9 Dermatitis, unspecified
CPT/HCPCS: 59025; 59050; 84112; 85025; 85027; 86850; 86900; 86901; 99218; J7120; A4216; G0378; J2405

== ENCOUNTER 2022-07-11 10:53 | Emergency (ER) | payer MEDICAID, SELFPAY ==
[2022-07-11 10:54] VITALS: BP 118/61; PULSE 98; RESP 14; TEMP 36.6; O2SAT 98; BMI 35.4
--- NOTE | 2022-07-11 11:46 | US_ITS ---
STUDY: FIRST TRIMESTER OBSTETRICAL ULTRASOUND REASON FOR EXAM: Female, 27 years old abdominal pain LMP: April 30, 2022. TECHNIQUE: Transabdominal and Transvaginal TECHNICAL QUALITY: Adequate. PRIOR ULTRASOUND: None. FINDINGS: There is visualization of a single gestational sac in a normal intrauterine position. The mean sac diameter (MSD) measures 4.5 cm, indicating an estimated gestational age (EGA) of 9 weeks, 6 days. The gestational sac shape is within normal limits. There is a visualized yolk sac. The yolk sac measures 6 mm.. The placenta is non-visualized. There is visualization of a live embryo. The crown-rump length (CRL) measures 4.2 cm, indicating an estimated gestational age (EGA) of 10 weeks, 5 days. There is demonstrated cardiac activity with a heart rate of 177 bpm. The estimated gestation age (EGA) by LMP is 10 weeks, 2 days. The estimated date of delivery (TREV) by LMP is February 04, 2023. The estimated gestation age (EGA) by US is 10 weeks, 2 days. The estimated date of delivery (TREV) by US is February 04, 2023.. The uterus measures 12.4 cm x 8.3 cm x 7.9 cm. There is no demonstrated uterine fibroid. The cervix is closed. The right ovary measures 3 cm x 2.6 cm x 1.7 cm. There is no right ovarian cyst. There is no visualized right adnexal mass or complex lesion. The left ovary measures 2.9 cm x 2.4 cm x 1.7 cm. There is no left ovarian cyst. There is no visualized left adnexal mass or complex lesion. There is no fluid in the cul de sac. US/Init OB < 14Wks US IMPRESSION: Single live uterine gestation with mean gestational age of 10 weeks and 2 days. Electronically Signed: Jean-Paul Moar MD at 13:16 EDT ,
--- NOTE | 2022-07-11 11:52 | EDS_ITS ---
HPI HPI - GI History of Present Illness Chief Complaint: Nausea/Vomiting Narrative Narrative: 27-year-old female 10 weeks gestation presenting with abdominal pain, nausea, vomiting for the last 12 hours. She describes her pain is more epigastric in nature. She had no vaginal bleeding or spotting. No urinary symptoms. No loss of fluid. No fevers or chills. Patient does not have anything for nausea and vomiting at home. Patient states she had a confirmed intrauterine at 7 weeks. This was done at [facility]. So far she has not had any issues until today. 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 Migraine headache PCOS (polycystic ovarian syndrome) Home Medications vit no.95-ferrous fumarate 28 mg-folic acid 800 mcg tablet 1 ea PO DAILY 04/06/19 [History Last Taken 08/28/19] levothyroxine 100 mcg tablet 100 mcg PO DAILY hypothyroidism 08/29/19 [History Last Taken 08/28/19] acetaminophen 500 mg tablet 1,000 mg PO Q8H PRN PRN Pain Score 1-3/10;Temp>99.6F 08/31/19 [Rx Last Taken Unknown] hydrocortisone 2.5 % topical cream 1 applic topical TID PRN PRN Discomfort #1 tube 08/31/19 [Rx Last Taken Unknown] ibuprofen 600 mg tablet 600 mg PO Q6H PRN PRN Pain Score 1-3/10 08/31/19 [Rx Last Taken Unknown] nystatin 100,000 unit/gram topical cream 1 applicatio TP TID #30 grams 08/31/19 [Rx Last Taken Unknown] ondansetron HCl 4 mg tablet 4 mg PO Q8H PRN PRN Nausea #10 tabs 08/31/19 [Rx Last Taken Unknown] sennosides 8.6 mg-docusate sodium 50 mg tablet 1 tab PO DAILY PRN Constipation #15 tabs 08/31/19 [Rx Last Taken Unknown] ondansetron 4 mg disintegrating tablet 4 mg PO Q8H PRN PRN Nausea #14 tabs 07/11/22 [Rx Last Taken Unknown] Allergy/AdvReac Type Severity Reaction Status Date / Time sulfamethoxazole Allergy Rash Verified 07/11/22 10:54 [From Bactrim] trimethoprim [From Bactrim] Allergy Rash Verified 07/11/22 10:54 Family History Other Diabetes Heart disease Thyroid disorder Social History Smoking Status: Former smoker alcohol intake: never ROS ROS ED Constitutional Constitutional ED: Denies chills or fever(s) ENT ENT ED: Denies rhinorrhea or sore throat Cardiovascular Cardiovascular: Denies chest pain or palpitations Respiratory/Chest Respiratory/Chest: Denies cough or dyspnea Gastrointestinal Gastrointestinal: Reports abdominal pain, nausea and vomiting Genitourinary Genitourinary ED: Denies dysuria or hematuria Musculoskeletal Musculoskeletal: Denies arthralgias or back pain Integumentary Denies abscess Neurologic Neurologic: Denies headache(s) or paresthesias Psychiatric Psychiatric: Denies anxiety or depression EXAM Physical Exam Const Vital Signs: 07/11/22 10:54 Temperature 98 F Temperature Source Temporal Pulse Rate 98 Respiratory Rate 14 Blood Pressure 118/61 Blood Pressure Mean 80 Pulse Ox 98 Oxygen Delivery Method Room Air Positive well nourished General Appearance ED: NAD HEENT Reports moist mucous membranes Eyes PERRL and EOMs intact bilaterally Resp normal respiratory effort Cardio regular rate and regular rhythm GI Palpation: tender epigastric Neuro CN's II-XII intact bilaterally and moves all extremities Sensorium / Orientation: alert Psych mental status grossly normal and thought process normal Skin General Skin Exam: Negative for jaundice MDM MDM MDM Narrative Medical decision making narrative: Well-appearing 27-year-old female with confirmed intrauterine presenting with abdominal pain nausea, vomiting. Vital signs are stable and she is afebrile. She does have tenderness in the epigastric region. Abdomen is soft. Gravid. CBC to assess white blood cell count, hemoglobin, platelets, differential. CMP to assess liver function, renal function and electrolytes, glucose, anion gap. Urinalysis to assess for UTI. Patient given a liter normal saline, 4 mg Zofran, Pepcid IV. Will obtain transvaginal ultrasound. CBC shows normal white blood cell count. Hemoglobin monitor stable. Platelets are normal. Renal function electrolytes normal. LFTs are normal. Lipase normal. hCG 96,893. Urinalysis negative for infection. Obstetrics ultrasound showed a single live uterine gestation with mean gestational age of 10 weeks and 2 days. heart rate 177. Urinalysis is negative. On reevaluation patient is feeling very much improved. Feel she stable for discharge home. I will discharge her home with Luis. Impression: 1. Hyperemesis gravidarum Lab Data Labs: Laboratory Results - last 24 hr 07/11/22 07/11/22 07/11/22 11:55 11:55 11:55 WBC Cancelled Corrected WBC Cancelled RBC Cancelled Hgb Cancelled Hct Cancelled MCV Cancelled MCH Cancelled MCHC Cancelled RDW Std Deviation Cancelled RDW Coeff of Miguel Cancelled Plt Count Cancelled MPV Cancelled Immature Gran % (Auto) Cancelled Neut % (Auto) Cancelled Lymph % (Auto) Cancelled [place] % (Auto) Cancelled Eos % (Auto) Cancelled Baso % (Auto) Cancelled Absolute Neuts (auto) Cancelled Absolute Lymphs (auto) Cancelled Total Counted Cancelled Neutrophils % (Manual) Cancelled Band Neutrophils % Cancelled Lymphocytes % (Manual) Cancelled Monocytes % (Manual) Cancelled Eosinophils % (Manual) Cancelled Basophils % (Manual) Cancelled Metamyelocytes % Cancelled Myelocytes % Cancelled Promyelocytes % Cancelled Blast Cells % Cancelled Plasma Cell % (Manual) Cancelled Other Cells % Cancelled Nucleated RBC % Cancelled Nucleated RBCs/100 WBC Cancelled Differential Comment Cancelled Diff Path Review Cancelled Hypersegmented Neuts Cancelled Atypical Lymphocytes Cancelled Reactive Lymphocytes Cancelled Smudge Cells Cancelled Toxic Granulation Cancelled Toxic Vacuolation Cancelled Dohle Bodies Cancelled Garrett Rods Cancelled Platelet Estimate Cancelled Plt Morphology Comment Cancelled RBC Morphology Cancelled Polychromasia Cancelled Hypochromasia Cancelled Poikilocytosis Cancelled Basophilic Stippling Cancelled Anisocytosis Cancelled Microcytosis Cancelled Macrocytosis Cancelled Spherocytes Cancelled Sickle Cells Cancelled Target Cells Cancelled Tear Drop Cells Cancelled Ovalocytes Cancelled Stomatocytes Cancelled [place] Bodies Cancelled Zonia Cells Cancelled Bite Cells Cancelled Crenated Cell Cancelled Acanthocytes (Spur) Cancelled Rouleaux Cancelled Schistocytes Cancelled Sodium 137 Potassium 4.0 Chloride 105 Carbon Dioxide 26.0 Anion Gap 6 BUN 14 Creatinine 0.73 Estim Creat Clear Calc 143.02 Est GFR (MDRD) Af Amer 125 Est GFR (MDRD) Non-Af 103 BUN/Creatinine Ratio 19.2 Glucose 111 H Calcium 9.5 Lipase 62 L HCG, Quant 87635 H Urine Color Urine Clarity Urine pH Ur Specific [place] Urine Protein Urine Glucose (UA) Urine Ketones Urine Occult Blood Urine Nitrite Urine Bilirubin Urine Urobilinogen Ur Leukocyte Esterase Urine RBC Urine WBC Ur Squamous Epith Cells Urine Bacteria Urine Mucus 07/11/22 07/11/22 13:00 14:01 WBC 10.2 Corrected WBC RBC 4.35 Hgb 13.0 Hct 38.1 MCV 87.6 MCH 29.9 MCHC 34.1 RDW Std Deviation 41.7 RDW Coeff of Miguel 13.0 Plt Count 244 MPV 10.2 Immature Gran % (Auto) 0.500 Neut % (Auto) 91.0 H Lymph % (Auto) 5.0 L [place] % (Auto) 3.3 Eos % (Auto) 0.1 Baso % (Auto) 0.1 Absolute Neuts (auto) 9.3 H Absolute Lymphs (auto) 0.51 L Total Counted Neutrophils % (Manual) Band Neutrophils % Lymphocytes % (Manual) Monocytes % (Manual) Eosinophils % (Manual) Basophils % (Manual) Metamyelocytes % Myelocytes % Promyelocytes % Blast Cells % Plasma Cell % (Manual) Other Cells % Nucleated RBC % 0 Nucleated RBCs/100 WBC Differential Comment COMMENT Diff Path Review Hypersegmented Neuts Atypical Lymphocytes Reactive Lymphocytes Smudge Cells Toxic Granulation Toxic Vacuolation Dohle Bodies Garrett Rods Platelet Estimate Plt Morphology Comment RBC Morphology Polychromasia Hypochromasia Poikilocytosis Basophilic Stippling Anisocytosis Microcytosis Macrocytosis Spherocytes Sickle Cells Target Cells Tear Drop Cells Ovalocytes Stomatocytes [place] Bodies Drums Cells Bite Cells Crenated Cell Acanthocytes (Spur) Rouleaux Schistocytes Sodium Potassium Chloride Carbon Dioxide Anion Gap BUN Creatinine Estim Creat Clear Calc Est GFR (MDRD) Af Amer Est GFR (MDRD) Non-Af BUN/Creatinine Ratio Glucose Calcium Lipase HCG, Quant Urine Color Yellow Urine Clarity Clear Urine pH 7.0 Ur Specific [place] 1.015 Urine Protein 30 H Urine Glucose (UA) Normal Urine Ketones 50 H Urine Occult Blood Negative Urine Nitrite Negative Urine Bilirubin Negative Urine Urobilinogen 1 H Ur Leukocyte Esterase 25 H Urine RBC 0 SEEN Urine WBC 0 SEEN Ur Squamous Epith Cells 5-10 SEEN Urine Bacteria RARE Urine Mucus 0 SEEN Radiography Diagnostic Testing: Clinical Impression(s) from Imaging Studies Obstetrics Ultrasound 07/11/22 11:46 IMPRESSION: Single live uterine gestation with mean gestational age of 10 weeks and 2 days. Electronically Signed: Jean-Paul Mora MD at 13:16 EDT , Discharge Plan Triage Chief Complaint: Nausea/Vomiting ED Provider: Satish Garcia Dx/Rx/DC Orders Instructions: ED Hyperemesis Gravidarum Prescriptions: New ondansetron 4 mg tablet,disintegrating 4 mg PO Q8H PRN PRN (Reason: Nausea) Qty: 14 0RF No Action PNV cmb#95-ferrous fumarate-FA 1 EACH tablet 1 ea PO DAILY levothyroxine 100 MCG tablet 100 mcg PO DAILY sennosides-docusate sodium 1 TABLET tablet 1 tab PO DAILY PRN (Reason: Constipation) Qty: 15 0RF acetaminophen 500 MG tablet 1,000 mg PO Q8H PRN PRN (Reason: Pain Score 1-3/10;Temp>99.6F) 0RF hydrocortisone 1 APPLIC cream 1 applic topical TID PRN PRN (Reason: Discomfort) Qty: 1 0RF Protocol: *Topical Application Instructions APPLICATION INSTRUCTIONS: Give for discomfort with pad changes Rx Instructions: Apply to abdominal area for 1 week and then as needed ibuprofen 600 MG tablet 600 mg PO Q6H PRN PRN (Reason: Pain Score 1-3/10) 0RF ondansetron HCl 4 MG tablet 4 mg PO Q8H PRN PRN (Reason: Nausea) Qty: 10 0RF nystatin 15 GM cream 1 applicatio TP TID Qty: 30 0RF Rx Instructions: apply to abdominal erythema Primary Care Provider: PAKO SNOW Referrals: PAKO SNOW [Other] Disposition Disposition: Home, Self Care
[2022-07-11] MEDS: 0.9% Normal Saline 1,000 ML 1000 ML IV (12:03)
[2022-07-11] MEDS: Ondansetron 4 MG/2 ML Vial IV (12:03)
[2022-07-11 12:24] LABS: Anion Gap 6 (5-15); BUN 14 mg/dL (7-18); BUN/Creat Ratio 19.2 RATIO (10-20); Calcium,Total 9.5 mg/dL (8.5-10.1); Chloride 105 mmol/L (98-107); Creatinine, Serum 0.73 mg/dL (0.55-1.02); EST Glomerular Filtration Rate 103 mL/min (>60); Est Glom Filt Rate - Afr Amer 125 mL/min (>60); Estimated Creatinine Clearance 143.02 ml/min; Glucose 111 mg/dL (74-106); Lipase 62 U/L (73-393); Sodium Level 137 mmol/L (136-145)
[2022-07-11] MEDS: Famotidine 200 MG/20 ML MDV 20 MG in 0.9% Normal Saline (Pres. free 8 ML 300 MG IV (12:56)
[2022-07-11] MEDS: Acetaminophen 325 MG Tablet 650 MG PO (13:10)
[2022-07-11 13:18] LABS: Absolute Lymphocyte Count 0.51 X10^3/uL (0.83-4.51); Absolute Neutrophil Count 9.3 X10^3/uL (2.0-7.7); Basophil# 0.01 X10^3/uL; Basophil% 0.1 % (0-1); Eosinophil# 0.01 X10^3/uL; Eosinophils% 0.1 % (0-5); Hematocrit 38.1 % (37-47); Lymphocyte # 0.51 X10^3/ul (0.83-4.51); Mean Corp Hgb Conc 34.1 g/dL (32-36); Mean Corpuscular Hgb 29.9 pg (27.0-32.0); Mean Corpuscular Volume 87.6 fL (81-99); Mean Platelet Vol. 10.2 fl (6.2-12.0); Monocyte# 0.34 X10^3/uL; Monocyte% 3.3 % (0-10); NRBC Flagged by Analyzer 0 % (0-5); Neutrophil # 9.31 X10^3/uL (2.7-7.7); POSITIVE DIFFERENTIAL YES; Platelet Count 244 K/mm3 (150-450); RBC Distribution Width SD 41.7 fl (35.1-43.9); Red Blood Count 4.35 M/mm3 (4.2-5.4); White Blood Count 10.2 K/mm3 (4.4-11.0)
[2022-07-11 13:21] LABS: Differential Indicated SCAN CRITERIA MET
[2022-07-11 14:08] LABS: Mucous, Urine 0 SEEN /hpf (<or=2+); Red Blood Cells-Urine 0 SEEN /hpf (0-5); White Blood Cells 0 SEEN /hpf (0-5)
[2022-07-11 14:12] LABS: Color, Urine Yellow (Yellow); Glucose, Dipstick Normal (Normal); Ketone-Dipstick 50 mg/dl (Negative); Leukocyte Esterase-Dipstick 25 /ul (Negative); Nitrite-Dipstick Negative (Negative); Occult Blood-Urine Negative /ul (Negative); Protein-Dipstick 30 mg/dl (Negative); Specific Gravity, Urine 1.015 (1.002-1.030); Urine Bilirubin Dipstick Negative (Negative); Urine Clarity Clear (Clear); Urine Urobilinogen 1 mg/dl (Normal)
[2022-07-11 14:20] LABS: Squamous Epithelial Cells - UA 5-10 SEEN /hpf (5-10)
[2022-07-11 14:21] LABS: Bacteria RARE /hpf (None Seen)
== END 2022-07-11 15:00 | disposition home or self-care (01) ==
PROVIDERS: Emergency Provider Student in an Organized Health Care Education/Training Program; Visit Provider Student in an Organized Health Care Education/Training Program
DX: O21.0 Mild hyperemesis gravidarum (principal); Z87.891 Personal history of nicotine dependence; Z3A.10 10 weeks gestation of pregnancy
CPT/HCPCS: 76801; 80048; 81001; 83690; 84702; 85025; 96361; 96374; 96375; 99284; J7030; A4216; J2405; J3490

== ENCOUNTER 2023-01-29 09:35 | Inpatient (IN) | payer MEDICAID, SELFPAY ==
--- NOTE | 2023-01-23 12:19 | PCM.HP.BLA ---
History and Physical Date of Admission: 01/29/23 Pre-Op History and Physical ? HPI: The patient is a 27 year old female presenting for pre-operative visit. She is scheduled for , for repeat cs on 01/29/23. Procedure discussed along with risks, benefits and complications. Other alternatives discussed for management. Consent form signed? Yes. ? ? PAST MEDICAL HISTORY PAST MEDICAL HISTORY Diagnosis Date ? depression/anxiety ? ? Hypothyroid ? ? PCOS (polycystic ovarian syndrome) ? ? ? PAST SURGICAL HISTORY PAST SURGICAL HISTORY Procedure Laterality Date ? DELIVERY ONLY ? 08/29/2019 ? C/S low transverse ? PAST SURGICAL HISTORY OF ? ? ? wisdom teeth ? ? ? CURRENT MEDICATIONS Current Outpatient Medications Medication Sig Dispense Refill ? BABY ASPIRIN ORAL Take by mouth. ? ? ? vit 93-egxx-ayqprt 6 (PRENATE ELITE) 26 mg iron- 1 mg tab Take 1 tablet by mouth once daily. 30 tablet 11 ? levothyroxine (SYNTHROID) 75 mcg tablet Take 1 tablet by mouth once daily. 30 tablet 2 ? No current facility-administered medications for this visit. ? ? ALLERGIES: Bactrim [Sulfamethoxazole-Trimethoprim] ? PERSONAL HISTORY: SOCIAL HISTORY Social History ? Tobacco Use ? Smoking status: Never ? Smokeless tobacco: Never Vaping Use ? Vaping Use: Former ? Quit date: 02/09/2019 Substance Use Topics ? Alcohol use: Not Currently ? Drug use: Yes ? ? Types: Marijuana ? ? Comment: daily ? FAMILY HISTORY: FAMILY HISTORY FAMILY HISTORY Problem Relation Age of Onset ? other (pulmonary atresia) Mother ? ? other (vsd) Mother ? ? other (transposition of great arteries) Mother ? ? Diabetes Father ? ? Thyroid Father ? ? Thyroid Sister ? ? Thyroid Sister ? ? other (gestational diabetes) Sister ? ? Depression Sister ? ? Thyroid Maternal Grandmother ? ? other (osteoarthritis) Maternal Grandmother ? ? Glaucoma Maternal Grandmother ? ? Heart Failure Maternal Grandfather ? ? Heart Attack Maternal Grandfather ? ? other (liver sclerosis) Paternal Grandfather ? ? ? REVIEW OF SYMPTOMS: negative except as noted above PHYSICAL EXAMINATION: ? VITALS: Blood pressure 104/60, weight 211 lb (95.7 kg), last menstrual period 04/10/2022. ? GENERAL: The patient is well nourished, well hydrated in no acute distress. , The patient is oriented to time, place, and person. NECK: Supple. No lynphadenopathy, normal thyroid, no thyromegaly. LUNGS: Clear to auscultation bilaterally. no wheezes, rhonchi or rales HEART: Regular rate and rhythm ? ? ? IMPRESSION: @ 38.2 weeks ? PLAN: repeat cs at 39 weeks ? Pt has been counseled on risks/benefits and alternatives of surgery including but not limited to anesthesia, bleeding, infection, injury to pelvic structures including bowel, bladder, ureters and vessels. Pt wishes to proceed with surgery at this time. Risk for transfusion reviewed ? I have reviewed and updated past medical and surgical history, medications and allergies Niki Ontiveros MD
[2023-01-29] VITALS (13 sets, daily range): BP systolic 87–114; BP diastolic 37–66; PULSE 59–75; RESP 12–18; TEMP 36.1–36.8; O2SAT 96–100; BMI 44.1
[2023-01-29] MEDS: Lactated Ringers 1,000 ML 50 ML IV (10:55)
[2023-01-29 11:05] LABS: Absolute Lymphocyte Count 2.33 X10^3/uL (0.83-4.51); Absolute Neutrophil Count 6.2 X10^3/uL (2.0-7.7); Basophil# 0.02 X10^3/uL; Basophil% 0.2 % (0-1); Eosinophil# 0.07 X10^3/uL; Eosinophils% 0.8 % (0-5); Hematocrit 38.7 % (37-47); Hemoglobin 12.8 g/dL (12.0-15.0); Lymphocyte # 2.33 X10^3/ul (0.83-4.51); Lymphocyte % 25.1 % (19-41); Mean Corp Hgb Conc 33.1 g/dL (32-36); Mean Corpuscular Hgb 29.3 pg (27.0-32.0); Mean Corpuscular Volume 88.6 fL (81-99); Mean Platelet Vol. 11.3 fl (6.2-12.0); Monocyte# 0.54 X10^3/uL; Monocyte% 5.8 % (0-10); NRBC Flagged by Analyzer 0 % (0-5); Neutrophil # 6.22 X10^3/uL (2.7-7.7); Neutrophil % 67.1 % (47-70); Platelet Count 257 K/mm3 (150-450); RBC Distribution Width CV 14.4 % (11.6-14.6); RBC Distribution Width SD 46.1 fl (35.1-43.9); Red Blood Count 4.37 M/mm3 (4.2-5.4); White Blood Count 9.3 K/mm3 (4.4-11.0)
[2023-01-29] MEDS: Sodium Citrate/Citric Acid 30 ML UDC PO (11:32)
[2023-01-29] MEDS: Acetaminophen 500 MG Tablet PO (11:33)
[2023-01-29] MEDS: Cefazolin 2 GM in 0.9% Normal Saline (100mL Bag) 100 ML IV (11:35)
[2023-01-29 12:04] LABS: Syphilis Antibodies Non-reactive
--- NOTE | 2023-01-29 12:56 | OP.PCM_ITS ---
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 She was then placed in the supine position. She was prepped and draped in the normal sterile fashion. Anesthesia was found to be adequate. At this time a Pfannenstiel skin incision was made with a knife was carried down to the underlying layer of the fascia. The fascial incision was then extended laterally using curved Posadas scissor. Rectus muscles were then in the midline bluntly and peritoneum was entered bluntly. Gentle opposing traction was placed. At this time the vesicouterine peritoneum was identified. Scalpel was used to make a uterine incision in a low transverse fashion. The uterus was then entered bluntly gentle opposing traction was placed to extend this incision. Membranes were ruptured clear. Infant's head was brought to the uterine incision was delivered atraumatically. Cord was clamped and cut infant was handed to the waiting nursery team. The Placenta was removed from the uterus. The uterus was then removed from the abdominal cavity. The uterus was cleared of all clots and debris using a lap. At this time the uterine incision was reapproximated using #1 Vicryl in a running locked fashion. Hemostasis was appreciated. Posterior cul-de-sac was then cleared of all clots and debris. Uterus was placed back in the abdominal cavity. Gutters were cleared of all clots and debris. Uterine incision was reevaluated and noted to be of excellent hemostasis. Zaida placed. At this time the peritoneum was grasped with Kellys reapproximated using #2 Vicryl suture in a running fashion. Fascia was then reapproximated using #1 Vicryl in a running fashion. Zaida placed over rectus. Subcu layer was irrigated with NS then zaida placed and then reapproximated with #2 0 plain gut suture in an interrupted fashion. Subcu layer was closed using 4-0 vicryll in a in a subcu fashion. Dry sterile dressing was applied. Instrument lap needle count correct ?2. Anticipated normal postoperative course. Presentation: Positive for Vertex Amniotic Membrane Rupture Type: Artificial Amniotic Fluid Description: Clear Placental Delivery Description: Expressed Placenta Disposition: [facility] Cord Vessel Description: 3 Vessels Cord Entanglement: None Infant A Gender: Male (1 minute): 9 (5 minute): 9 Delayed Cord Clamping: Yes Complications Risks of Surgery Discussed w/Patient: Bleeding, Anesthesia Risks, Infection, Need for Future C-Sections and Injury to surrounding structure(s) including bowel and bladder Complications: none
[2023-01-29] MEDS: Ketorolac 30 MG/ML Syringe IV ×2 (13:35→20:19)
[2023-01-29] MEDS: Oxytocin 15 Units/NS 250ml 15 UNITS/250 ML IV.SOLN 83 UNITS IV (13:37)
[2023-01-29 17:00] LABS: Amphetamine Urine VISTA NEGATIVE (<1000 ng/mL); Barbiturate Urine VISTA NEGATIVE (< 200 ng/mL); Benzodiazepine Urine VISTA NEGATIVE (< 200 ng/mL); Cocaine Urine VISTA NEGATIVE (< 300 ng/mL); Ecstacy Urine VISTA NEGATIVE (< 500 ng/mL); Methadone Urine VISTA NEGATIVE (< 300 ng/mL); PCP Urine VISTA NEGATIVE (< 25 ng/mL); THC Urine VISTA NEGATIVE (< 50 ng/mL); Vista UDS pH Range 7
[2023-01-29] MEDS: Acetaminophen 500 MG Tablet 1000 MG PO (17:19)
[2023-01-29] MEDS: 0.9% Saline Lock 10 ML Syringe IV (20:26)
[2023-01-30] MEDS: Acetaminophen 500 MG Tablet 1000 MG PO ×4 (00:21→18:38)
[2023-01-30 01:00] VITALS: BP 104/50; PULSE 77; RESP 18; TEMP 37.1; O2SAT 97
[2023-01-30] MEDS: Enoxaparin 40 MG/0.4 ML Syringe SC ×2 (01:58→14:49)
[2023-01-30] MEDS: 0.9% Saline Lock 10 ML Syringe IV ×2 (02:01→08:22)
[2023-01-30] MEDS: Ketorolac 30 MG/ML Syringe IV ×2 (02:01→08:21)
[2023-01-30 04:48] VITALS: BP 104/52; PULSE 84; RESP 18; TEMP 36.4; O2SAT 97
[2023-01-30] MEDS: Levothyroxine 100 MCG Tablet PO (06:00)
[2023-01-30 06:40] LABS: Hematocrit 32.8 % (37-47); Hemoglobin 10.7 g/dL (12.0-15.0); Mean Corp Hgb Conc 32.6 g/dL (32-36); Mean Corpuscular Hgb 29.6 pg (27.0-32.0); Mean Corpuscular Volume 90.9 fL (81-99); Mean Platelet Vol. 11.3 fl (6.2-12.0); Platelet Count 179 K/mm3 (150-450); RBC Distribution Width CV 14.6 % (11.6-14.6); RBC Distribution Width SD 48.4 fl (35.1-43.9); Red Blood Count 3.61 M/mm3 (4.2-5.4); White Blood Count 12.3 K/mm3 (4.4-11.0)
[2023-01-30 08:00] VITALS: BP 104/50; PULSE 67; RESP 16; TEMP 36.7; O2SAT 96
--- NOTE | 2023-01-30 08:07 | PN.OBGYN_ITS ---
Subjective Subjective Patient seen at bedside. Feeling well. Pain is controlled with Motrin and Tylenol PO. Patient ambulating and voiding without difficulty. Passing flatus. Denies any CP, SOB or dizziness. Objective Data Objective Data Vital Signs: Vital Signs Temp Pulse Resp BP Pulse Ox O2 Del Method 97.5 F L 84 18 104/52 L 97 Room Air 01/30/23 04:48 01/30/23 04:48 01/30/23 04:48 01/30/23 04:48 01/30/23 04:48 01/30/23 04:48 Oxygen Delivery Method Room Air Weight: 211 lb 6.4 oz Body Mass Index (BMI) 44.1 Intake & Output: Intake and Output for Last 24 Hours 01/28/23 01/29/23 01/30/23 23:59 23:59 23:59 Intake Total 2099.17 / 2099.17 1400 / 1400 Output Total 2350 / 2350 700 / 700 Balance -250.83 / -250.83 700 / 700 Lab / Micro Data 01/30/23 06:25 Labs: Laboratory Results - last 24 hr 01/29/23 10:55: WBC 9.3, RBC 4.37, Hgb 12.8, Hct 38.7, MCV 88.6, MCH 29.3, MCHC 33.1, RDW Std Deviation 46.1 H, RDW Coeff of Miguel 14.4, Plt Count 257, MPV 11.3, Immature Gran % (Auto) 1.000 H, Neut % (Auto) 67.1, Lymph % (Auto) 25.1, [place] % (Auto) 5.8, Eos % (Auto) 0.8, Baso % (Auto) 0.2, Absolute Neuts (auto) 6.2, Absolute Lymphs (auto) 2.33, Nucleated RBC % 0, Syphilis Total Ab Non-reactive, Blood Type A POSITIVE, Antibody Screen NEGATIVE 01/29/23 16:00: Urine Opiates Screen NEGATIVE, Urine Methadone Screen NEGATIVE, Ur Barbiturates Screen NEGATIVE, Ur Phencyclidine Scrn NEGATIVE, Ur Amphetamines Screen NEGATIVE, MDMA (Ecstasy) Screen NEGATIVE, U Benzodiazepines Scrn NEGATIVE, Urine Cocaine Screen NEGATIVE, U Cannabinoids Screen NEGATIVE, Ur Drug Screen Comment 01/30/23 06:25: WBC 12.3 H, RBC 3.61 L, Hgb 10.7 L, Hct 32.8 L, MCV 90.9, MCH 29.6, MCHC 32.6, RDW Std Deviation 48.4 H, RDW Coeff of Miguel 14.6, Plt Count 179, MPV 11.3 ROS Eyes Eyes: Denies blurry vision, change in vision or spots in vision ENT HEENT: Denies dizziness or headache(s) Cardiovascular Cardiovascular: Denies abdominal pain, chest pain or dyspnea Respiratory/Chest Respiratory/Chest: Denies cough, dyspnea, shortness of breath at rest or shortness of breath with exertion Gastrointestinal Gastrointestinal: Denies abdominal pain, diarrhea or vomiting Genitourinary Genitourinary: Denies change in urinary stream, difficulty urinating or dysuria Musculoskeletal Musculoskeletal: Reports none Integumentary Integumentary: Denies rash Neurologic Neurologic: Denies dizziness, headache(s), memory loss or weakness Physical Exam Narrative Dressing is dry and intact Const alert and no apparent distress General Appearance: cooperative and comfortable Exam Limitations: no limitations HEENT normocephalic Eyes General Eye: normal appearance of both eyes Neck full ROM General: normal visual inspection Chest Chest: symmetrical chest wall rise Resp normal respiratory effort and normal air movement Effort and Inspection: symmetric chest movement Auscultation: clear to auscultation bilaterally Cardio regular rate and regular rhythm GI normal to inspection, nondistended, normoactive bowel sounds Back/Spine normal ROM Extremity full ROM and no calf tenderness General Extremity: normal exam except as noted Skin no rashes or lesions noted Neuro CN's II-XII intact bilaterally Psych mental status grossly normal Assessment & Plan (1) Status post repeat low transverse section: (2) Care and examination of lactating mother: PLAN: Plan POD 1 Repeat C/s Routine care Pain control Increase ambulation Anticipate discharge home tomorrow
[2023-01-30 09:06] VITALS: O2SAT 96
[2023-01-30 14:00] VITALS: BP 106/55; PULSE 69; RESP 16; TEMP 36.7; O2SAT 98
[2023-01-30] MEDS: Ibuprofen 600 MG Tablet PO (14:48)
--- NOTE | 2023-01-30 16:01 | NURSING ---
reviewed and agree with student charting that is used for educational and learning purposes.
--- NOTE | 2023-01-30 16:13 | CASEMGMT ---
Social Work Assessment Labor and Delivery Unit Patient Address [address] [place] [address]: Phone number: [phone] Date of Referral: 01/29/23 Time of Referral:? 0830 Referred By: Bedside RN, Charge Nurse Date of Intervention: ??01/30/23 Time of Intervention:? 1500 Reason for Referral:? Hx of depression and anxiety Sw completed chart review and observes maternal history of depression and anxiety. Sw presented to bedside and introduced self to mother of baby (MOB- Kellie) and father of baby (FOB- Doug). Sw explained reason for sw involvement and completed psychosocial assessment. Sw asked FOB to step out of room momentarily so that MOB could complete [place] Depression Scale. History obtained from: medical records and mother of baby (ELENITA), MILESB Household composition: Currently residing in the home is ALIVIA KWONG, their older daughter and now baby boy. Parents state housing is safe, no concerns. - Older daughter's name is: Mitra (: 08/29/2019) Patient's parent/guardian status:? Parents state they went to high school together and are high school sweethearts, they have been together for 7 years. When meeting with MOB privately she denies any concerns of domestic violence and intimate partner violence. Medical History: ?ELENITA is 2, para 1- now 2. ELENITA received routine are with [facility] during . ELENITA delivered baby via repeat scheduled on 01/29/23. Baby boy, named Tonny Lorenzana, was born weighing 8lb 9oz and his apgars were 9 and 9 at one and five minutes of life respectfully. ELENITA states that baby is breast feeding well and she has a pump for home. Baby will be followed by Dr. Chance for pediatrics. Educational Status:? Both parents gradated from high school, no college education. Financial Status: FOB is employed outside of the home as a industrial refrigeration mechanic, he states that he is able to take 3-4 days off of work. MOB is a stay at home mom. Supplies:?Parents report they have obtained all necessary baby supplies including: car seat, safe sleep space, clothes, diapers, wipes and a breast pump? Childcare/Caregiver(s): MOB will be the primary caregiver to baby, along with FOB when he is not at work. Transportation:?? Both parents have their drivers license and reliable means of transportation. .No transportation barriers at this time. Programs/Agencies Involved: ??MOB is connected to [facility] for Medicaid insurance and WIC. ? Children Services/Legal Issues:??MOB denies prior involvement with Children Services and denies any legal involvement. MOB expressed understanding when sw informed her that sw will need to make a referral to [facility] due to MOB using marijuana in July when she found out she was in May. MOB and FOB expressed understanding. ? Behavioral Health Issues: ??Mental Health History:??FOB states that he has been diagnosed with anxiety, depression and ADHD. FOB states that he was prescribed medications at one point in time but he did not take them. FOB states that he is not prescribed anything at this time, he feels as though his mental health is managed. MOB stated that she has been diagnosed with anxiety and depression and has also been prescribed medications in the past, but did not take them and is not currently prescribed anything. MOB completed [place] Depression Scale and her score was a 3. Sw provided education and support. MOB states that she used to be connected to counseling but she is not any more. ? Substance Use History: MOB disclosed that she used marijuana one time in July, and no other times during . MOB states that she used to self medicate her mental health symptoms. ?? Family History:ALIVIA states that his parents have been diagnosed with mental health diagnoses, Mom- BiPolar, Dad- BiPolar, ADHD. .FOB states that his father is also an addict, of all substances and he has not seen him in 15 years. ? Drug Screens: MOB urine screen was negative, baby urine not in chart and meconium not returned. ?? Family/Social Stressors:? None identified at this time. Support Systems: Both sets of grandparents are supportive. Depression/Shaken Baby/Safe Sleeping:? Sw provided education on signs and symptoms of baby blues and depression/ anxiety, and psychosis. Sw encouraged parents to read literature also provided by social work. Sw encouraged MOB to get connected to counselor again during this period. MOB expressed understanding. Sw educated parents on shaken baby prevention and ABCs of safe sleep. Parents expressed understanding. Referral: Sw made referral to [facility], spoke to hotline screenerOlga. Olga stated that without a positive urine/ drug screen the referral will be screened out. Olga asked to be updated if a meconium returned positive for THC. ASSESSMENT:? MOB and baby still admitted following labor and delivery. MOB with mental health and substance use history. MOB with supports in place. FOB talkative and open during social work assesment. MOB more reserved and reluctant to open up. MOB expressed concern of CSB potentially getting involved. Ongoing support provided. Safe Plan of Care for related to substance use:? MOB states that she agrees to no longer use THC. PLAN:? MOB and baby to be discharged when medically ready. ?No other services requested or indicated. Anne Belle, CONSULTING SALES MANAGER, EMPLOYMENT INTERVIEWER
--- NOTE | 2023-01-30 17:35 | PCM.DC.SUM ---
Providers Date of Admission: 01/29/23 Primary Care Physician: PAKO SNOW Reason For Visit: REPEAT C SECTION Diagnosis Discharge Diagnosis (1) Status post repeat low transverse section: Status: Acute Code(s): Z98.891 - History of uterine scar from previous surgery (2) Care and examination of lactating mother: Status: Acute Code(s): Z39.1 - Encounter for care and examination of lactating mother Plan POD 1 Repeat C/s Routine care Pain control Increase ambulation Medications at Discharge Home Medications vit no.95-ferrous fumarate 28 mg-folic acid 800 mcg tablet 1 ea PO DAILY 04/06/19 levothyroxine 100 mcg tablet 100 mcg PO DAILY hypothyroidism 08/29/19 acetaminophen 500 mg tablet 1,000 mg (2 x 500 mg) PO Q8H PRN PRN Pain Score 1-3/10;Temp>99.6F 08/31/19 hydrocortisone 2.5 % topical cream 1 applic topical TID PRN PRN Discomfort #1 tube 08/31/19 ibuprofen 600 mg tablet 600 mg PO Q6H PRN PRN Pain Score 1-3/10 08/31/19 nystatin 100,000 unit/gram topical cream 1 applicatio TP TID #30 grams 08/31/19 ondansetron HCl 4 mg tablet 4 mg PO Q8H PRN PRN Nausea #10 tabs 08/31/19 sennosides 8.6 mg-docusate sodium 50 mg tablet 1 tab PO DAILY PRN Constipation #15 tabs 08/31/19 ondansetron 4 mg disintegrating tablet 4 mg PO Q8H PRN PRN Nausea #14 tabs 07/11/22 acetaminophen 500 mg tablet 1,000 mg (2 x 500 mg) PO Q6 #0 tabs 01/30/23 hydrocortisone 2.5 % topical cream 1 applic topical TID PRN PRN Discomfort #0 grams 01/30/23 ibuprofen 600 mg tablet 600 mg PO Q6H #0 tabs 01/30/23 levothyroxine 100 mcg tablet 100 mcg PO DAILY@0600 #0 tabs 01/30/23 sennosides 8.6 mg-docusate sodium 50 mg tablet (Stool Softener-Stimulant Laxative) 1 - 2 tab PO DAILY #0 tabs 01/30/23 Hospital Course Operations section Summary of Care Provided Minutes Spent on Discharge: 20 Hospital Course: Patient was for a scheduled repeat section. Hospital course was uneventful. Physical Exam Narrative Dressing is dry and intact Const alert and no apparent distress General Appearance: cooperative and comfortable Exam Limitations: no limitations HEENT normocephalic Eyes General Eye: normal appearance of both eyes Neck full ROM General: normal visual inspection Chest Chest: symmetrical chest wall rise Resp normal respiratory effort and normal air movement Effort and Inspection: symmetric chest movement Auscultation: clear to auscultation bilaterally Cardio regular rate and regular rhythm GI normal to inspection, nondistended, normoactive bowel sounds Back/Spine normal ROM Extremity full ROM and no calf tenderness General Extremity: normal exam except as noted Skin no rashes or lesions noted Neuro CN's II-XII intact bilaterally Psych mental status grossly normal Weight / BMI Weight Weight: 211 lb 6.4 oz Body Mass Index (BMI) 44.1 ABG / Lab / Microbiology Data 01/30/23 06:25 Laboratory: Laboratory Results - last 24 hr 01/30/23 06:25: WBC 12.3 H, RBC 3.61 L, Hgb 10.7 L, Hct 32.8 L, MCV 90.9, MCH 29.6, MCHC 32.6, RDW Std Deviation 48.4 H, RDW Coeff of Miguel 14.6, Plt Count 179, MPV 11.3 D/C Instructions Discharge Diet: No restrictions May resume sexual activity in: 6-8 weeks Weight Bearing Status: Weight bearing as tolerated Lifting Restrictions: 20 lbs Call your doctor if your incision/area has: Continuous Slow Oozing, Increased Pain/ Swelling, Increased Redness, Foul Smelling Discharge and Swelling at the incision site Call your doctor if you observe: Fever of 101 or Higher, Inability to urinate, Using more than 1 pad per hour, Shortness of breath, Chest pain, Calf discomfort and Uncontrolled pain Remove Dressing in: 5 days Cleanse incision/area with: Soap & Water and Keep Dressing Clean & Dry Please Follow Up With: Anitha Mcpherson CNM When: 1 week in office for incision check or sooner if needed 6 weeks Meaningful Use Info Meaningful Use Diagnoses (Choose all that apply): None applicable Discharge Plan Admission Admit Date/Time: 01/29/23 09:35 Primary Reason for Your Visit: Repeat Section Attending Provider: Niki Coleman Primary Care Provider: PAKO SNOW Instructions Patient Instructions: After a Discharge Orders/Prescriptions Prescriptions: New sennosides-docusate sodium [Stool Softener-Stimulant Laxat] 8.6-50 mg Tablet 1 - 2 tab PO DAILY Qty: 0 0RF acetaminophen 500 mg Tablet 1,000 mg PO Q6 Qty: 0 0RF levothyroxine 100 mcg Tablet 100 mcg PO DAILY@0600 Qty: 0 0RF hydrocortisone 2.5 % Cream 1 applic topical TID PRN PRN (Reason: Discomfort) Qty: 0 0RF Protocol: *Topical Application Instructions APPLICATION INSTRUCTIONS: Give for discomfort with pad changes ibuprofen 600 mg Tablet 600 mg PO Q6H Qty: 0 0RF No Action PNV cmb#95-ferrous fumarate-FA 1 EACH tablet 1 ea PO DAILY levothyroxine 100 MCG tablet 100 mcg PO DAILY sennosides-docusate sodium 1 TABLET tablet 1 tab PO DAILY PRN (Reason: Constipation) Qty: 15 0RF acetaminophen 500 MG tablet 1,000 mg PO Q8H PRN PRN (Reason: Pain Score 1-3/10;Temp>99.6F) 0RF hydrocortisone 1 APPLIC cream 1 applic topical TID PRN PRN (Reason: Discomfort) Qty: 1 0RF Protocol: *Topical Application Instructions APPLICATION INSTRUCTIONS: Give for discomfort with pad changes Rx Instructions: Apply to abdominal area for 1 week and then as needed ibuprofen 600 MG tablet 600 mg PO Q6H PRN PRN (Reason: Pain Score 1-3/10) 0RF ondansetron HCl 4 MG tablet 4 mg PO Q8H PRN PRN (Reason: Nausea) Qty: 10 0RF nystatin 15 GM cream 1 applicatio TP TID Qty: 30 0RF Rx Instructions: apply to abdominal erythema ondansetron 4 mg tablet,disintegrating 4 mg PO Q8H PRN PRN (Reason: Nausea) Qty: 14 0RF Referrals / Follow Up: PAKO SNOW [Other] Disposition Disposition (needs filled in before D/C Order can be placed): Home, Self Care
[2023-01-30 19:43] VITALS: BP 109/55; PULSE 62; RESP 16; TEMP 36.5; O2SAT 98
== END 2023-01-30 20:00 | disposition home or self-care (01) | DRG 540 ==
PROVIDERS: Obstetrics & Gynecology; Admitting Provider Obstetrics & Gynecology; Visit Provider Obstetrics & Gynecology
PROC: 10D00Z1 Extraction of Products of Conception, Low, Open Approach (ICD-10-PCS; CPT 59514; principal; 2023-01-29 11:45)
DX: O34.211 Maternal care for low transverse scar from previous cesarean delivery (principal); O99.214 Obesity complicating childbirth; Z37.0 Single live birth; Z3A.39 39 weeks gestation of pregnancy; Z87.891 Personal history of nicotine dependence
CPT/HCPCS: 59025; 59050; 80307; 85025; 85027; 86780; 86850; 86900; 86901; 99221; 99252; J7120; A4216; G0378; G0463; J2405